=== PATIENT | female | born 1930 | race Caucasian/White ===

== ENCOUNTER → 2017-04-08 | Outpatient (REF) | payer MEDICARE, BC | LOC: M LAB REF 11:08 | PROVIDERS: ATTEND Radiology Practitioner Assistant | DX: R92.0 Mammographic microcalcification found on diagnostic imaging of breast (principal) ==

== ENCOUNTER → 2017-08-30 | Outpatient (CLI) | payer MEDICARE, BC | LOC: M RAD 09:51 | DX: M54.5 Low back pain (principal) | CPT/HCPCS: 78306 ==

== ENCOUNTER → 2018-02-28 | Outpatient (CLI) | payer MEDICARE, BC | LOC: M WUC 13:58 | DX: M25.762 Osteophyte, left knee (principal) | CPT/HCPCS: 73564 ==

== ENCOUNTER 2018-07-27 16:51 | Emergency (ER) | payer MEDICARE, BC ==
[~2018-07-27] VITALS: Ht 160 cm; Wt 77.3 kg
[2018-07-27] MEDS ORDERED: ROSU10TA5 PO (17:02)
[2018-07-27] MEDS ORDERED: OMEP-218 PO (17:02)
[2018-07-27] MEDS ORDERED: LISI10TA4 PO (17:02)
[2018-07-27] MEDS ORDERED: TRAZ-160 PO (17:02)
[2018-07-27] MEDS ORDERED: DULO1CAP3 PO (17:02)
[2018-07-27] MEDS ORDERED: MORPHINE 2 MG/ML 1ML SYRINGE (J2270) IV PRN (17:30)
[2018-07-27] MEDS ORDERED: NS 1,000 ML IV ONE (17:30)
[2018-07-27] MEDS ORDERED: ONDANSETRON 4MG/2ML VIAL (J2405) IV ONE (17:30)
[2018-07-27 17:34] LABS: BASO # 0.1 10^3/uL (0.0-0.2); BASO % 0.3 % (0.0-1.0); EOS # 0.2 10^3/uL (0.0-0.50); EOS % 0.9 % (0.0-3.0); HEMATOCRIT 44.6 % (36.0-47.0); HEMOGLOBIN 14.8 g/dl (12.0-15.5); LYMPH # 1.8 10^3/uL (1.5-4.5); LYMPH % 9.7 % (24.0-44.0); MEAN CORPUSCULAR HEMOGLOBIN 31.9 pg (27.0-33.0); MEAN CORPUSCULAR HGB CONC 33.2 g/dl (32.0-36.5); MEAN CORPUSCULAR VOLUME 96.1 fl (80.0-96.0); MONO # 0.7 10^3/uL (0.0-0.8); NEUTROPHILS # 15.8 10^3/uL (1.8-7.7); NEUTROPHILS % 84.7 % (36.0-66.0); PLATELET COUNT, AUTOMATED 511 10^3/uL (150-450); RED BLOOD COUNT 4.64 10^6/uL (4.00-5.40); WHITE BLOOD COUNT 18.7 10^3/uL (4.0-10.0)
[2018-07-27 17:48] LABS: ALBUMIN 4.2 GM/DL (3.2-5.2); ALT/SGPT 16 U/L (12-78); AMYLASE 51 U/L (25-115); BILIRUBIN,DIRECT 0.1 MG/DL (0.0-0.2); BILIRUBIN,TOTAL 0.4 MG/DL (0.2-1.0); BLOOD UREA NITROGEN 24 MG/DL (7-18); CALCIUM LEVEL 9.4 MG/DL (8.8-10.2); CARBON DIOXIDE LEVEL 25 MEQ/L (21-32); CHLORIDE LEVEL 106 MEQ/L (98-107); CPK CREATINE PHOSPHOKINASE 118 U/L (26-192); CREATININE FOR GFR 1.26 MG/DL (0.55-1.30); GLOMERULAR FILTRATION RATE 42.9 (>32); GLUCOSE, FASTING 133 MG/DL (70-100); LIPASE 105 U/L (73-393); MB/CK RELATIVE INDEX 0.93 (< OR =4); POTASSIUM SERUM 4.5 MEQ/L (3.5-5.1); SODIUM LEVEL 142 MEQ/L (136-145); TOTAL PROTEIN 7.9 GM/DL (6.4-8.2); TROPONIN I < 0.02 NG/ML (< 0.10)
[2018-07-27] MEDS ORDERED: ISOVUE-370 76% 125ML VIAL (Q9967 PER ML) As Ordered ONE (17:51)
--- NOTE | 2018-07-27 19:07 | REP ---
Clinical: Abdominal pain with nausea and diarrhea. Technique: Axial contrast enhanced images from the lung bases to the pubic symphysis using 100 ml Isovue 370 intravenous contrast material with coronal and sagittal re-formations. Comparison: 09/25/2007. Findings: Lung bases demonstrate mild chronic interstitial changes and minimal subpleural fibrosis. Visualized portions of the heart and pericardium are grossly normal. Liver, spleen, pancreas, gallbladder, and bilateral adrenal glands are normal. Atrophic left kidney identified with stable cysts and nonobstructing intrarenal calculi. Right kidney demonstrates few small simple cysts up to 1 cm and no obvious nephrolithiasis. The enteric system is without obstruction or acute inflammatory process. Normal cecum and terminal ileum are identified in the right lower quadrant. Colonic and sigmoid diverticulosis noted without acute diverticulitis. Evaluation of the pelvis demonstrates normal bladder and chronic 5 mm calculus in the distal left ureter. Evidence of prior hysterectomy noted. No ascites. No free air. No adenopathy. Infrarenal IVC filter identified. Atherosclerotic changes to the aorta and vasculature noted without aneurysm. Postsurgical changes involving the thoracolumbar spine noted. Impression: 1. No definite acute abdominopelvic pathology appreciated. 2. Chronic changes to the bilateral kidneys along with bilateral cysts, nonobstructing left intrarenal calculi, and chronic 5 mm distal left ureteral calculus unchanged from 2007 and without perinephric stranding or hydronephrosis. 3. Sigmoid diverticulosis without acute diverticulitis. 4. Further chronic changes as noted above. No ascites, focal inflammatory stranding, or adenopathy appreciated. Electronically Signed by Parviz Goldstein MD 07/27/2018 06:58 P
--- NOTE | 2018-07-27 19:23 | ECGEPIP ---
Stationary ECG Study [facility] - ED Test Date: 2018-07-27 Pat Name: SHIRA MARTINS Department: Room: - Gender: [employer] Operator: CHARANJITKARLA : [id number] Requested By: SHIN Garcia Order Number: [id number] Reading MD: Aime Sherman Measurements Intervals [place] Rate: 96 P: 52 MI: 207 QRS: -20 QRSD: 88 T: 57 QT: 332 QTc: 419 Interpretive Statements SINUS RHYTHM SEPTAL MYOCARDIAL INFARCTION, OF INDETERMINATE AGE LAD NONSPECIFIC ST T WAVE CHANGES NO OLD ECG FOR COMPARISON Electronically Signed On 07-27-2018 19:23:14 EDT by Aime Sherman
[2018-07-27 19:45] VITALS: BP 167/76
== END 2018-07-27 20:14 | disposition home or self-care (01) ==
LOC: EDSEX 16:51 → M ED 16:51 → EDBD 16:51 → M ED 20:14
DX: A04.8 Other specified bacterial intestinal infections (principal); I10 Essential (primary) hypertension; R73.03 Prediabetes; K21.9 Gastro-esophageal reflux disease without esophagitis; Z79.899 Other long term (current) drug therapy
CPT/HCPCS: 74177; 80048; 80076; 82150; 82550; 82553; 83605; 83690; 84484; 85025; 93005; 93041; 96374; 96375; 99284; J2270; J2405; Q9967

== ENCOUNTER → 2019-06-30 | Outpatient (REF) | payer MEDICARE, BC ==
[~2019-06-30] MED LIST: DULO1CAP6 PO; LISI10TA4 PO; OMEP-218 PO; ROSU10TA6 PO; TRAZ-252 PO
[2019-06-30 17:23] LABS: PTH INTACT 104.4 PG/ML (18.5-88.0)
== END ==
LOC: M LAB REF 16:12
PROVIDERS: ATTEND Internal Medicine
DX: N18.3 Chronic kidney disease, stage 3 (moderate) (principal)

== ENCOUNTER 2020-10-13 15:03 | Emergency (ER) | payer MEDICARE, BC ==
[~2020-10-13] VITALS: Ht 160 cm; Wt 79.5 kg
[2020-10-13 15:03] VITALS: BP 143/66
[~2020-10-13 15:03] MED LIST changes: +LISI10TA22 PO; -LISI10TA4 PO
[2020-10-13] MEDS ORDERED: LATA0.0015 (15:13)
[2020-10-13] MEDS ORDERED: LISI20TA33 (15:13)
[2020-10-13] MEDS ORDERED: AUGM875T28 PO (16:54)
[2020-10-13] MEDS ORDERED: AUGMENTIN 875 MG TAB PO ONE (16:55)
[2020-10-13] MEDS ORDERED: BOOSTRIX/ADACEL VACCINE (DIPHTH/PERTUSS/ACELL/TETANUS) 0.5ML SYR IM ONE (16:55)
== END 2020-10-13 17:45 | disposition home or self-care (01) ==
LOC: M ED 15:03
DX: S51.852A Open bite of left forearm, initial encounter (principal); W54.0XXA Bitten by dog, initial encounter; Y92.009 Unspecified place in unspecified non-institutional (private) residence as the place of occurrence of the external cause; Y93.K9 Activity, other involving animal care; Y99.9 Unspecified external cause status; Z79.899 Other long term (current) drug therapy

== ENCOUNTER 2021-01-05 16:49 | Inpatient (IN) | payer MEDICARE, BC ==
[~2021-01-05] VITALS: Ht 162.6 cm; Wt 85.4 kg
[~2021-01-05 16:49] MED LIST changes: +AUGM875T28 PO; +LATA0.0015; +LISI20TA33
[2021-01-05] MEDS ORDERED: MAG-400T7 PO (17:13)
[2021-01-05] MEDS ORDERED: NITR0.4S14 SL (17:13)
[2021-01-05] MEDS ORDERED: METO1TAB32 PO ×2 (17:13→22:44)
[2021-01-05] MEDS ORDERED: traMADol 50 MG TAB PO ONE (17:30)
--- NOTE | 2021-01-05 18:07 | REP ---
INDICATION: pain COMPARISON: None TECHNIQUE: Four views no sunrise view FINDINGS: Bicompartmental calcifications are noted consistent with either calcified meniscal degenerative changes or calcium pyrophosphate deposition disorder. There is no acute fracture, dislocation, or subluxation. IMPRESSION: Chronic changes as described above. <Electronically signed by Vickey Sanchez > 01/05/21 [id number]
--- NOTE | 2021-01-05 18:09 | REP ---
INDICATION: pain. COMPARISON: None TECHNIQUE: AP and frog-lateral views FINDINGS: There is no acute fracture or destructive osseous lesion IMPRESSION: Within normal limits for age no acute abnormality <Electronically signed by Vickey Sanchez > 01/05/21 [id number]
[2021-01-05 19:59] LABS: BASO % 0.5 % (0.0-1.0); EOS # 0.1 10^3/uL (0.0-0.5); EOS % 0.6 % (0.0-3.0); HEMATOCRIT 30.1 % (36.0-47.0); HEMOGLOBIN 9.6 g/dl (12.0-15.5); LYMPH # 1.7 10^3/uL (1.5-5.0); LYMPH % 22.3 % (24.0-44.0); MEAN CORPUSCULAR HEMOGLOBIN 30.5 pg (27.0-33.0); MEAN CORPUSCULAR HGB CONC 31.9 g/dl (32.0-36.5); MEAN CORPUSCULAR VOLUME 95.6 fl (80.0-96.0); MONO # 0.7 10^3/uL (0.0-0.8); NEUTROPHILS # 5.2 10^3/uL (1.5-8.5); NEUTROPHILS % 65.9 % (36.0-66.0); PLATELET COUNT, AUTOMATED 189 10^3/uL (150-450); RED BLOOD COUNT 3.15 10^6/uL (4.00-5.40); WHITE BLOOD COUNT 7.8 10^3/uL (4.0-10.0)
[2021-01-05 20:14] LABS: CALCIUM LEVEL 8.7 MG/DL (8.8-10.2); CREATININE FOR GFR 1.71 MG/DL (0.55-1.30); GLOMERULAR FILTRATION RATE 29.9 (>32); POTASSIUM SERUM 4.7 MEQ/L (3.5-5.1)
[2021-01-05 20:26] LABS: RSV AMPLIFICATION NEGATIVE (NEGATIVE)
[2021-01-05] MEDS ORDERED: GLUCAGON INJ 1MG VIAL SC PRN (20:55)
[2021-01-05] MEDS ORDERED: DEXTROSE 50% 50 ML SYRINGE IV PRN (20:55)
[2021-01-05] MEDS ORDERED: ACETAMINOPHEN TAB 650MG DOSE (2X325MG) PO PRN (20:55)
[2021-01-05] MEDS ORDERED: GLUCOSE 4GM CHEW TABLET PO PRN (20:55)
[2021-01-05] MEDS ORDERED: HumaLOG INSULIN (NovoLOG) PER UNIT SC SCH (21:00)
[2021-01-05 21:28] LABS: PERCENT SATURATION 26.3 % (13.2-45.0)
[2021-01-05] MEDS: traMADol 50 MG TAB PO PRN (21:35)
[2021-01-05] MEDS ORDERED: XALA0.007 OU (22:22)
[2021-01-05] MEDS ORDERED: NITR4TASL SL (22:22)
[2021-01-05] MEDS ORDERED: REFR0.5D8 OU (22:22)
[2021-01-05] MEDS ORDERED: LISI20TA33 PO (22:22)
[2021-01-05] MEDS ORDERED: MAGN400T3 PO (22:22)
[2021-01-05] MEDS ORDERED: ROSU10TA6 PO (22:22)
[2021-01-05] MEDS ORDERED: ASPI-161 PO (22:24)
[2021-01-05] MEDS ORDERED: HOME MED LIST COMPLETE! XX SCH (22:25)
[2021-01-05] MEDS ORDERED: NS 1,000 ML IV SCH (22:30)
[2021-01-05 22:54] LABS: MAGNESIUM LEVEL 2.1 MG/DL (1.8-2.4)
--- NOTE | 2021-01-05 23:12 | HPEPDOC ---
General Date of Admission 01/05/21 Date of Service: Jan 05, 2021 Chief Complaint Knee Pain. Source: Patient History of Present Illness Arabella Salinas 89-year-old female with significant history of hypertension, hyperlipidemia, chronic low back pain, GERD, heart murmur and glaucoma who presents with complaints of right knee pain. Patient reports that she has been at baseline until yesterday she was getting into her car and as she put her left leg into the car and was turning to get her right leg into the car she heard a "snap" and felt instant right knee pain sharp moderate level worse with ambulation to the point where patient reports that she had trouble walking with her walker and had to come into ER today. Patient reports that she had to call EMS in order to come to the hospital. Pt denies petty, sinus congestion, sore throat, productive cough, palpitations, chest pain, n/v/d, abdominal pain, weakness, sensory changes or syncope. She reports that she has trouble walking not because the knee gives out or weakness but because of the pain when she puts any weight on the right side. She denies history of knee surgery or trauma. Patient does also to note some dyspnea on exertion with review of systems but this is not more than baseline; patient somewhat poor historian but remarks regarding having a heart murmur and her doctor told her she can no longer walk very far such as to the mailbox. She denies a history of CHF, but does describe history of smoking 20+ years. Patient lives at home alone and she is agreeable to home health or rehab if needed. Home Medications Scheduled Aspirin (Aspirin EC) 81 Mg Tablet.dr, 81 MG PO DAILY, (Reported) Duloxetine Hcl (Duloxetine HCl) 60 Mg Cap, 60 MG PO DAILY, (Reported) Latanoprost (Xalatan) 0.005% 2.5ML Drops, 1 DROP OU QHS, (Reported) Lisinopril (Lisinopril) 20 Mg Tablet, 20 MG PO DAILY, (Reported) Magnesium Oxide (Magnesium Oxide) 400 Mg Tablet, 800 MG PO QHS, (Reported) Metoprolol Succinate (Metoprolol Succinate) 25 Mg Tab.er.24h, 25 MG PO DAILY, (Reported) Omeprazole (Omeprazole) 20 Mg Cap, 20 MG PO DAILY, (Reported) Rosuvastatin Calcium (Rosuvastatin Calcium) 10 Mg Tablet, 10 MG PO DAILY, (Reported) Trazodone HCl (Trazodone HCl) 50 Mg Tab, 50 MG PO QHS, (Reported) Scheduled PRN Carboxymethylcellulose Sodium (Refresh Tears) 15 Ml Drops, 1 DROP OU QID PRN for DRY EYES, (Reported) Nitroglycerin (Nitrostat) 0.4 Mg Tab.subl, 0.4 MG SL NITRO PRN for CHEST PAIN, (Reported) Allergies Coded Allergies: No Known Allergies (Unverified , 07/27/18) Past Medical History Medical History hypertension, hyperlipidemia, chronic low back pain, GERD, heart murmur, "1 working kidney", macular degeneration and glaucoma Surgical History Appendectomy, hysterectomy, 3 back surgeries over 10 years ago Family History Significant Family History: Diabetes Social History * Smoker: former Smoker (Smoked for over 20 years; reports quitting 20 years ago) Alcohol: Denies Drugs: denies Recent Travel/Sick Contacts: Denies: Recent travel, Recent sick contacts Psychosocial History: No pertinent psych hx Patient lives at home alone A-FIB/CHADSVASC A-FIB History Current/History of A-Fib/PAF?: No Current PO Anticoag Therapy: No Review of Systems Constitutional: Denies: Chills, Fever, Night Sweats Eyes: Denies: Pain, Vision change ENT: Denies: Head Aches, Ear Pain, Dysphagia Skin: Denies: Rash, Lesions, Breakdown Pulmonary: Denies: Dyspnea, Cough Cardiovascular: Reports: Other Symptoms; Denies: Chest Pain, Palpitations, Orthopnea, Paroxysmal Noc. Dyspnea, Lt Headedness Gastrointestinal: Denies: Nausea, Vomiting, Abdominal Pain, Diarrhea Genitourinary: Denies: Dysuria, Frequency, Incontinence, Retention Hematologic: Denies: Bruising, Bleeding Excessively Musculoskeletal: Reports: Joint Pain; Denies: Neck Pain, Back Pain, Muscle Pain, Spasms Neurological: Denies: Weakness, Numbness, Change in speech, Confusion Psych: Reports: Mood Normal; Denies: Depression, Memory Issues Physical Examination General Exam: Positive: Alert, No Acute Distress Eye Exam: Positive: PERRLA, Conjunctiva & lids normal, EOMI; Negative: Sclera icteric ENT Exam: Positive: Atraumatic, Mucous membr. moist/pink, Pharynx Normal Neck Exam: Positive: Supple; Negative: JVD, thyromegaly Chest Exam: Positive: Clear to auscultation, Normal air movement Heart Exam: Positive: Rate Normal, Regular Rhythm, Murmurs; Negative: Rubs Abdomen Exam: Positive: Normal bowel sounds, Soft; Negative: Tenderness, Hepatospenomegaly Extremity Exam: Positive: Normal pulses, Tenderness, Swelling, Other (Right knee tenderness with palpation, anterior below the kneecap as well as lateral aspect of the knee (along be meniscus zone); passive ROM intact); Negative: Clubbing, Cyanosis, Edema Skin Exam: Positive: Nl turgor and temperature; Negative: Breakdown, Lesion Neuro Exam: Positive: Normal Speech, Strength at 5/5 X4 ext, Cranial Nerves 3- 12 NL, Reflexes 2+; Negative: Normal Gait Psych Exam: Positive: Mental status NL, Mood NL, Oriented x 3 Vital Signs Vital Signs Date Time Temp Pulse Resp B/P (MAP) Pulse Ox O2 Delivery O2 Flow Rate FiO2 01/05/21 20:19 91 95 01/05/21 20:15 16 153/107 (122) Room Air 01/05/21 17:04 97.8 Laboratory Data Labs 24H Laboratory Tests 2 01/05/21 19:27: Immature Granulocyte % (Auto) 1.7, Neutrophils (%) (Auto) 65.9, Lymphocytes (%) (Auto) 22.3L, Monocytes (%) (Auto) 9.0H, Eosinophils (%) (Auto) 0.6, Basophils (%) (Auto) 0.5, Neutrophils # (Auto) 5.2, Lymphocytes # (Auto) 1.7, Monocytes # (Auto) 0.7, Eosinophils # (Auto) 0.1, Basophils # (Auto) 0.0, Nucleated Red Blood Cells % (auto) 0.0, Anion Gap 8, Glomerular Filtration Rate 29.9L, Calcium Level 8.7L, Coronavirus (COVID-19)(PCR) NEGATIVE, Influenza Type A (RT-PCR) N EGATIVE, Influenza Type B (RT-PCR) NEGATIVE, Respiratory Syncytial Virus (PCR) NEGATIVE CBC/BMP Laboratory Tests 01/05/21 19:27 RAD Interpretation STUDY: Hip x-ray Rad Actions: Report Reviewed STUDY: Right knee x-ray Rad Actions: Report Reviewed, Discussed with the pt Assessment/Plan 1. Right knee pain: X-ray "Bicompartmental calcifications are noted consistent with either calcified meniscal degenerative changes or calcium pyrophosphate deposition disorder. There is no acute fracture, dislocation, or subluxation." - Pt denies hx of knee pain, but in 2018 xray of left knee gave similar read of CPPD -Symptom management/supportive care with Abebe wrap, pain medication, lido patch and NSAID patch -Will trial prednisone, pt a1c 6, chart review questionable for NIDDM, but pt denies hx of DM and BG checks have been BG <130 -Appreciate physical therapy eval and treatment -Consider CT of knee and Ortho consult 2. Dyspnea on exertion in patient with murmur/ anemia/former smoker: NEELY described as progressive overtime. Hemoglobin 9.6. Last hemoglobin 14.8 in 2019. Chest x-ray pending. She denies any history of anemia, dark stools or recent blood loss/surgery. Possibly some symptomatic anemia component. -Will check anemia profile. Check Hemoccult. -A.m. labs. -As needed breathing treatment -consider differential. 3. Elevated creatinine: Unknown baseline. Patient did remark "only having one kidney working" but she cannot say if she has a CKD diagnosis. -Plan for gentle hydration x1 bag fluid challenge monitoring for any overload. -A.m. labs. -Avoid nephrotoxins as able (will hold home lisinopril for now) 4. Hypertension: Patient had elevated blood pressure in setting of pain during arrival to ER and she had not yet taken her nighttime medications. -Monitor blood pressure and continue home medications. 5. HDL: Continue home statin once reconciled. 6. Macular degeneration/glaucoma: Patient reports that she typically has eyedrops at home. Plan to continue eyedrops once reconciled. 7. Obesity: Complicates care DVT: Heparin subcu, SCDs CODE STATUS: Full Disposition: Home with physical therapy versus rehab Plan / VTE VTE Prophylaxis Ordered?: Yes GIACOMO ARCE NP Jan 05, 2021 21:01 MAURO GONZALEZ MD Jan 06, 2021 06:45
[2021-01-05] MEDS ORDERED: NITROGLYCERIN 0.4 MG SUBL TABLET SL PRN (23:15)
--- NOTE | 2021-01-05 23:30 | REPVR ---
PROCEDURE INFORMATION: Exam: XR Chest Exam date and time: 01/05/21 (10:38pm) Age: 89 years old Clinical indication: NEELY TECHNIQUE: Imaging protocol: Portable CXR Views: 1 view COMPARISON: NM Bone Scan Whole Body of 08/30/17 FINDINGS: Lungs: Unremarkable. No consolidation. Pleural spaces: Unremarkable. No pleural effusions. No pneumothorax. Heart/Mediastinum: Cardiomegaly. Bones/joints: Spinal hardware (bilateral spinal rods and screws) (partially imaged). IMPRESSION: No definite acute pathology. No focal infiltrates. No pleural effusions. Cardiomegaly. Electronically signed by: Shannan Lewis On 01/05/2021 23:29:38 PM
[2021-01-05 23:48] VITALS: BP 144/57
[2021-01-06 00:49] LABS: APPEARANCE, URINE CLEAR (CLEAR); BACTERIA, URINE AUTO NEGATIVE (NEGATIVE); BILIRUBIN, URINE AUTO NEGATIVE (NEGATIVE); BLOOD, URINE BLOOD 1+ (NEGATIVE); COLOR, URINE YELLOW (YELLOW); GLUCOSE, URINE (UA) AUTO NEGATIVE (NEGATIVE); KETONE, URINE AUTO NEGATIVE (NEGATIVE); LEUKOCYTE ESTERASE, URINE AUTO 2+ (NEGATIVE); MUCUS, URINE SMALL (NEGATIVE); NITRITE, URINE AUTO NEGATIVE (NEGATIVE); PROTEIN, URINE AUTO 3+ mg/dL (NEGATIVE); RBC, URINE AUTO 3 /HPF (0-3); SPECIFIC GRAVITY URINE AUTO 1.013 (1.002-1.035); SQUAMOUS EPITHELIAL CELL UR AU 1 /HPF (0-6); TRANSITIONAL EPITHELIAL AUTO <1 /HPF; UROBILINOGEN, URINE AUTO 0.2 mg/dL (0.0-2.0); WBC, URINE AUTO 22 /HPF (0-3)
[2021-01-06] MEDS ORDERED: DOCUSATE SODIUM 100MG CAPSULE PO PRN (00:50)
[2021-01-06] MEDS: traZODone 50 MG TAB PO SCH ×2 (01:09→20:43)
[2021-01-06] MEDS: predniSONE 10 MG TAB PO SCH ×3 (01:10→09:17)
[2021-01-06] MEDS: MAGNESIUM OXIDE 400MG TAB (MAG-OX) PO SCH ×2 (01:10→20:43)
[2021-01-06] MEDS: POLYVINYL ALCOHOL OPHTH SOLN 15 ML(LIQUITEARS) OU PRN (01:10)
[2021-01-06] MEDS: LATANOPROST 0.005% OPHTH SOLN 2.5 ML OU SCH ×2 (01:10→20:44)
[2021-01-06] MEDS: LIDOCAINE 5% (LIDODERM) PATCH TD SCH ×2 (01:11→20:46)
[2021-01-06] MEDS: DICLOFENAC EPOLAMINE 1.3 % PATCH TOP SCH ×3 (01:11→20:46)
[2021-01-06 05:41] VITALS: BP 171/75
[2021-01-06] MEDS: HEPARIN SOD (PORCINE) 5000UNITS/ML 1ML VIAL/SYRINGE SC SCH ×3 (06:03→20:44)
[2021-01-06 07:27] LABS: BASO # 0.1 10^3/uL (0.0-0.2); BASO % 0.6 % (0.0-1.0); EOS # 0.1 10^3/uL (0.0-0.5); EOS % 0.9 % (0.0-3.0); HEMATOCRIT 31.4 % (36.0-47.0); HEMOGLOBIN 9.9 g/dl (12.0-15.5); LYMPH # 1.9 10^3/uL (1.5-5.0); LYMPH % 24.3 % (24.0-44.0); MEAN CORPUSCULAR HEMOGLOBIN 30.5 pg (27.0-33.0); MEAN CORPUSCULAR HGB CONC 31.5 g/dl (32.0-36.5); MEAN CORPUSCULAR VOLUME 96.6 fl (80.0-96.0); MONO # 0.8 10^3/uL (0.0-0.8); MONO % 9.6 % (2.0-8.0); NEUTROPHILS # 4.9 10^3/uL (1.5-8.5); NEUTROPHILS % 63.1 % (36.0-66.0); PLATELET COUNT, AUTOMATED 208 10^3/uL (150-450); RED BLOOD COUNT 3.25 10^6/uL (4.00-5.40); WHITE BLOOD COUNT 7.8 10^3/uL (4.0-10.0)
[2021-01-06] MEDS ORDERED: HumaLOG INSULIN (NovoLOG) PER UNIT SC SCH (07:30)
[2021-01-06 07:53] LABS: CALCIUM LEVEL 8.8 MG/DL (8.8-10.2); CREATININE FOR GFR 1.53 MG/DL (0.55-1.30); POTASSIUM SERUM 4.2 MEQ/L (3.5-5.1)
[2021-01-06] MEDS ORDERED: FLUBLOK(EGG FREE)(QUAD)INFLUENZA VACC 0.5ML SYRINGE 18YRS & OLDER IM ONE (09:00)
[2021-01-06] MEDS: ASPIRIN 81MG ENTERIC TABLET PO SCH (09:15)
[2021-01-06] MEDS: DULoxetine 30MG CAPSULE (CYMBALTA) PO SCH (09:15)
[2021-01-06] MEDS: OMEPRAZOLE 20 MG CAP PO SCH (09:15)
[2021-01-06] MEDS: ROSUVASTATIN 10 MG TAB (CRESTOR) PO SCH (09:15)
[2021-01-06] MEDS: METOPROLOL SUCC *XL* 25MG TAB (TopROL *XL*) PO SCH (09:16)
[2021-01-06] MEDS: traMADol 50 MG TAB PO PRN (09:18)
[2021-01-06] MEDS: **NOTE PATIENT COMMENT** MISC XX SCH (09:22)
--- NOTE | 2021-01-06 10:38 | DSES ---
DISCHARGE SUMMARY DATE OF ADMISSION: 01/05/2021 DATE OF DISCHARGE: 01/06/2021 PRINCIPAL DIAGNOSIS: 1. Inability to ambulate due to pain in her right knee. HISTORY: The patient hurt her right knee "___" when she was getting in a car. She had severe instant pain, came to the Emergency Room and did not feel she could ambulate well enough to be home. HOSPITAL COURSE: She was put up on 5 Hdz. The nursing staff said overnight she got out of bed, went to the bathroom and did everything else by herself. Therefore, I expected she probably could go home. Today, her lab work shows a sodium of 139, potassium of 4.2, BUN 35, creatinine 0.5, glucose 126. B12 and folate were normal. White count 7.8, hemoglobin 9.9, platelets 208,000. COVID test negative. Knee x-ray unremarkable. DISPOSITION: She will be discharged home if she passes her home safety evaluation. I anticipate she will as she was observed ambulating in the room. She will follow-up with her primary care provider in a week. Activity as tolerated. No added salt diet. Medicines are unchanged from admission; aspirin 81 mg daily, Duloxetine 60 mg daily, Lisinopril 20 mg daily, Mag-Ox 800 mg at bedtime, Metoprolol Succinate 25 mg daily, Omeprazole 20 mg daily, rosuvastatin 10 mg daily, trazodone 50 mg q.h.s., Nitrostat p.r.n. and her various eyedrops. She carries the diagnosis of heart murmur. She has had some dyspnea on exertion. I ordered an echocardiogram. If this is not done before discharge, I would strongly encourage outpatient provider to do an echocardiogram on her.
[2021-01-06 14:00] VITALS: BP 166/81
[2021-01-06 22:00] VITALS: BP 137/67
[2021-01-07] MEDS ORDERED: HALOPERIDOL 5MG/ML VIAL (J1630 PER 1) IM PRN (02:10)
[2021-01-07] MEDS ORDERED: OLANZapine INTRAMUSCULAR 10MG VIAL IM PRN (02:15)
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
[2021-01-07] MEDS: HEPARIN SOD (PORCINE) 5000UNITS/ML 1ML VIAL/SYRINGE SC SCH ×3 (05:27→20:47)
[2021-01-07] MEDS: ROSUVASTATIN 10 MG TAB (CRESTOR) PO SCH (09:55)
[2021-01-07] MEDS: traMADol 50 MG TAB PO PRN (09:55)
[2021-01-07] MEDS: DICLOFENAC EPOLAMINE 1.3 % PATCH TOP SCH ×2 (09:55→20:48)
[2021-01-07] MEDS: predniSONE 10 MG TAB PO SCH (09:56)
[2021-01-07] MEDS: ASPIRIN 81MG ENTERIC TABLET PO SCH (09:56)
[2021-01-07] MEDS: OMEPRAZOLE 20 MG CAP PO SCH (09:56)
[2021-01-07] MEDS: DULoxetine 30MG CAPSULE (CYMBALTA) PO SCH (09:56)
[2021-01-07] MEDS: METOPROLOL SUCC *XL* 25MG TAB (TopROL *XL*) PO SCH (09:57)
[2021-01-07] MEDS: **NOTE PATIENT COMMENT** MISC XX SCH (09:58)
[2021-01-07 10:10] LABS: BASO # 0.1 10^3/uL (0.0-0.2); BASO % 0.8 % (0.0-1.0); EOS % 0.6 % (0.0-3.0); HEMATOCRIT 29.9 % (36.0-47.0); HEMOGLOBIN 9.4 g/dl (12.0-15.5); LYMPH # 1.3 10^3/uL (1.5-5.0); LYMPH % 19.7 % (24.0-44.0); MEAN CORPUSCULAR HEMOGLOBIN 30.8 pg (27.0-33.0); MEAN CORPUSCULAR HGB CONC 31.4 g/dl (32.0-36.5); MONO # 0.5 10^3/uL (0.0-0.8); MONO % 7.4 % (2.0-8.0); NEUTROPHILS # 4.6 10^3/uL (1.5-8.5); NEUTROPHILS % 69.2 % (36.0-66.0); PLATELET COUNT, AUTOMATED 202 10^3/uL (150-450); RED BLOOD COUNT 3.05 10^6/uL (4.00-5.40); WHITE BLOOD COUNT 6.6 10^3/uL (4.0-10.0)
[2021-01-07 10:30] LABS: CALCIUM LEVEL 9.1 MG/DL (8.8-10.2); CREATININE FOR GFR 1.48 MG/DL (0.55-1.30); GLOMERULAR FILTRATION RATE 35.4 (>32); POTASSIUM SERUM 4.1 MEQ/L (3.5-5.1)
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
--- NOTE | 2021-01-07 11:45 | ECHO ---
ECHOCARDIOGRAM DATE OF PROCEDURE: 01/06/2021 Age: 89 Gender: Female Height: 163 cm Weight: 85 kg PATIENT LOCATION: Room 5144 REFERRING PHYSICIAN: Dr. Jacky Payne REASON FOR THIS STUDY: Shortness of breath 2D MEASUREMENTS: IVS 1.0 cm LV 3.5 cm LVPW 1.1 cm LA 3.3 cm Aorta 2.8 cm IVC 1.8 cm DOPPLER MEASUREMENT Peak velocity across the aortic valve 2.2 m/s Peak velocity across the LVOT 1.2 m/s Peak gradient across the aortic valve 19 mmHg Mean gradient across the aortic valve 10 mmHg Mitral E 0.78 Mitral A 0.99 with a ratio of 0.8 2D COMMENTS: 1. Normal left ventricle size, wall thickness and normal global left ventricular systolic function. The estimated left ventricular systolic ejection fraction is 60-65%. 2. Normal left atrium. Normal right atrium and right ventricle. 3. The atrial septum appeared to be normal without evidence of defect or shunt. 4. Normal aortic root. 5. No pericardial effusion seen. 6. Mildly to moderately calcified aortic valve with decrease in leaflet excursion. Normal mitral valve, tricuspid valve, and pulmonic valve. The proximal pulmonary artery branches also appeared to be normal in limited views. 7. The inferior vena cava was normal in size, central venous pressure is most likely normal. DOPPLER: No significant valvular abnormalities detected, but mild mitral regurgitation. Abnormal relaxation pattern was noted across the mitral valve leaflets as well as the mitral valve annulus, consistent with features of grade 1 left ventricular diastolic dysfunction. IMPRESSION: 1. Normal global left ventricular systolic function. There are some features of grade 1 left ventricular diastolic dysfunction manifested by abnormal relaxation. 2. Aortic valve sclerosis with mild aortic stenosis, but no aortic regurgitation. 3. Isolated mild mitral regurgitation. MTDD
[2021-01-07 14:00] VITALS: BP 145/96
[2021-01-07] MEDS ORDERED: OLANZapine 5 MG TAB PO PRN (20:35)
[2021-01-07] MEDS: MAGNESIUM OXIDE 400MG TAB (MAG-OX) PO SCH (20:46)
[2021-01-07] MEDS: LATANOPROST 0.005% OPHTH SOLN 2.5 ML OU SCH (20:46)
[2021-01-07] MEDS: traZODone 50 MG TAB PO SCH (20:46)
[2021-01-07] MEDS: LIDOCAINE 5% (LIDODERM) PATCH TD SCH (20:47)
[2021-01-07 22:00] VITALS: BP 130/70
[2021-01-08] MEDS: traMADol 50 MG TAB PO PRN (01:34)
[2021-01-08 06:00] VITALS: BP 139/70
[2021-01-08] MEDS: HEPARIN SOD (PORCINE) 5000UNITS/ML 1ML VIAL/SYRINGE SC SCH ×3 (06:04→21:15)
[2021-01-08 07:07] LABS: BASO % 0.6 % (0.0-1.0); EOS % 0.6 % (0.0-3.0); HEMATOCRIT 29.8 % (36.0-47.0); HEMOGLOBIN 9.4 g/dl (12.0-15.5); LYMPH # 1.4 10^3/uL (1.5-5.0); LYMPH % 21.8 % (24.0-44.0); MEAN CORPUSCULAR HEMOGLOBIN 30.9 pg (27.0-33.0); MEAN CORPUSCULAR HGB CONC 31.5 g/dl (32.0-36.5); MONO # 0.4 10^3/uL (0.0-0.8); MONO % 6.7 % (2.0-8.0); NEUTROPHILS # 4.4 10^3/uL (1.5-8.5); NEUTROPHILS % 67.7 % (36.0-66.0); PLATELET COUNT, AUTOMATED 204 10^3/uL (150-450); RED BLOOD COUNT 3.04 10^6/uL (4.00-5.40); WHITE BLOOD COUNT 6.6 10^3/uL (4.0-10.0)
[2021-01-08 07:30] LABS: CALCIUM LEVEL 8.8 MG/DL (8.8-10.2); CREATININE FOR GFR 1.66 MG/DL (0.55-1.30); POTASSIUM SERUM 4.9 MEQ/L (3.5-5.1)
[2021-01-08] MEDS: **NOTE PATIENT COMMENT** MISC XX SCH (09:00)
[2021-01-08] MEDS: DICLOFENAC EPOLAMINE 1.3 % PATCH TOP SCH ×2 (10:08→21:15)
[2021-01-08] MEDS: DULoxetine 30MG CAPSULE (CYMBALTA) PO SCH (10:08)
[2021-01-08] MEDS: predniSONE 10 MG TAB PO SCH (10:08)
[2021-01-08] MEDS: ROSUVASTATIN 10 MG TAB (CRESTOR) PO SCH (10:09)
[2021-01-08] MEDS: ASPIRIN 81MG ENTERIC TABLET PO SCH (10:09)
[2021-01-08] MEDS: OMEPRAZOLE 20 MG CAP PO SCH (10:09)
[2021-01-08] MEDS: METOPROLOL SUCC *XL* 25MG TAB (TopROL *XL*) PO SCH (10:10)
--- NOTE | 2021-01-08 15:08 | IPN ---
PROGRESS NOTE DATE: 01/08/2021 SUBJECTIVE: Arabella is still here. We had tried to discharge her when she was seen walking in the room by herself, but physical therapy worked with her and they feel her functional ability is far below her baseline. She [facility] after discharge. Her echocardiogram came back. She had a heart murmur and we worked that up. Ejection fraction was normal and she has aortic sclerosis without stenosis. PHYSICAL EXAMINATION: Vital signs stable. Lungs clear. Heart regular rhythm. Abdomen soft, nontender. Right knee is a little swollen, no warmth of redness. No palpable effusion. LABORATORY DATA: CBC, BMP unremarkable. IMPRESSION: 1. She is medically stable at this point for either discharge home if she could do that or rehab. 2. Aortic sclerosis on echocardiogram; no aortic stenosis seen.
[2021-01-08] MEDS: traZODone 50 MG TAB PO SCH (21:14)
[2021-01-08] MEDS: MAGNESIUM OXIDE 400MG TAB (MAG-OX) PO SCH (21:14)
[2021-01-08] MEDS: LATANOPROST 0.005% OPHTH SOLN 2.5 ML OU SCH (21:14)
[2021-01-08] MEDS: POLYVINYL ALCOHOL OPHTH SOLN 15 ML(LIQUITEARS) OU PRN (21:15)
[2021-01-08] MEDS: LIDOCAINE 5% (LIDODERM) PATCH TD SCH (21:15)
[2021-01-08 22:00] VITALS: BP 115/60
[2021-01-09 06:00] VITALS: BP 154/70
[2021-01-09] MEDS: traMADol 50 MG TAB PO PRN (06:16)
[2021-01-09] MEDS: HEPARIN SOD (PORCINE) 5000UNITS/ML 1ML VIAL/SYRINGE SC SCH ×3 (06:17→21:32)
[2021-01-09] MEDS: ROSUVASTATIN 10 MG TAB (CRESTOR) PO SCH (08:05)
[2021-01-09] MEDS: DULoxetine 30MG CAPSULE (CYMBALTA) PO SCH (08:05)
[2021-01-09] MEDS: DICLOFENAC EPOLAMINE 1.3 % PATCH TOP SCH ×2 (08:05→21:33)
[2021-01-09] MEDS: OMEPRAZOLE 20 MG CAP PO SCH (08:05)
[2021-01-09] MEDS: predniSONE 10 MG TAB PO SCH (08:05)
[2021-01-09] MEDS: ASPIRIN 81MG ENTERIC TABLET PO SCH (08:05)
[2021-01-09] MEDS: METOPROLOL SUCC *XL* 25MG TAB (TopROL *XL*) PO SCH (08:06)
[2021-01-09] MEDS: **NOTE PATIENT COMMENT** MISC XX SCH (08:06)
--- NOTE | 2021-01-09 11:16 | IPN ---
PROGRESS NOTE DATE: 01/09/2021 SUBJECTIVE: Arabella still thinks she cannot walk or get out of bed very well because of right knee pain. OBJECTIVE: VITAL SIGNS: Afebrile. Vital signs stable. GENERAL APPEARANCE: Alert, conversant. No distress. LUNGS: Clear. HEART: Regular rate and rhythm. ABDOMEN: Soft, nontender. EXTREMITIES: No peripheral edema. Right knee is a little tender to palpate laterally. She flexes and extends it without significant pain. The knee is wrapped in an Abebe wrap. She flexes and extends it more while distracted in conversation. IMPRESSION AND PLAN: Right knee pain. It seems to be limiting her activity. I was expecting that she was doing to be discharged a few days ago. Physical Therapy was working with her last week. If she is not able to be discharged today we will ask Orthopedics to look at her.
[2021-01-09] MEDS ORDERED: traMADol 50 MG TAB PO PRN (13:30)
[2021-01-09 14:00] VITALS: BP 145/81
[2021-01-09] MEDS: LIDOCAINE 5% (LIDODERM) PATCH TD SCH ×2 (21:00→21:33)
[2021-01-09 21:03] VITALS: BP 162/68
[2021-01-09] MEDS: traZODone 50 MG TAB PO SCH (21:32)
[2021-01-09] MEDS: POLYVINYL ALCOHOL OPHTH SOLN 15 ML(LIQUITEARS) OU PRN (21:33)
[2021-01-09] MEDS: LATANOPROST 0.005% OPHTH SOLN 2.5 ML OU SCH (21:33)
[2021-01-09] MEDS: MAGNESIUM OXIDE 400MG TAB (MAG-OX) PO SCH (21:33)
[2021-01-10 04:36] VITALS: BP 136/51
[2021-01-10] MEDS: HEPARIN SOD (PORCINE) 5000UNITS/ML 1ML VIAL/SYRINGE SC SCH ×3 (06:28→21:31)
[2021-01-10] MEDS: ACETAMINOPHEN 500 MG TAB PO PRN ×3 (09:29→21:30)
[2021-01-10] MEDS: OMEPRAZOLE 20 MG CAP PO SCH (09:30)
[2021-01-10] MEDS: predniSONE 10 MG TAB PO SCH (09:30)
[2021-01-10] MEDS: ROSUVASTATIN 10 MG TAB (CRESTOR) PO SCH (09:30)
[2021-01-10] MEDS: DULoxetine 30MG CAPSULE (CYMBALTA) PO SCH (09:30)
[2021-01-10] MEDS: METOPROLOL SUCC *XL* 25MG TAB (TopROL *XL*) PO SCH (09:30)
[2021-01-10] MEDS: ASPIRIN 81MG ENTERIC TABLET PO SCH (09:30)
[2021-01-10] MEDS: DICLOFENAC EPOLAMINE 1.3 % PATCH TOP SCH ×2 (09:31→21:31)
[2021-01-10] MEDS: **NOTE PATIENT COMMENT** MISC XX SCH (09:32)
[2021-01-10 11:02] LABS: BASO # 0.1 10^3/uL (0.0-0.2); BASO % 0.8 % (0.0-1.0); EOS % 0.6 % (0.0-3.0); HEMATOCRIT 30.9 % (36.0-47.0); HEMOGLOBIN 9.8 g/dl (12.0-15.5); LYMPH # 1.5 10^3/uL (1.5-5.0); LYMPH % 24.2 % (24.0-44.0); MEAN CORPUSCULAR HEMOGLOBIN 30.7 pg (27.0-33.0); MEAN CORPUSCULAR HGB CONC 31.7 g/dl (32.0-36.5); MEAN CORPUSCULAR VOLUME 96.9 fl (80.0-96.0); MONO # 0.4 10^3/uL (0.0-0.8); MONO % 6.4 % (2.0-8.0); NEUTROPHILS # 4.2 10^3/uL (1.5-8.5); NEUTROPHILS % 65.6 % (36.0-66.0); PLATELET COUNT, AUTOMATED 245 10^3/uL (150-450); RED BLOOD COUNT 3.19 10^6/uL (4.00-5.40); WHITE BLOOD COUNT 6.4 10^3/uL (4.0-10.0)
[2021-01-10 12:14] LABS: ALBUMIN 3.4 GM/DL (3.2-5.2); BILIRUBIN,TOTAL 0.3 MG/DL (0.2-1.0); CALCIUM LEVEL 9.3 MG/DL (8.8-10.2); CREATININE FOR GFR 1.72 MG/DL (0.55-1.30); GLOMERULAR FILTRATION RATE 29.7 (>32); MAGNESIUM LEVEL 2.3 MG/DL (1.8-2.4); POTASSIUM SERUM 5.1 MEQ/L (3.5-5.1); TOTAL PROTEIN 6.7 GM/DL (6.4-8.2)
[2021-01-10 14:00] VITALS: BP 135/52
--- NOTE | 2021-01-10 15:38 | DS.PDOC ---
Discharge Summary General Date of Admission Jan 09, 2021 at 13:44 Date of Discharge 01/11/21 Discharge Summary Addendum to discharge summary Patient was examined in the morning. Physical exam pertinent for limited mobility of right knee in flexion and extension. Patient will be discharge to acute rehab for continuation of therapy Vital Signs/I&Os Vital Signs Date Time Temp Pulse Resp B/P (MAP) Pulse Ox O2 Delivery O2 Flow Rate FiO2 01/10/21 14:00 99.0 68 17 135/52 (79) 97 Room Air I&O- Last 24 Hours up to 6 AM 01/10/21 06:00 Intake Total 1110 ml Balance 1110 ml Laboratory Data Labs 24H Laboratory Tests 2 01/10/21 10:49: Immature Granulocyte % (Auto) 2.4, Neutrophils (%) (Auto) 65.6, Lymphocytes (%) (Auto) 24.2, Monocytes (%) (Auto) 6.4, Eosinophils (%) (Auto) 0.6, Basophils (%) (Auto) 0.8, Neutrophils # (Auto) 4.2, Lymphocytes # (Auto) 1.5, Monocytes # (Auto) 0.4, Eosinophils # (Auto) 0.0, Basophils # (Auto) 0.1, Nucleated Red Blood Cells % (auto) 0.3H, Anion Gap 6L, Glomerular Filtration Rate 29.7L, Calcium Level 9.3, Magnesium Level 2.3, Total Bilirubin 0.3, Aspartate Amino Transf (AST/SGOT) 19, Alanine Aminotransferase (ALT/SGPT) 30, Alkaline Phosphatase 75, Total Protein 6.7, Albumin 3.4, Albumin/Globulin Ratio 1.0L CBC/BMP Laboratory Tests 01/10/21 10:49 Microbiology Microbiology 01/08/21 Urine Culture - Final, Complete Discharge Medications Scheduled Aspirin (Aspirin EC) 81 Mg Tablet.dr, 81 MG PO DAILY, (Reported) Duloxetine Hcl (Duloxetine HCl) 60 Mg Cap, 60 MG PO DAILY, (Reported) Latanoprost (Xalatan) 0.005% 2.5ML Drops, 1 DROP OU QHS, (Reported) Lisinopril (Lisinopril) 20 Mg Tablet, 20 MG PO DAILY, (Reported) Magnesium Oxide (Magnesium Oxide) 400 Mg Tablet, 800 MG PO QHS, (Reported) Metoprolol Succinate (Metoprolol Succinate) 25 Mg Tab.er.24h, 25 MG PO DAILY, (Reported) Omeprazole (Omeprazole) 20 Mg Cap, 20 MG PO DAILY, (Reported) Rosuvastatin Calcium (Rosuvastatin Calcium) 10 Mg Tablet, 10 MG PO DAILY, (Reported) Trazodone HCl (Trazodone HCl) 50 Mg Tab, 50 MG PO QHS, (Reported) Scheduled PRN Carboxymethylcellulose Sodium (Refresh Tears) 15 Ml Drops, 1 DROP OU QID PRN for DRY EYES, (Reported) Nitroglycerin (Nitrostat) 0.4 Mg Tab.subl, 0.4 MG SL NITRO PRN for CHEST PAIN, (Reported) Allergies Coded Allergies: No Known Allergies (Unverified , 07/27/18) CARLOS DE LEON DO Jan 10, 2021 15:37
[2021-01-10 20:00] VITALS: BP 139/56
[2021-01-10] MEDS: LIDOCAINE 5% (LIDODERM) PATCH TD SCH (21:00)
[2021-01-10] MEDS: MAGNESIUM OXIDE 400MG TAB (MAG-OX) PO SCH (21:30)
[2021-01-10] MEDS: traZODone 50 MG TAB PO SCH (21:30)
[2021-01-10] MEDS: POLYVINYL ALCOHOL OPHTH SOLN 15 ML(LIQUITEARS) OU PRN (21:32)
[2021-01-10] MEDS: LATANOPROST 0.005% OPHTH SOLN 2.5 ML OU SCH (21:32)
[2021-01-11] MEDS: HEPARIN SOD (PORCINE) 5000UNITS/ML 1ML VIAL/SYRINGE SC SCH ×2 (05:53→14:58)
[2021-01-11 06:41] VITALS: BP 116/81
[2021-01-11] MEDS: DICLOFENAC EPOLAMINE 1.3 % PATCH TOP SCH (08:41)
[2021-01-11] MEDS: OMEPRAZOLE 20 MG CAP PO SCH (08:42)
[2021-01-11] MEDS: DULoxetine 30MG CAPSULE (CYMBALTA) PO SCH (08:42)
[2021-01-11] MEDS: ASPIRIN 81MG ENTERIC TABLET PO SCH (08:42)
[2021-01-11] MEDS: predniSONE 10 MG TAB PO SCH (08:42)
[2021-01-11] MEDS: ROSUVASTATIN 10 MG TAB (CRESTOR) PO SCH (08:42)
[2021-01-11] MEDS: ACETAMINOPHEN 500 MG TAB PO PRN ×2 (08:43→14:57)
[2021-01-11 08:44] VITALS: BP 134/53
[2021-01-11] MEDS: METOPROLOL SUCC *XL* 25MG TAB (TopROL *XL*) PO SCH (08:44)
[2021-01-11] MEDS: **NOTE PATIENT COMMENT** MISC XX SCH (08:44)
== END 2021-01-11 15:30 | DRG 556 ==
LOC: M ED 16:49 → EDBD 16:49 → M ED INP 16:50 → M MS5PR 23:40 → OBSVTOIN 01-09 13:44
PROVIDERS: ADMIT Internal Medicine; ATTEND Internal Medicine
DX: M25.561 Pain in right knee (principal); I10 Essential (primary) hypertension; Z79.82 Long term (current) use of aspirin; Z79.899 Other long term (current) drug therapy; E78.5 Hyperlipidemia, unspecified; K21.9 Gastro-esophageal reflux disease without esophagitis; Z87.891 Personal history of nicotine dependence; H35.30 Unspecified macular degeneration; H40.9 Unspecified glaucoma; E66.9 Obesity, unspecified

== ENCOUNTER 2021-01-10 12:40 | Inpatient (IN) | payer MEDICARE, BC ==
[~2021-01-10] VITALS: Ht 162.6 cm; Wt 83.6 kg
[~2021-01-10 12:40] MED LIST changes: +ASPI-161 PO; +LISI20TA33 PO; +MAG-400T7 PO; +MAGN400T3 PO; +METO1TAB32 PO; +NITR0.4S14 SL; +NITR4TASL SL; +REFR0.5D8 OU; +XALA0.007 OU
[2021-01-11 15:40] VITALS: BP 142/73
[2021-01-11] MEDS ORDERED: MIRALAX *UNIT DOSE* 17GM PACKET PO PRN (16:35)
[2021-01-11] MEDS ORDERED: traMADol 50 MG TAB PO PRN (16:35)
[2021-01-11] MEDS ORDERED: OLANZapine 2.5MG TABLET PO PRN (16:35)
[2021-01-11] MEDS ORDERED: NITROGLYCERIN 0.4 MG SUBL TABLET SL PRN (16:35)
[2021-01-11 20:00] VITALS: BP 145/64
[2021-01-11] MEDS: LATANOPROST 0.005% OPHTH SOLN 2.5 ML OU SCH (20:07)
[2021-01-11] MEDS: POLYVINYL ALCOHOL OPHTH SOLN 15 ML(LIQUITEARS) OU SCH (20:07)
[2021-01-11] MEDS: DOCUSATE SODIUM 100MG CAPSULE PO SCH (20:08)
[2021-01-11] MEDS: ACETAMINOPHEN 500 MG TAB PO SCH (20:08)
[2021-01-11] MEDS: RAMELTEON 8 MG TAB (ROZEREM) PO SCH (20:08)
[2021-01-11] MEDS: HEPARIN SOD (PORCINE) 5000UNITS/ML 1ML VIAL/SYRINGE SC SCH (20:09)
[2021-01-11] MEDS: SENNA 8.6 MG TAB (SENOKOT) PO SCH (20:09)
[2021-01-11] MEDS: DICLOFENAC EPOLAMINE 1.3 % PATCH TOP SCH (20:09)
[2021-01-11] MEDS: REMEDY PHYTOPLEX Z-GUARD PASTE 113GM TUBE (FROM STOREROOM PRODUCT) TOP SCH (20:10)
[2021-01-11] MEDS ORDERED: MAGNESIUM OXIDE 400MG TAB (MAG-OX) PO SCH (21:00)
[2021-01-12 06:00] VITALS: BP 172/82
[2021-01-12 07:13] LABS: BASO # 0.1 10^3/uL (0.0-0.2); BASO % 0.8 % (0.0-1.0); EOS % 0.5 % (0.0-3.0); HEMATOCRIT 31.5 % (36.0-47.0); LYMPH # 1.7 10^3/uL (1.5-5.0); LYMPH % 21.6 % (24.0-44.0); MEAN CORPUSCULAR HEMOGLOBIN 30.8 pg (27.0-33.0); MEAN CORPUSCULAR HGB CONC 31.7 g/dl (32.0-36.5); MEAN CORPUSCULAR VOLUME 96.9 fl (80.0-96.0); MONO # 0.6 10^3/uL (0.0-0.8); NEUTROPHILS # 5.1 10^3/uL (1.5-8.5); PLATELET COUNT, AUTOMATED 250 10^3/uL (150-450); RED BLOOD COUNT 3.25 10^6/uL (4.00-5.40); WHITE BLOOD COUNT 7.9 10^3/uL (4.0-10.0)
[2021-01-12 07:35] LABS: ALBUMIN 3.5 GM/DL (3.2-5.2); BILIRUBIN,TOTAL 0.3 MG/DL (0.2-1.0); CALCIUM LEVEL 9.2 MG/DL (8.8-10.2); CREATININE FOR GFR 1.7 MG/DL (0.55-1.30); GLOMERULAR FILTRATION RATE 30.1 (>32); POTASSIUM SERUM 5.4 MEQ/L (3.5-5.1); TOTAL PROTEIN 6.8 GM/DL (6.4-8.2)
[2021-01-12] MEDS: DICLOFENAC EPOLAMINE 1.3 % PATCH TOP SCH ×2 (08:55→20:28)
[2021-01-12] MEDS: POLYVINYL ALCOHOL OPHTH SOLN 15 ML(LIQUITEARS) OU SCH ×3 (08:55→20:28)
[2021-01-12] MEDS: METOPROLOL SUCC *XL* 25MG TAB (TopROL *XL*) PO SCH (08:56)
[2021-01-12] MEDS: HEPARIN SOD (PORCINE) 5000UNITS/ML 1ML VIAL/SYRINGE SC SCH ×2 (08:56→20:27)
[2021-01-12] MEDS: ASPIRIN 81MG ENTERIC TABLET PO SCH (08:56)
[2021-01-12] MEDS: REMEDY PHYTOPLEX Z-GUARD PASTE 113GM TUBE (FROM STOREROOM PRODUCT) TOP SCH ×3 (08:57→20:31)
[2021-01-12] MEDS: OMEPRAZOLE 20 MG CAP PO SCH (08:57)
[2021-01-12] MEDS: ROSUVASTATIN 10 MG TAB (CRESTOR) PO SCH (08:57)
[2021-01-12] MEDS: ACETAMINOPHEN 500 MG TAB PO SCH ×3 (08:57→20:27)
[2021-01-12] MEDS: DOCUSATE SODIUM 100MG CAPSULE PO SCH (08:58)
[2021-01-12] MEDS ORDERED: predniSONE 10 MG TAB PO ONE (09:00)
--- NOTE | 2021-01-12 09:00 | HPEPDOC ---
Verifier Note DATE OF ADMISSION: 01-11-21 DATE OF SERVICE: 01-12-21 TIME OF ADMISSION: Please refer to physician's admission order. SOURCE OF ADMISSION INFORMATION: [facility] record and patient CHIEF COMPLAINT: right knee pain and inability to walk HISTORY OF PRESENT ILLNESS: 89F pmh HTN, HLD, chronic back pain, GERD, glaucoma presented to [facility] ED on 01-05-21 with right knee pain after having twisted it with difficulty walking. She also reported shortness of breath with exertion. Imaging of her knee revealed signs of suggestive of pseudogout showing, "Bicompartmental calcifications are noted consistent with either calcified meniscal degenerative changes or calcium pyrophosphate deposition disorder." She was started on a steroid taper for her condition and her hospital course was complicated by anemia, TAY on CKD, and episodes of delirium for which she was given antipsychotics. She had persistent mobility and ADL impairments and was deemed medically appropriate for discharge to ARU on 01-11-21. REVIEW OF SYSTEMS: The following is a completed review of systems and has been reviewed. Review of systems otherwise unremarkable. PAIN: Patient self reports right knee pain EYES: No recent vision changes EARS, NOSE, & THROAT: No throat pain, or dysphagia, or rhinorrhea CARDIOVASCULAR: Denies chest pain or palpitations PULMONARY: Denies shortness of breath GASTROINTESTINAL: Denies constipation/diarrhea GENITOURINARY: denies dysuria MUSCULOSKELETAL:right knee pain NEUROLOGICAL:denies paresthesias HEMATOLOGICAL: denies easy bruising SKIN: denies rash PSYCHIATRIC: Unremarkable All other review of systems found to be negative. PAST MEDICAL HISTORY: as per [facility] PAST SURGICAL HISTORY: appendectomy, hysterectomy, 3 back surgeries ALLERGIES: Please see below. MEDICATIONS: Please see below. SOCIAL HISTORY: former smoker, no etoh/illicit drugs DIET: low sodium PHYSICAL EXAMINATION: VITAL SIGNS: Please see below. GENERAL: Pleasant and cooperative. No acute distress. HEENT: PERRL. Extraocular movements intact. Clear conjunctiva CARDIOVASCULAR: Regular rate and rhythm. No murmurs, rubs, or gallops LUNGS: Clear to auscultation bilaterally. No wheezes. No rhonchi ABDOMEN: Soft, mildly-distended. Positive bowel sounds. NEUROLOGICAL: Alert and oriented times three. Cranial nerves II through XII grossly intact. Sensation grossly intact EXTREMITIES: 5\\5 strength bilateral upper extremities. 4+\\5 strength right lower extremity. 5/5 strength in left lower extremity. right knee- no notable effusion/warm, mild medial joint line pain, no varus/valgus instability LABORATORY DATA: Please see below. IMAGING: Imaging documentation personally reviewed by record FUNCTIONAL STATUS: Premorbid: Mod-Independent with all activities of daily life as well as mobility On Admission: Min-Max for bed mobility, functional transfers, dressing, ambulation GOALS: Mod-I for bed mobility, functional transfers, ambulation, dressing, toileting, bathing ASSESSMENT:89-year-old F with past medical history of HTN and chronic back pain who presents status post injury to right knee with pseudogout flare with inability to ambulate PLAN: 1. Rehab- PT/OT advance mobility and ADLs, strengthen/stretch/maintain ROM all 4 limbs 2. Neuro- recent episode of delirium cont to monitor, Zyprexa ordered prn 3. 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 CArdiac- hx of HTN cont BP meds -HLD- cont statin -recent ECHO showing grade 1 diastolic CHF- daily weights, fluid restrict -medicine consulted to assist in overall management 5. resp- monitor for infection 6. Renal- CKD with recent TAY monitor and consider renal consult 7. DVT ppx- heparin 8. GI ppx- prilosec 9. Pain cymbalta and oxycodone, flector patch and tylenol 10. Dispo- tbd POST ADMISSION PHYSICIAN EVALUATION: Medical and functional status: Description of medical status, medical assessment: As above. Rehabilitation diagnosis and current and prior cold morbid medical conditions as above. Risk of complications and plans to mitigate them as above. Description of functional status current status is as above. Prior status as above. Status compared to preadmission: There are no clinically significant differences between the patient's current status and the information described on the preadmission screening document. Treatment plan anticipated: Treatment plan is as described above. Required disciplines including physical therapy, occupational therapy, others as noted above. Intensity of services: 3 hours a day, 6 days a week. Special considerations: There are no specific special or safety considerations that would likely preclude immediate implementation of an intensive rehabilitation program or subsequently influence the plan of care. ATTESTATION: Considering all the information above, it is my best judgment that this patient requires intensive rehabilitation therapy as described above and an inpatient hospital environment due to the complexity of nursing, medical, and rehabilitation needs required by the patient. Furthermore, this patient can r easonably be expected to participate in an benefit from an inpatient rehabilitation stay with an interdisciplinary team approach to the delivery of rehabilitation care under the direction and supervision of rehabilitation physician. PROGNOSIS: good ESTIMATED LENGTH OF STAY:14-18 days. PROJECTED DISCHARGE DESTINATION: Home with family support and any durable medical equipment required to increase functional safety and mobility. TIME SPENT COUNSELING AND COORDINATING INITIAL CARE: Greater than 70 minutes. Vital Signs Vital Sign - Last 24 Hours 01/11/21 01/11/21 01/11/21 01/12/21 15:40 20:00 20:00 06:00 Temp 97.1 98.2 97.6 Pulse 68 67 60 Resp 18 20 20 17 B/P (MAP) 142/73 (96) 145/64 (91) 172/82 (112) Pulse Ox 99 98 98 O2 Delivery Room Air Room Air Room Air 01/12/21 08:56 Pulse 60 B/P (MAP) 172/82 Laboratory Data CBC/BMP Laboratory Tests 01/12/21 06:54 Labs 24H Laboratory Tests 2 01/12/21 06:54: Immature Granulocyte % (Auto) 4.1H, Neutrophils (%) (Auto) 65.0, Lymphocytes (%) (Auto) 21.6L, Monocytes (%) (Auto) 8.0, Eosinophils (%) (Auto) 0.5, Basophils (%) (Auto) 0.8, Neutrophils # (Auto) 5.1, Lymphocytes # (Auto) 1.7, Monocytes # (Auto) 0.6, Eosinophils # (Auto) 0.0, Basophils # (Auto) 0.1, Nucleated Red Blood Cells % (auto) 0.5H, Anion Gap 8, Glomerular Filtration Rate 30.1L, Calcium Level 9.2, Total Bilirubin 0.3, Aspartate Amino Transf (AST/SGOT) 29, Alanine Aminotransferase (ALT/SGPT) 57, Alkaline Phosphatase 72, Total Protein 6 .8, Albumin 3.5, Albumin/Globulin Ratio 1.1L Home Medications Scheduled Aspirin (Aspirin EC) 81 Mg Tablet.dr, 81 MG PO DAILY, (Reported) Duloxetine Hcl (Duloxetine HCl) 60 Mg Cap, 60 MG PO DAILY, (Reported) Latanoprost (Xalatan) 0.005% 2.5ML Drops, 1 DROP OU QHS, (Reported) Lisinopril (Lisinopril) 20 Mg Tablet, 20 MG PO DAILY, (Reported) Magnesium Oxide (Magnesium Oxide) 400 Mg Tablet, 800 MG PO QHS, (Reported) Metoprolol Succinate (Metoprolol Succinate) 25 Mg Tab.er.24h, 25 MG PO DAILY, (Reported) Omeprazole (Omeprazole) 20 Mg Cap, 20 MG PO DAILY, (Reported) Rosuvastatin Calcium (Rosuvastatin Calcium) 10 Mg Tablet, 10 MG PO DAILY, (Reported) Trazodone HCl (Trazodone HCl) 50 Mg Tab, 50 MG PO QHS, (Reported) Scheduled PRN Carboxymethylcellulose Sodium (Refresh Tears) 15 Ml Drops, 1 DROP OU QID PRN for DRY EYES, (Reported) Nitroglycerin (Nitrostat) 0.4 Mg Tab.subl, 0.4 MG SL NITRO PRN for CHEST PAIN, ( Reported) Allergies Coded Allergies: No Known Allergies (Unverified , 07/27/18) A-FIB/CHADSVASC A-FIB History Current/History of A-Fib/PAF?: No Current PO Anticoag Therapy: No ALIYAH WARREN MD Jan 12, 2021 09:00
[2021-01-12] MEDS ORDERED: PATIROMER SORBITEX CALCIUM 8.4 GM POWDER PACKET (VELTASSA) PO ONE (10:00)
[2021-01-12] MEDS: DULoxetine 30MG CAPSULE (CYMBALTA) PO SCH (10:26)
[2021-01-12] MEDS: oxyCODONE 5MG TAB PO PRN (12:43)
--- NOTE | 2021-01-12 13:55 | IPNPDOC ---
Text Note Date of Service The patient was seen on 01/12/21. NOTE Subjective: No any acute events overnight. No fever or chills. Patient cont inues to complains of right knee pain Objective: GENERAL APPEARANCE: NAD HEENT: no scleral icterus, no JVD, EOMI CARDIOVASCULAR: S1S2 LUNGS: CTA ABDOMEN: soft & not tender w palpation MUSCULOSKELETAL: no cyanosis, no swelling INTEGUMENT: no generalized pallor NEUROLOGICAL: cranial nerve function from 2-12 intact, follows commands, speech not dysarthric Assessment plan Patient is 89-year-old female with significant history of hypertension, hyperlipidemia, chronic low back pain, GERD, heart murmur and glaucoma was transferred to ARU for continuation of physical therapy Right knee pain Most likely arthritic pain Pain management PT/OT Follow-up with orthopedic surgeon and possible MRI in the outpatient settings We'll proceed with CT of the right knee Hypertension I added amlodipine 10 mg for better control of blood pressure Hyperlipidemia Continue statin Macular degeneration/glaucoma Patient reports that she typically has eyedrops at home Obesity BMI 31.9 Complicates care Hyperkalemia Kayexalate Chronic kidney disease stage III Continue to monitor creatinine Creatinine at baseline Deconditioning Continue PT/OT VS,Fishbone, I+O VS, Fishbone, I+O Laboratory Tests 01/12/21 06:54 Vital Signs Date Time Temp Pulse Resp B/P (MAP) Pulse Ox O2 Delivery O2 Flow Rate FiO2 01/12/21 12:43 17 01/12/21 08:56 60 172/82 01/12/21 06:00 97.6 98 Room Air I&O- Last 24 Hours up to 6 AM0 01/12/21 06:00 Intake Total 300 ml Balance 300 ml CARLOS DE LEON DO Jan 12, 2021 13:55
[2021-01-12 14:00] VITALS: BP 135/63
[2021-01-12] MEDS ORDERED: SOD POLYSTYRENE SULFONATE SUSP 15 GM/60 ML UD PO ONE (15:00)
--- NOTE | 2021-01-12 15:15 | REP ---
INDICATION: NO CONTRAST, ligaments torn,fracture. COMPARISON: None. TECHNIQUE: Standard helical technique using 3 x 3 mm increments and reconstructed in both sagittal and coronal planes FINDINGS: There are both medial and lateral compartmental calcifications. There is mild bicompartmental narrowing affecting the medial compartment to a greater degree than the lateral. Tiny subchondral cysts are seen in the proximal medial tibial metaphysis. The tiniest of marginal osteophytes are seen arising from the medial compartment. There is no evidence of an acute fracture, dislocation, or subluxation. There is no evidence of a gross joint effusion. IMPRESSION: 1. 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 The distinction can be made clinically. 2. Degenerative changes as described above. 3. CT cannot effectively evaluate the ligamentous structures or cartilaginous surfaces. Consider MRI if clinically relevant. <Electronically signed by Vickey Sanchez > 01/12/21 [id number]
[2021-01-12 19:51] LABS: CALCIUM LEVEL 8.9 MG/DL (8.8-10.2); CREATININE FOR GFR 1.95 MG/DL (0.55-1.30); GLOMERULAR FILTRATION RATE 25.7 (>32); POTASSIUM SERUM 5.8 MEQ/L (3.5-5.1)
[2021-01-12 20:00] VITALS: BP 152/67
[2021-01-12] MEDS: RAMELTEON 8 MG TAB (ROZEREM) PO SCH (20:27)
[2021-01-12] MEDS: LATANOPROST 0.005% OPHTH SOLN 2.5 ML OU SCH (20:30)
[2021-01-13] MEDS: SENNA 8.6 MG TAB (SENOKOT) PO SCH ×2 (01:42→21:52)
[2021-01-13] MEDS: DOCUSATE SODIUM 100MG CAPSULE PO SCH ×3 (01:43→21:53)
[2021-01-13 06:00] VITALS: BP 141/70
[2021-01-13 06:38] LABS: HEMOGLOBIN 10.4 g/dl (12.0-15.5); MEAN CORPUSCULAR HGB CONC 31.5 g/dl (32.0-36.5); MEAN CORPUSCULAR VOLUME 98.5 fl (80.0-96.0); PLATELET COUNT, AUTOMATED 323 10^3/uL (150-450); RED BLOOD COUNT 3.35 10^6/uL (4.00-5.40); WHITE BLOOD COUNT 12.2 10^3/uL (4.0-10.0)
[2021-01-13 07:09] LABS: CREATININE FOR GFR 1.74 MG/DL (0.55-1.30); GLOMERULAR FILTRATION RATE 29.3 (>32); POTASSIUM SERUM 4.9 MEQ/L (3.5-5.1)
[2021-01-13] MEDS: REMEDY PHYTOPLEX Z-GUARD PASTE 113GM TUBE (FROM STOREROOM PRODUCT) TOP SCH ×3 (09:00→21:55)
[2021-01-13] MEDS: ROSUVASTATIN 10 MG TAB (CRESTOR) PO SCH (10:13)
[2021-01-13] MEDS: DICLOFENAC EPOLAMINE 1.3 % PATCH TOP SCH ×2 (10:13→21:55)
[2021-01-13] MEDS: HEPARIN SOD (PORCINE) 5000UNITS/ML 1ML VIAL/SYRINGE SC SCH ×2 (10:13→21:54)
[2021-01-13] MEDS: OMEPRAZOLE 20 MG CAP PO SCH (10:13)
[2021-01-13] MEDS: ACETAMINOPHEN 500 MG TAB PO SCH ×3 (10:15→21:53)
[2021-01-13] MEDS: METOPROLOL SUCC *XL* 25MG TAB (TopROL *XL*) PO SCH (10:16)
[2021-01-13] MEDS: predniSONE 20 MG TAB PO SCH (10:17)
[2021-01-13] MEDS: DULoxetine 30MG CAPSULE (CYMBALTA) PO SCH (10:17)
[2021-01-13] MEDS: ASPIRIN 81MG ENTERIC TABLET PO SCH (10:17)
[2021-01-13] MEDS: POLYVINYL ALCOHOL OPHTH SOLN 15 ML(LIQUITEARS) OU SCH ×3 (10:19→21:54)
--- NOTE | 2021-01-13 13:34 | IPNPDOC ---
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 REVIEW OF SYSTEMS: The following is a completed review of systems and has been reviewed. Review of systems otherwise unremarkable. PAIN: Patient self reports right knee pain EYES: No recent vision changes EARS, NOSE, & THROAT: No throat pain, or dysphagia, or rhinorrhea CARDIOVASCULAR: Denies chest pain or palpitations PULMONARY: Denies shortness of breath, intermittent cough GASTROINTESTINAL: Denies constipation/diarrhea GENITOURINARY: denies dysuria MUSCULOSKELETAL:right knee pain NEUROLOGICAL:denies paresthesias HEMATOLOGICAL: denies easy bruising SKIN: denies rash PSYCHIATRIC: Unremarkable All other review of systems found to be negative. PHYSICAL EXAMINATION: VITAL SIGNS: Please see below. GENERAL: Pleasant and cooperative. No acute distress. HEENT: PERRL. Extraocular movements intact. Clear conjunctiva CARDIOVASCULAR: Regular rate and rhythm. No murmurs, rubs, or gallops LUNGS: Clear to auscultation bilaterally. No wheezes. No rhonchi ABDOMEN: Soft, mildly-distended. Positive bowel sounds. NEUROLOGICAL: Alert and oriented times three. Cranial nerves II through XII grossly intact. Sensation grossly intact EXTREMITIES: 5\5 strength bilateral upper extremities. 4+\5 strength right lower extremity. 5/5 strength in left lower extremity. right knee- no notable effusion/warm, mild medial joint line pain, no varus/valgus instability ASSESSMENT:89-year-old F with past medical history of HTN and chronic back pain who presents status post injury to right knee with pseudogout flare with inability to ambulate PLAN: 1. Rehab- PT/OT advance mobility and ADLs, strengthen/stretch/maintain ROM all 4 limbs- ambulating with RW 2. Neuro- recent episode of delirium cont to monitor, Zyprexa ordered prn 3. 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 CArdiac- hx of HTN cont BP meds -HLD- cont statin -recent ECHO showing grade 1 diastolic CHF- daily weights, fluid restrict -medicine consulted to assist in overall management 5. resp- monitor for infection -will start combivent for intermittent cough, low suspicion for PNA, leukocytosis likely due to steroid use 6. Renal- CKD with recent TAY monitor and consider renal consult 7. DVT ppx- heparin 8. GI ppx- prilosec 9. Pain cymbalta and oxycodone, flector patch and tylenol -bedsoe brace for knee stabilization 10. Leukocytosis- likely due to steroid use, patient afebrile, no dysuria 11. Dispo- tbd Allergies Coded Allergies: No Known Allergies (Unverified , 07/27/18) Vital Signs Vital Signs Date Time Temp Pulse Resp B/P (MAP) Pulse Ox O2 Delivery O2 Flow Rate FiO2 01/13/21 10:16 78 141/70 01/13/21 06:00 97.6 19 99 Room Air Laboratory Data CBC/BMP Laboratory Tests 01/12/21 18:23 01/13/21 06:00 Labs 24H Laboratory Tests 2 01/12/21 18:23: Anion Gap 5L, Glomerular Filtration Rate 25.7L, Calcium Level 8.9 01/13/21 06:00: Anion Gap 7L, Glomerular Filtration Rate 29.3L, Calcium Level 9.0, Nucleated Red Blood Cells % (auto) 0.4H Current Medications Current Medications Current Medications Medications (Trade) Dose Ordered Sig/Cornelio Route PRN Reason Start Time Stop Time Status Last Admin Dose Admin Acetaminophen (Tylenol Tab) 1,000 mg TID PO 01/11/21 21:00 01/13/21 10:15 Amlodipine Besylate (Norvasc) 10 mg DAILY PO 01/13/21 09:00 01/13/21 10:16 Artificial Tears (Akwa Tears) 2 drop TID OU 01/11/21 21:00 01/13/21 10:19 Aspirin (Ecotrin) 81 mg DAILY PO 01/12/21 09:00 01/13/21 10:17 Diclofenac Epolamine (Flector 1.3%) 1 patch Q12H TOP 01/11/21 21:00 01/12/21 20:28 Docusate Sodium (Colace) 100 mg BID PO 01/11/21 21:00 01/13/21 01:43 Duloxetine HCl (Cymbalta) 60 mg DAILY PO 01/12/21 09:00 01/13/21 10:17 Heparin Sodium (Porcine) (Heparin) 5,000 units Q12H SC 01/11/21 21:00 01/13/21 10:13 Latanoprost (Xalatan 0.005% Op Soln) 1 drop QHS OU 01/11/21 21:00 01/12/21 20:30 Magnesium Oxide (Mag-Ox) 800 mg QHS PO 01/11/21 21:00 01/12/21 14:00 DC 01/11/21 20:08 Metoprolol Succinate (TopROL XL) 25 mg DAILY PO 01/12/21 09:00 01/13/21 10:16 Nitroglycerin (Nitrostat (1/ 150)) 0.4 mg Q5MP PRN SL CHEST PAIN 01/11/21 16:35 Olanzapine (ZyPREXA) 2.5 mg BID PRN PO agitation 01/11/21 16:35 Omeprazole (PriLOSEC) 20 mg DAILY PO 01/12/21 09:00 01/13/21 10:13 Oxycodone HCl (Roxicodone, Oxyir) 5 mg Q4HP PRN PO MODERATE PAIN (PS 5-7) 01/12/21 11:25 01/12/21 12:43 Polyethylene Glycol (Miralax) 1 pkt DAILY PRN PO CONSTIPATION 01/11/21 16:35 Prednisone (Deltasone) 10 mg DAILY PO 01/20/21 09:00 01/26/21 09:01 Prednisone (Deltasone) 20 mg DAILY PO 01/13/21 09:00 01/19/21 09:01 01/13/21 10:17 Ramelteon (Rozerem) 8 mg QHS PO 01/11/21 21:00 01/12/21 20:27 Rosuvastatin Calcium (Crestor) 10 mg DAILY PO 01/12/21 09:00 01/13/21 10:13 Senna (Senokot) 1 tab QHS PO 01/11/21 21:00 Tramadol HCl (Ultram) 50 mg Q4HP PRN PO MODERATE PAIN (PS 5-7) 01/11/21 16:35 01/12/21 11:27 ALIYAH LONG MD Jan 13, 2021 13:34
[2021-01-13 14:00] VITALS: BP 133/65
[2021-01-13 20:00] VITALS: BP 131/63
[2021-01-13] MEDS: COMBIVENT RESPIMAT 100-20MCG INHALER 4GM INH SCH (21:07)
[2021-01-13] MEDS: RAMELTEON 8 MG TAB (ROZEREM) PO SCH (21:52)
[2021-01-13] MEDS: LATANOPROST 0.005% OPHTH SOLN 2.5 ML OU SCH (22:02)
[2021-01-14 05:42] VITALS: BP 163/75
[2021-01-14] MEDS: COMBIVENT RESPIMAT 100-20MCG INHALER 4GM INH SCH ×3 (07:11→18:11)
[2021-01-14] MEDS: DICLOFENAC EPOLAMINE 1.3 % PATCH TOP SCH ×2 (07:49→20:35)
[2021-01-14] MEDS: HEPARIN SOD (PORCINE) 5000UNITS/ML 1ML VIAL/SYRINGE SC SCH ×2 (07:50→20:38)
[2021-01-14] MEDS: ROSUVASTATIN 10 MG TAB (CRESTOR) PO SCH (07:50)
[2021-01-14] MEDS: DULoxetine 30MG CAPSULE (CYMBALTA) PO SCH (07:51)
[2021-01-14] MEDS: METOPROLOL SUCC *XL* 25MG TAB (TopROL *XL*) PO SCH (07:51)
[2021-01-14] MEDS: ASPIRIN 81MG ENTERIC TABLET PO SCH (07:52)
[2021-01-14] MEDS: ACETAMINOPHEN 500 MG TAB PO SCH ×3 (07:52→20:39)
[2021-01-14] MEDS: DOCUSATE SODIUM 100MG CAPSULE PO SCH ×2 (07:53→20:37)
[2021-01-14] MEDS: OMEPRAZOLE 20 MG CAP PO SCH (07:53)
[2021-01-14] MEDS: predniSONE 20 MG TAB PO SCH (07:53)
[2021-01-14] MEDS: POLYVINYL ALCOHOL OPHTH SOLN 15 ML(LIQUITEARS) OU SCH ×3 (07:59→20:40)
[2021-01-14] MEDS: REMEDY PHYTOPLEX Z-GUARD PASTE 113GM TUBE (FROM STOREROOM PRODUCT) TOP SCH ×3 (08:00→20:41)
[2021-01-14] MEDS: CALCIUM CARBONATE 500 MG CHEW U/D PO PRN (11:40)
[2021-01-14 14:00] VITALS: BP 125/68
[2021-01-14 20:00] VITALS: BP 137/63
[2021-01-14] MEDS: SENNA 8.6 MG TAB (SENOKOT) PO SCH (20:37)
[2021-01-14] MEDS: RAMELTEON 8 MG TAB (ROZEREM) PO SCH (20:37)
[2021-01-14] MEDS: LATANOPROST 0.005% OPHTH SOLN 2.5 ML OU SCH (20:40)
[2021-01-15 05:02] VITALS: BP 176/74
[2021-01-15] MEDS: COMBIVENT RESPIMAT 100-20MCG INHALER 4GM INH SCH ×3 (08:02→20:00)
[2021-01-15] MEDS: ROSUVASTATIN 10 MG TAB (CRESTOR) PO SCH (08:46)
[2021-01-15] MEDS: DOCUSATE SODIUM 100MG CAPSULE PO SCH ×3 (08:46→20:54)
[2021-01-15] MEDS: ASPIRIN 81MG ENTERIC TABLET PO SCH (08:46)
[2021-01-15] MEDS: DULoxetine 30MG CAPSULE (CYMBALTA) PO SCH (08:46)
[2021-01-15] MEDS: predniSONE 20 MG TAB PO SCH (08:46)
[2021-01-15] MEDS: HEPARIN SOD (PORCINE) 5000UNITS/ML 1ML VIAL/SYRINGE SC SCH ×2 (08:47→20:16)
[2021-01-15] MEDS: ACETAMINOPHEN 500 MG TAB PO SCH ×3 (08:49→20:17)
[2021-01-15] MEDS: METOPROLOL SUCC *XL* 25MG TAB (TopROL *XL*) PO SCH (08:50)
[2021-01-15] MEDS: OMEPRAZOLE 20 MG CAP PO SCH (08:50)
[2021-01-15] MEDS: DICLOFENAC EPOLAMINE 1.3 % PATCH TOP SCH ×2 (08:51→20:18)
[2021-01-15] MEDS: REMEDY PHYTOPLEX Z-GUARD PASTE 113GM TUBE (FROM STOREROOM PRODUCT) TOP SCH ×3 (08:52→20:18)
[2021-01-15] MEDS: POLYVINYL ALCOHOL OPHTH SOLN 15 ML(LIQUITEARS) OU SCH ×3 (09:01→20:19)
[2021-01-15 14:00] VITALS: BP 143/65
[2021-01-15 20:00] VITALS: BP 144/66
[2021-01-15] MEDS: RAMELTEON 8 MG TAB (ROZEREM) PO SCH (20:17)
[2021-01-15] MEDS: SENNA 8.6 MG TAB (SENOKOT) PO SCH ×2 (20:17→20:58)
[2021-01-15] MEDS: LATANOPROST 0.005% OPHTH SOLN 2.5 ML OU SCH (20:18)
[2021-01-16] MEDS: oxyCODONE 5MG TAB PO PRN ×2 (01:15→13:39)
[2021-01-16 06:00] VITALS: BP 164/71
[2021-01-16 06:06] LABS: BASO # 0.1 10^3/uL (0.0-0.2); BASO % 0.6 % (0.0-1.0); EOS # 0.1 10^3/uL (0.0-0.5); EOS % 0.5 % (0.0-3.0); HEMOGLOBIN 9.4 g/dl (12.0-15.5); LYMPH # 2.1 10^3/uL (1.5-5.0); LYMPH % 21.4 % (24.0-44.0); MEAN CORPUSCULAR HEMOGLOBIN 30.4 pg (27.0-33.0); MEAN CORPUSCULAR HGB CONC 31.3 g/dl (32.0-36.5); MEAN CORPUSCULAR VOLUME 97.1 fl (80.0-96.0); MONO # 0.7 10^3/uL (0.0-0.8); NEUTROPHILS # 6.4 10^3/uL (1.5-8.5); NEUTROPHILS % 66.5 % (36.0-66.0); PLATELET COUNT, AUTOMATED 251 10^3/uL (150-450); RED BLOOD COUNT 3.09 10^6/uL (4.00-5.40); WHITE BLOOD COUNT 9.6 10^3/uL (4.0-10.0)
[2021-01-16 06:27] LABS: CALCIUM LEVEL 8.9 MG/DL (8.8-10.2); CREATININE FOR GFR 1.81 MG/DL (0.55-1.30)
[2021-01-16] MEDS: COMBIVENT RESPIMAT 100-20MCG INHALER 4GM INH SCH ×3 (07:32→17:44)
[2021-01-16] MEDS: predniSONE 20 MG TAB PO SCH (09:35)
[2021-01-16] MEDS: OMEPRAZOLE 20 MG CAP PO SCH (09:35)
[2021-01-16] MEDS: ACETAMINOPHEN 500 MG TAB PO SCH ×3 (09:35→20:56)
[2021-01-16] MEDS: DOCUSATE SODIUM 100MG CAPSULE PO SCH ×2 (09:35→20:55)
[2021-01-16] MEDS: ASPIRIN 81MG ENTERIC TABLET PO SCH (09:35)
[2021-01-16] MEDS: DULoxetine 30MG CAPSULE (CYMBALTA) PO SCH (09:35)
[2021-01-16] MEDS: ROSUVASTATIN 10 MG TAB (CRESTOR) PO SCH (09:35)
[2021-01-16] MEDS: POLYVINYL ALCOHOL OPHTH SOLN 15 ML(LIQUITEARS) OU SCH ×3 (09:36→20:56)
[2021-01-16] MEDS: HEPARIN SOD (PORCINE) 5000UNITS/ML 1ML VIAL/SYRINGE SC SCH ×2 (09:36→20:55)
[2021-01-16] MEDS: METOPROLOL SUCC *XL* 25MG TAB (TopROL *XL*) PO SCH (09:36)
[2021-01-16] MEDS: DICLOFENAC EPOLAMINE 1.3 % PATCH TOP SCH ×2 (09:36→20:56)
[2021-01-16] MEDS: REMEDY PHYTOPLEX Z-GUARD PASTE 113GM TUBE (FROM STOREROOM PRODUCT) TOP SCH ×3 (09:37→20:57)
--- NOTE | 2021-01-16 10:57 | IPNPDOC ---
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 She agreed to participate in 3 hours of therapy tomorrow. REVIEW OF SYSTEMS: The following is a completed review of systems and has been reviewed. Review of systems otherwise unremarkable. PAIN: Patient self reports right knee pain EYES: No recent vision changes EARS, NOSE, & THROAT: No throat pain, or dysphagia, or rhinorrhea CARDIOVASCULAR: Denies chest pain or palpitations PULMONARY: Denies shortness of breath, intermittent cough GASTROINTESTINAL: Denies constipation/diarrhea GENITOURINARY: denies dysuria MUSCULOSKELETAL:right knee pain NEUROLOGICAL:denies paresthesias HEMATOLOGICAL: denies easy bruising SKIN: denies rash PSYCHIATRIC: Unremarkable All other review of systems found to be negative. PHYSICAL EXAMINATION: VITAL SIGNS: Please see below. GENERAL: Pleasant and cooperative. No acute distress. HEENT: PERRL. Extraocular movements intact. Clear conjunctiva CARDIOVASCULAR: Regular rate and rhythm. No murmurs, rubs, or gallops LUNGS: Clear to auscultation bilaterally. No wheezes. No rhonchi ABDOMEN: Soft, mildly-distended. Positive bowel sounds. NEUROLOGICAL: Alert and oriented times three. Cranial nerves II through XII grossly intact. Sensation grossly intact EXTREMITIES: 5\5 strength bilateral upper extremities. 4+\5 strength right lower extremity. 5/5 strength in left lower extremity. right knee- no notable effusion/warm, mild medial joint line pain, no varus/valgus instability ASSESSMENT:89-year-old F with past medical history of HTN and chronic back pain who presents status post injury to right knee with pseudogout flare with inability to ambulate PLAN: 1. Rehab- PT/OT advance mobility and ADLs, strengthen/stretch/maintain ROM all 4 limbs- ambulating with RW 2. Neuro- recent episode of delirium cont to monitor, Zyprexa ordered prn 3. Ortho- right knee pseudo gout with inability to walk on steroid taper cont pain management -bedsoe brace for knee instability 4. CArdiac- hx of HTN cont BP meds -HLD- cont statin -recent ECHO showing grade 1 diastolic CHF- daily weights, fluid restrict -medicine consulted to assist in overall management 5. resp- monitor for infection -cont combivent for intermittent cough, low suspicion for PNA, leukocytosis likely due to steroid use 6. Renal- CKD with recent TAY monitor and consider renal consult 7. DVT ppx- heparin 8. GI ppx- prilosec 9. Pain cymbalta and oxycodone, flector patch and tylenol -bedsoe brace for knee stabilization 10. Leukocytosis- likely due to steroid use, patient afebrile, no dysuria 11. Dispo- tbd Allergies Coded Allergies: No Known Allergies (Unverified , 07/27/18) Vital Signs Vital Signs Date Time Temp Pulse Resp B/P (MAP) Pulse Ox O2 Delivery O2 Flow Rate FiO2 01/16/21 09:36 62 164/71 01/16/21 06:00 97.6 20 97 Room Air Laboratory Data CBC/BMP Laboratory Tests 01/16/21 05:29 Labs 24H Laboratory Tests 2 01/16/21 05:29: Immature Granulocyte % (Auto) 4.0H, Neutrophils (%) (Auto) 66.5H, Lymphocytes (%) (Auto) 21.4L, Monocytes (%) (Auto) 7.0, Eosinophils (%) (Auto) 0.5, Ba sophils (%) (Auto) 0.6, Neutrophils # (Auto) 6.4, Lymphocytes # (Auto) 2.1, Monocytes # (Auto) 0.7, Eosinophils # (Auto) 0.1, Basophils # (Auto) 0.1, Nucleated Red Blood Cells % (auto) 0.3H, Anion Gap 10, Glomerular Filtration Rate 28.0L, Calcium Level 8.9 Current Medications Current Medications Current Medications Medications (Trade) Dose Ordered Sig/Cornelio Route PRN Reason Start Time Stop Time Status Last Admin Dose Admin Acetaminophen (Tylenol Tab) 1,000 mg TID PO 01/11/21 21:00 01/16/21 09:35 Albuterol/ Ipratropium (Combivent Respimat 100-20mcg) 1 puff RTID INH 01/13/21 20:00 01/16/21 07:32 Amlodipine Besylate (Norvasc) 10 mg DAILY PO 01/13/21 09:00 01/16/21 09:35 Artificial Tears (Akwa Tears) 2 drop TID OU 01/11/21 21:00 01/16/21 09:36 Aspirin (Ecotrin) 81 mg DAILY PO 01/12/21 09:00 01/16/21 09:35 Calcium Carbonate (Tums) 500 mg BID PRN PO INDIGESTION 01/14/21 11:15 01/14/21 11:40 Diclofenac Epolamine (Flector 1.3%) 1 patch Q12H TOP 01/11/21 21:00 01/16/21 09:36 Docusate Sodium (Colace) 100 mg BID PO 01/11/21 21:00 01/16/21 09:35 Duloxetine HCl (Cymbalta) 60 mg DAILY PO 01/12/21 09:00 01/16/21 09:35 Heparin Sodium (Porcine) (Heparin) 5,000 units Q12H SC 01/11/21 21:00 01/16/21 09:36 Latanoprost (Xalatan 0.005% Op Soln) 1 drop QHS OU 01/11/21 21:00 01/15/21 20:18 Magnesium Oxide (Mag-Ox) 800 mg QHS PO 01/11/21 21:00 01/12/21 14:00 DC 01/11/21 20:08 Metoprolol Succinate (TopROL XL) 25 mg DAILY PO 01/12/21 09:00 01/16/21 09:36 Nitroglycerin (Nitrostat (1/ 150)) 0.4 mg Q5MP PRN SL CHEST PAIN 01/11/21 16:35 Olanzapine (ZyPREXA) 2.5 mg BID PRN PO agitation 01/11/21 16:35 Omeprazole (PriLOSEC) 20 mg DAILY PO 01/12/21 09:00 01/16/21 09:35 Oxycodone HCl (Roxicodone, Oxyir) 5 mg Q4HP PRN PO MODERATE PAIN (PS 5-7) 01/12/21 11:25 01/16/21 01:15 Polyethylene Glycol (Miralax) 1 pkt DAILY PRN PO CONSTIPATION 01/11/21 16:35 Prednisone (Deltasone) 10 mg DAILY PO 01/20/21 09:00 01/26/21 09:01 Prednisone (Deltasone) 20 mg DAILY PO 01/13/21 09:00 01/19/21 09:01 01/16/21 09:35 Ramelteon (Rozerem) 8 mg QHS PO 01/11/21 21:00 01/15/21 20:17 Rosuvastatin Calcium (Crestor) 10 mg DAILY PO 01/12/21 09:00 01/16/21 09:35 Senna (Senokot) 1 tab QHS PO 01/11/21 21:00 01/14/21 20:37 Tramadol HCl (Ultram) 50 mg Q4HP PRN PO MODERATE PAIN (PS 5-7) 01/11/21 16:35 01/12/21 11:27 ALIYAH LONG MD Jan 16, 2021 10:57
[2021-01-16] MEDS: CALCIUM CARBONATE 500 MG CHEW U/D PO PRN (12:12)
[2021-01-16 14:00] VITALS: BP 130/64
[2021-01-16 20:00] VITALS: BP 140/64
[2021-01-16] MEDS: RAMELTEON 8 MG TAB (ROZEREM) PO SCH (20:55)
[2021-01-16] MEDS: SENNA 8.6 MG TAB (SENOKOT) PO SCH (20:55)
[2021-01-16] MEDS: LATANOPROST 0.005% OPHTH SOLN 2.5 ML OU SCH (20:56)
[2021-01-17] MEDS: METOPROLOL SUCC *XL* 25MG TAB (TopROL *XL*) PO SCH (05:59)
[2021-01-17 06:00] VITALS: BP 172/74
[2021-01-17] MEDS: COMBIVENT RESPIMAT 100-20MCG INHALER 4GM INH SCH ×3 (07:58→20:00)
[2021-01-17] MEDS: OMEPRAZOLE 20 MG CAP PO SCH (08:49)
[2021-01-17] MEDS: DOCUSATE SODIUM 100MG CAPSULE PO SCH ×3 (08:49→21:28)
[2021-01-17] MEDS: DICLOFENAC EPOLAMINE 1.3 % PATCH TOP SCH ×2 (08:49→21:32)
[2021-01-17] MEDS: HEPARIN SOD (PORCINE) 5000UNITS/ML 1ML VIAL/SYRINGE SC SCH ×2 (08:49→21:30)
[2021-01-17] MEDS: POLYVINYL ALCOHOL OPHTH SOLN 15 ML(LIQUITEARS) OU SCH ×3 (08:50→21:31)
[2021-01-17] MEDS: ACETAMINOPHEN 500 MG TAB PO SCH ×3 (08:50→21:29)
[2021-01-17] MEDS: DULoxetine 30MG CAPSULE (CYMBALTA) PO SCH (08:50)
[2021-01-17] MEDS: predniSONE 20 MG TAB PO SCH (08:50)
[2021-01-17] MEDS: ROSUVASTATIN 10 MG TAB (CRESTOR) PO SCH (08:50)
[2021-01-17] MEDS: ASPIRIN 81MG ENTERIC TABLET PO SCH (08:50)
[2021-01-17] MEDS: REMEDY PHYTOPLEX Z-GUARD PASTE 113GM TUBE (FROM STOREROOM PRODUCT) TOP SCH ×3 (08:51→21:00)
--- NOTE | 2021-01-17 10:54 | IPNPDOC ---
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 She understands she will need to be able to walk short distances in spite of having a bad heart and that if she does not walk at all her heart will only get weaker. She expressed understanding. REVIEW OF SYSTEMS: The following is a completed review of systems and has been reviewed. Review of systems otherwise unremarkable. PAIN: Patient self reports right knee pain EYES: No recent vision changes EARS, NOSE, & THROAT: No throat pain, or dysphagia, or rhinorrhea CARDIOVASCULAR: Denies chest pain or palpitations PULMONARY: Denies shortness of breath, intermittent cough GASTROINTESTINAL: Denies constipation/diarrhea GENITOURINARY: denies dysuria MUSCULOSKELETAL:right knee pain NEUROLOGICAL:denies paresthesias HEMATOLOGICAL: denies easy bruising SKIN: denies rash PSYCHIATRIC: Unremarkable All other review of systems found to be negative. PHYSICAL EXAMINATION: VITAL SIGNS: Please see below. GENERAL: Pleasant and cooperative. No acute distress. HEENT: PERRL. Extraocular movements intact. Clear conjunctiva CARDIOVASCULAR: Regular rate and rhythm. No murmurs, rubs, or gallops LUNGS: Clear to auscultation bilaterally. No wheezes. No rhonchi ABDOMEN: Soft, mildly-distended. Positive bowel sounds. NEUROLOGICAL: Alert and oriented times three. Cranial nerves II through XII grossly intact. Sensation grossly intact EXTREMITIES: 5\5 strength bilateral upper extremities. 4+\5 strength right lower extremity. 5/5 strength in left lower extremity. right knee- no notable effusion/warm, mild medial joint line pain, no varus/valgus instability ASSESSMENT:89-year-old F with past medical history of HTN and chronic back pain who presents status post injury to right knee with pseudogout flare with inability to ambulate PLAN: 1. Rehab- PT/OT advance mobility and ADLs, strengthen/stretch/maintain ROM all 4 limbs- ambulating with RW 2. Neuro- recent episode of delirium cont to monitor, Zyprexa ordered prn 3. 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 CArdiac- hx of HTN cont BP meds -HLD- cont statin -recent ECHO showing grade 1 diastolic CHF- daily weights, fluid restrict -medicine consulted to assist in overall management 5. resp- monitor for infection -cont combivent for intermittent cough, low suspicion for PNA, leukocytosis likely due to steroid use 6. Renal- CKD with recent TAY monitor and consider renal consult 7. DVT ppx- heparin 8. GI ppx- prilosec 9. Pain cymbalta and oxycodone, flector patch and tylenol -bedsoe brace for knee stabilization 10. Leukocytosis- likely due to steroid use, patient afebrile, no dysuria 11. Dispo- tbd Allergies Coded Allergies: No Known Allergies (Unverified , 07/27/18) Vital Signs Vital Signs Date Time Temp Pulse Resp B/P (MAP) Pulse Ox O2 Delivery O2 Flow Rate FiO2 01/17/21 06:00 98.5 61 19 172/74 (106) 98 Room Air Current Medications Current Medications Current Medications Medications (Trade) Dose Ordered Sig/Cornelio Route PRN Reason Start Time Stop Time Status Last Admin Dose Admin Acetaminophen (Tylenol Tab) 1,000 mg TID PO 01/11/21 21:00 01/17/21 08:50 Albuterol/ Ipratropium (Combivent Respimat 100-20mcg) 1 puff RTID INH 01/13/21 20:00 01/17/21 07:58 Amlodipine Besylate (Norvasc) 10 mg DAILY PO 01/13/21 09:00 01/17/21 05:59 Artificial Tears (Akwa Tears) 2 drop TID OU 01/11/21 21:00 01/17/21 08:50 Aspirin (Ecotrin) 81 mg DAILY PO 01/12/21 09:00 01/17/21 08:50 Calcium Carbonate (Tums) 500 mg BID PRN PO INDIGESTION 01/14/21 11:15 01/16/21 12:12 Diclofenac Epolamine (Flector 1.3%) 1 patch Q12H TOP 01/11/21 21:00 01/17/21 08:49 Docusate Sodium (Colace) 100 mg BID PO 01/11/21 21:00 01/17/21 08:49 Duloxetine HCl (Cymbalta) 60 mg DAILY PO 01/12/21 09:00 01/17/21 08:50 Heparin Sodium (Porcine) (Heparin) 5,000 units Q12H SC 01/11/21 21:00 01/17/21 08:49 Latanoprost (Xalatan 0.005% Op Soln) 1 drop QHS OU 01/11/21 21:00 01/16/21 20:56 Magnesium Oxide (Mag-Ox) 800 mg QHS PO 01/11/21 21:00 01/12/21 14:00 DC 01/11/21 20:08 Metoprolol Succinate (TopROL XL) 25 mg DAILY PO 01/12/21 09:00 01/17/21 05:59 Nitroglycerin (Nitrostat (1/ 150)) 0.4 mg Q5MP PRN SL CHEST PAIN 01/11/21 16:35 Olanzapine (ZyPREXA) 2.5 mg BID PRN PO agitation 01/11/21 16:35 Omeprazole (PriLOSEC) 20 mg DAILY PO 01/12/21 09:00 01/17/21 08:49 Oxycodone HCl (Roxicodone, Oxyir) 5 mg Q4HP PRN PO MODERATE PAIN (PS 5-7) 01/12/21 11:25 01/16/21 13:39 Polyethylene Glycol (Miralax) 1 pkt DAILY PRN PO CONSTIPATION 01/11/21 16:35 Prednisone (Deltasone) 10 mg DAILY PO 01/20/21 09:00 01/26/21 09:01 Prednisone (Deltasone) 20 mg DAILY PO 01/13/21 09:00 01/19/21 09:01 01/17/21 08:50 Ramelteon (Rozerem) 8 mg QHS PO 01/11/21 21:00 01/16/21 20:55 Rosuvastatin Calcium (Crestor) 10 mg DAILY PO 01/12/21 09:00 01/17/21 08:50 Senna (Senokot) 1 tab QHS PO 01/11/21 21:00 01/16/21 20:55 Tramadol HCl (Ultram) 50 mg Q4HP PRN PO MODERATE PAIN (PS 5-7) 01/11/21 16:35 01/12/21 11:27 ALIYAH LONG MD Jan 17, 2021 10:54
[2021-01-17] MEDS: oxyCODONE 5MG TAB PO PRN ×2 (11:10→21:29)
[2021-01-17 14:00] VITALS: BP 154/62
[2021-01-17] MEDS: CALCIUM CARBONATE 500 MG CHEW U/D PO PRN (15:31)
[2021-01-17 20:00] VITALS: BP 111/53
[2021-01-17] MEDS: SENNA 8.6 MG TAB (SENOKOT) PO SCH ×2 (21:00→21:28)
[2021-01-17] MEDS: RAMELTEON 8 MG TAB (ROZEREM) PO SCH (21:28)
[2021-01-17] MEDS: LATANOPROST 0.005% OPHTH SOLN 2.5 ML OU SCH (21:32)
[2021-01-18 06:00] VITALS: BP 166/84
[2021-01-18] MEDS: COMBIVENT RESPIMAT 100-20MCG INHALER 4GM INH SCH ×3 (07:32→20:29)
[2021-01-18] MEDS: DOCUSATE SODIUM 100MG CAPSULE PO SCH ×2 (09:00→22:01)
[2021-01-18] MEDS: REMEDY PHYTOPLEX Z-GUARD PASTE 113GM TUBE (FROM STOREROOM PRODUCT) TOP SCH ×3 (09:00→21:00)
[2021-01-18] MEDS: ACETAMINOPHEN 500 MG TAB PO SCH ×3 (09:08→22:03)
[2021-01-18] MEDS: DICLOFENAC EPOLAMINE 1.3 % PATCH TOP SCH (09:08)
[2021-01-18] MEDS: HEPARIN SOD (PORCINE) 5000UNITS/ML 1ML VIAL/SYRINGE SC SCH ×2 (09:08→22:03)
[2021-01-18] MEDS: OMEPRAZOLE 20 MG CAP PO SCH (09:09)
[2021-01-18] MEDS: ASPIRIN 81MG ENTERIC TABLET PO SCH (09:09)
[2021-01-18] MEDS: ROSUVASTATIN 10 MG TAB (CRESTOR) PO SCH (09:09)
[2021-01-18] MEDS: DULoxetine 30MG CAPSULE (CYMBALTA) PO SCH (09:09)
[2021-01-18] MEDS: predniSONE 20 MG TAB PO SCH (09:09)
[2021-01-18] MEDS: POLYVINYL ALCOHOL OPHTH SOLN 15 ML(LIQUITEARS) OU SCH ×3 (09:11→22:04)
[2021-01-18] MEDS: METOPROLOL SUCC *XL* 25MG TAB (TopROL *XL*) PO SCH (09:11)
--- NOTE | 2021-01-18 12:07 | IPNPDOC ---
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 She understands she will get IV fluids for her elevated potassium. REVIEW OF SYSTEMS: The following is a completed review of systems and has been reviewed. Review of systems otherwise unremarkable. PAIN: Patient self reports right knee pain EYES: No recent vision changes EARS, NOSE, & THROAT: No throat pain, or dysphagia, or rhinorrhea CARDIOVASCULAR: Denies chest pain or palpitations PULMONARY: Denies shortness of breath, intermittent cough GASTROINTESTINAL: Denies constipation/diarrhea GENITOURINARY: denies dysuria MUSCULOSKELETAL:right knee pain NEUROLOGICAL:denies paresthesias HEMATOLOGICAL: denies easy bruising SKIN: denies rash PSYCHIATRIC: Unremarkable All other review of systems found to be negative. PHYSICAL EXAMINATION: VITAL SIGNS: Please see below. GENERAL: Pleasant and cooperative. No acute distress. HEENT: PERRL. Extraocular movements intact. Clear conjunctiva CARDIOVASCULAR: Regular rate and rhythm. No murmurs, rubs, or gallops LUNGS: Clear to auscultation bilaterally. No wheezes. No rhonchi ABDOMEN: Soft, mildly-distended. Positive bowel sounds. NEUROLOGICAL: Alert and oriented times three. Cranial nerves II through XII grossly intact. Sensation grossly intact EXTREMITIES: 5\5 strength bilateral upper extremities. 4+\5 strength right lower extremity. 5/5 strength in left lower extremity. right knee- no notable effusion/warm, mild medial joint line pain, no varus/valgus instability ASSESSMENT:89-year-old F with past medical history of HTN and chronic back pain who presents status post injury to right knee with pseudogout flare with inability to ambulate PLAN: 1. Rehab- PT/OT advance mobility and ADLs, strengthen/stretch/maintain ROM all 4 limbs- ambulating with RW 2. Neuro- recent episode of delirium cont to monitor, Zyprexa ordered prn 3. 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 CArdiac- hx of HTN cont BP meds -HLD- cont statin -recent ECHO showing grade 1 diastolic CHF- daily weights, fluid restrict -medicine consulted to assist in overall management 5. resp- monitor for infection -cont combivent for intermittent cough which patient reporting has resolved, however given worsening leukocytosis will order CXR- patient on steroids 6. Renal- CKD with TAY and hyperkalemia, will give 1L NS, Veltassa, and obtain renal consult-patient denies chest pain or palpitations 7. DVT ppx- heparin 8. GI ppx- prilosec 9. Pain cymbalta and oxycodone, flector patch (d/c'd due to worsening kidney function) and tylenol -bedsoe brace for knee stabilization 10. Leukocytosis- likely due to steroid use, patient afebrile, no dysuria 11. Dispo- tbd Allergies Coded Allergies: No Known Allergies (Unverified , 07/27/18) Vital Signs Vital Signs Date Time Temp Pulse Resp B/P (MAP) Pulse Ox O2 Delivery O2 Flow Rate FiO2 01/18/21 09:11 61 153/61 01/18/21 06:00 97.6 18 97 Room Air Current Medications Current Medications Current Medications Medications (Trade) Dose Ordered Sig/Cornelio Route PRN Reason Start Time Stop Time Status Last Admin Dose Admin Acetaminophen (Tylenol Tab) 1,000 mg TID PO 01/11/21 21:00 01/18/21 09:08 Albuterol/ Ipratropium (Combivent Respimat 100-20mcg) 1 puff RTID INH 01/13/21 20:00 01/18/21 07:32 Amlodipine Besylate (Norvasc) 10 mg DAILY PO 01/13/21 09:00 01/18/21 09:11 Artificial Tears (Akwa Tears) 2 drop TID OU 01/11/21 21:00 01/18/21 09:11 Aspirin (Ecotrin) 81 mg DAILY PO 01/12/21 09:00 01/18/21 09:09 Calcium Carbonate (Tums) 500 mg BID PRN PO INDIGESTION 01/14/21 11:15 01/17/21 15:31 Diclofenac Epolamine (Flector 1.3%) 1 patch Q12H TOP 01/11/21 21:00 01/18/21 09:08 Docusate Sodium (Colace) 100 mg BID PO 01/11/21 21:00 01/17/21 08:49 Duloxetine HCl (Cymbalta) 60 mg DAILY PO 01/12/21 09:00 01/18/21 09:09 Heparin Sodium (Porcine) (Heparin) 5,000 units Q12H SC 01/11/21 21:00 01/18/21 09:08 Latanoprost (Xalatan 0.005% Op Soln) 1 drop QHS OU 01/11/21 21:00 01/17/21 21:32 Magnesium Oxide (Mag-Ox) 800 mg QHS PO 01/11/21 21:00 01/12/21 14:00 DC 01/11/21 20:08 Metoprolol Succinate (TopROL XL) 25 mg DAILY PO 01/12/21 09:00 01/18/21 09:11 Nitroglycerin (Nitrostat (1/ 150)) 0.4 mg Q5MP PRN SL CHEST PAIN 01/11/21 16:35 Olanzapine (ZyPREXA) 2.5 mg BID PRN PO agitation 01/11/21 16:35 Omeprazole (PriLOSEC) 20 mg DAILY PO 01/12/21 09:00 01/18/21 09:09 Oxycodone HCl (Roxicodone, Oxyir) 5 mg Q4HP PRN PO MODERATE PAIN (PS 5-7) 01/12/21 11:25 01/17/21 21:29 Polyethylene Glycol (Miralax) 1 pkt DAILY PRN PO CONSTIPATION 01/11/21 16:35 Prednisone (Deltasone) 10 mg DAILY PO 01/20/21 09:00 01/26/21 09:01 Prednisone (Deltasone) 20 mg DAILY PO 01/13/21 09:00 01/19/21 09:01 01/18/21 09:09 Ramelteon (Rozerem) 8 mg QHS PO 01/11/21 21:00 01/17/21 21:28 Rosuvastatin Calcium (Crestor) 10 mg DAILY PO 01/12/21 09:00 01/18/21 09:09 Senna (Senokot) 1 tab QHS PO 01/11/21 21:00 01/16/21 20:55 Tramadol HCl (Ultram) 50 mg Q4HP PRN PO MODERATE PAIN (PS 5-7) 01/11/21 16:35 01/12/21 11:27 ALIYAH LONG MD Jan 18, 2021 12:07
[2021-01-18 12:55] LABS: BASO # 0.1 10^3/uL (0.0-0.2); BASO % 0.5 % (0.0-1.0); EOS # 0.1 10^3/uL (0.0-0.5); EOS % 0.3 % (0.0-3.0); HEMATOCRIT 31.8 % (36.0-47.0); HEMOGLOBIN 10.1 g/dl (12.0-15.5); LYMPH # 1.5 10^3/uL (1.5-5.0); LYMPH % 10.4 % (24.0-44.0); MEAN CORPUSCULAR HEMOGLOBIN 31.8 pg (27.0-33.0); MEAN CORPUSCULAR HGB CONC 31.8 g/dl (32.0-36.5); MONO # 0.7 10^3/uL (0.0-0.8); MONO % 5.2 % (2.0-8.0); NEUTROPHILS # 11.5 10^3/uL (1.5-8.5); NEUTROPHILS % 80.2 % (36.0-66.0); PLATELET COUNT, AUTOMATED 317 10^3/uL (150-450); RED BLOOD COUNT 3.18 10^6/uL (4.00-5.40); WHITE BLOOD COUNT 14.3 10^3/uL (4.0-10.0)
[2021-01-18] MEDS ORDERED: NS 1,000 ML IV SCH (14:15)
[2021-01-18 14:16] LABS: CALCIUM LEVEL 9.2 MG/DL (8.8-10.2); CREATININE FOR GFR 1.85 MG/DL (0.55-1.30); GLOMERULAR FILTRATION RATE 27.3 (>32)
[2021-01-18 14:17] LABS: POTASSIUM SERUM 6.1 MEQ/L (3.5-5.1)
[2021-01-18] MEDS ORDERED: PATIROMER SORBITEX CALCIUM 8.4 GM POWDER PACKET (VELTASSA) PO ONE (15:00)
--- NOTE | 2021-01-18 16:18 | REP ---
INDICATION: r/o infiltrate COMPARISON: 01/05/2021 as well as other prior exams. TECHNIQUE: PA/Lateral FINDINGS: Lungs: Clear, no infiltrate. Heart: Normal in size. Mediastinum: Mediastinal silhouette unremarkable. Pleural angles: Unremarkable.. Bones and soft tissues: There are degenerative changes of the spine with old mild compression deformities of midthoracic vertebral bodies. Metallic rods and screws are seen in the lower thoracic spine. IMPRESSION: No acute pulmonary disease. <Electronically signed by Nasir Bernard > 01/18/21 2440
[2021-01-18 20:00] VITALS: BP 125/60
[2021-01-18] MEDS: SENNA 8.6 MG TAB (SENOKOT) PO SCH (22:01)
[2021-01-18] MEDS: RAMELTEON 8 MG TAB (ROZEREM) PO SCH (22:01)
[2021-01-18] MEDS: LATANOPROST 0.005% OPHTH SOLN 2.5 ML OU SCH (22:03)
[2021-01-18 22:44] LABS: CREATININE FOR GFR 1.95 MG/DL (0.55-1.30); GLOMERULAR FILTRATION RATE 25.7 (>32); POTASSIUM SERUM 5.8 MEQ/L (3.5-5.1)
[2021-01-19] MEDS ORDERED: SOD POLYSTYRENE SULFONATE SUSP 15 GM/60 ML UD PO ONE (00:45)
[2021-01-19 05:31] LABS: BASO % 0.4 % (0.0-1.0); EOS % 0.3 % (0.0-3.0); HEMATOCRIT 28.5 % (36.0-47.0); HEMOGLOBIN 9.1 g/dl (12.0-15.5); LYMPH # 2.1 10^3/uL (1.5-5.0); MEAN CORPUSCULAR HEMOGLOBIN 30.8 pg (27.0-33.0); MEAN CORPUSCULAR HGB CONC 31.9 g/dl (32.0-36.5); MEAN CORPUSCULAR VOLUME 96.6 fl (80.0-96.0); MONO # 0.7 10^3/uL (0.0-0.8); MONO % 6.4 % (2.0-8.0); NEUTROPHILS % 70.6 % (36.0-66.0); PLATELET COUNT, AUTOMATED 234 10^3/uL (150-450); RED BLOOD COUNT 2.95 10^6/uL (4.00-5.40); WHITE BLOOD COUNT 11.2 10^3/uL (4.0-10.0)
[2021-01-19 05:51] LABS: CALCIUM LEVEL 8.9 MG/DL (8.8-10.2); CREATININE FOR GFR 1.73 MG/DL (0.55-1.30); GLOMERULAR FILTRATION RATE 29.5 (>32); POTASSIUM SERUM 4.8 MEQ/L (3.5-5.1)
[2021-01-19] MEDS: COMBIVENT RESPIMAT 100-20MCG INHALER 4GM INH SCH ×3 (08:00→20:25)
[2021-01-19] MEDS: OMEPRAZOLE 20 MG CAP PO SCH (08:25)
[2021-01-19] MEDS: DULoxetine 30MG CAPSULE (CYMBALTA) PO SCH (08:25)
[2021-01-19] MEDS: ASPIRIN 81MG ENTERIC TABLET PO SCH (08:25)
[2021-01-19] MEDS: ROSUVASTATIN 10 MG TAB (CRESTOR) PO SCH (08:26)
[2021-01-19] MEDS: predniSONE 20 MG TAB PO SCH (08:27)
[2021-01-19] MEDS: oxyCODONE 5MG TAB PO PRN (08:27)
[2021-01-19] MEDS: METOPROLOL SUCC *XL* 25MG TAB (TopROL *XL*) PO SCH (08:27)
[2021-01-19] MEDS: ACETAMINOPHEN 500 MG TAB PO SCH ×3 (08:30→21:43)
[2021-01-19] MEDS: HEPARIN SOD (PORCINE) 5000UNITS/ML 1ML VIAL/SYRINGE SC SCH ×2 (08:30→21:41)
[2021-01-19] MEDS: DOCUSATE SODIUM 100MG CAPSULE PO SCH ×2 (09:00→21:43)
[2021-01-19] MEDS: REMEDY PHYTOPLEX Z-GUARD PASTE 113GM TUBE (FROM STOREROOM PRODUCT) TOP SCH ×3 (09:00→21:43)
--- NOTE | 2021-01-19 09:40 | IPNPDOC ---
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 REVIEW OF SYSTEMS: The following is a completed review of systems and has been reviewed. Review of systems otherwise unremarkable. PAIN: Patient self reports right knee pain EYES: No recent vision changes EARS, NOSE, & THROAT: No throat pain, or dysphagia, or rhinorrhea CARDIOVASCULAR: Denies chest pain or palpitations PULMONARY: Denies shortness of breath, intermittent cough (resolved) GASTROINTESTINAL: Denies constipation/diarrhea GENITOURINARY: denies dysuria MUSCULOSKELETAL:right knee pain NEUROLOGICAL:denies paresthesias HEMATOLOGICAL: denies easy bruising SKIN: denies rash PSYCHIATRIC: Unremarkable All other review of systems found to be negative. PHYSICAL EXAMINATION: VITAL SIGNS: Please see below. GENERAL: Pleasant and cooperative. No acute distress. HEENT: PERRL. Extraocular movements intact. Clear conjunctiva CARDIOVASCULAR: Regular rate and rhythm. No murmurs, rubs, or gallops LUNGS: Clear to auscultation bilaterally. No wheezes. No rhonchi ABDOMEN: Soft, mildly-distended. Positive bowel sounds. NEUROLOGICAL: Alert and oriented times three. Cranial nerves II through XII grossly intact. Sensation grossly intact EXTREMITIES: 5\5 strength bilateral upper extremities. 4+\5 strength right lower extremity. 5/5 strength in left lower extremity. right knee- no notable effusion/warm, mild medial joint line pain, no varus/valgus instability ASSESSMENT:89-year-old F with past medical history of HTN and chronic back pain who presents status post injury to right knee with pseudogout flare with inabili ty to ambulate PLAN: 1. Rehab- PT/OT advance mobility and ADLs, strengthen/stretch/maintain ROM all 4 limbs- ambulating with RW 2. Neuro- recent episode of delirium cont to monitor, Zyprexa ordered prn 3. 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 CArdiac- hx of HTN cont BP meds -HLD- cont statin -recent ECHO showing grade 1 diastolic CHF- daily weights, fluid restrict -medicine consulted to assist in overall management 5. resp- monitor for infection -cont combivent for intermittent cough which patient reporting has resolved, CXR 9-22-21 negative for infiltrate- patient on steroids 6. Renal- CKD with TAY and hyperkalemia that has improved following IVF& Veltassa- renal consulted-patient denies chest pain or palpitations 7. DVT ppx- heparin 8. GI ppx- prilosec 9. Pain cymbalta and oxycodone, flector patch (d/c'd due to worsening kidney function) and tylenol -bedsoe brace for knee stabilization 10. Leukocytosis- likely due to steroid use, patient afebrile, no dysuria 11. Dispo- tbd Allergies Coded Allergies: No Known Allergies (Unverified , 07/27/18) Vital Signs Vital Signs Date Time Temp Pulse Resp B/P (MAP) Pulse Ox O2 Delivery O2 Flow Rate FiO2 01/19/21 08:27 20 Room Air 01/19/21 08:27 70 153/61 01/18/21 20:00 98.3 96 Laboratory Data CBC/BMP Laboratory Tests 01/18/21 12:21 01/18/21 22:11 01/19/21 05:15 Labs 24H Laboratory Tests 2 01/18/21 12:21: Immature Granulocyte % (Auto) 3.4H, Neutrophils (%) (Auto) 80.2H, Lymphocytes (%) (Auto) 10.4L, Monocytes (%) (Auto) 5.2, Eosinophils (%) (Auto) 0.3, Basophils (%) (Auto) 0.5, Neutrophils # (Auto) 11.5H, Lymphocytes # (Auto) 1.5, Monocytes # (Auto) 0.7, Eosinophils # (Auto) 0.1, Basophils # (Auto) 0.1, Nucleated Red Blood Cells % (auto) 0.1H, Anion Gap 6L, Glomerular Filtration Rate 27.3L, Calcium Level 9.2 01/18/21 22:11: Anion Gap 8, Glomerular Filtration Rate 25.7L, Calcium Level 9.0 01/19/21 05:15: Immature Granulocyte % (Auto) 3.3H, Neutrophils (%) (Auto) 70.6H, Lymphocytes (%) (Auto) 19.0L, Monocytes (%) (Auto) 6.4, Eosinophils (%) (Auto) 0.3, Basophils (%) (Auto) 0.4, Neutrophils # (Auto) 8.0, Lymphocytes # (Auto) 2.1, Monocytes # (Auto) 0.7, Eosinophils # (Auto) 0.0, Basophils # (Auto) 0.0, Nucleated Red Blood Cells % (auto) 0.0, Anion Gap 7L, Glomerular Filtration Rate 29.5L, Calcium Level 8.9 Current Medications Current Medications Current Medications Medications (Trade) Dose Ordered Sig/Cornelio Route PRN Reason Start Time Stop Time Status Last Admin Dose Admin Acetaminophen (Tylenol Tab) 1,000 mg TID PO 01/11/21 21:00 01/19/21 08:30 Albuterol/ Ipratropium (Combivent Respimat 100-20mcg) 1 puff RTID INH 01/13/21 20:00 01/18/21 20:29 Amlodipine Besylate (Norvasc) 10 mg DAILY PO 01/13/21 09:00 01/19/21 08:25 Artificial Tears (Akwa Tears) 2 drop TID OU 01/11/21 21:00 01/18/21 22:04 Aspirin (Ecotrin) 81 mg DAILY PO 01/12/21 09:00 01/19/21 08:25 Calcium Carbonate (Tums) 500 mg BID PRN PO INDIGESTION 01/14/21 11:15 01/17/21 15:31 Diclofenac Epolamine (Flector 1.3%) 1 patch Q12H TOP 01/11/21 21:00 01/18/21 14:55 DC 01/18/21 09:08 Docusate Sodium (Colace) 100 mg BID PO 01/11/21 21:00 01/18/21 22:01 Duloxetine HCl (Cymbalta) 60 mg DAILY PO 01/12/21 09:00 01/19/21 08:25 Heparin Sodium (Porcine) (Heparin) 5,000 units Q12H SC 01/11/21 21:00 01/19/21 08:30 Latanoprost (Xalatan 0.005% Op Soln) 1 drop QHS OU 01/11/21 21:00 01/18/21 22:03 Magnesium Oxide (Mag-Ox) 800 mg QHS PO 01/11/21 21:00 01/12/21 14:00 DC 01/11/21 20:08 Metoprolol Succinate (TopROL XL) 25 mg DAILY PO 01/12/21 09:00 01/19/21 08:27 Nitroglycerin (Nitrostat (1/ 150)) 0.4 mg Q5MP PRN SL CHEST PAIN 01/11/21 16:35 Olanzapine (ZyPREXA) 2.5 mg BID PRN PO agitation 01/11/21 16:35 Omeprazole (PriLOSEC) 20 mg DAILY PO 01/12/21 09:00 01/19/21 08:25 Oxycodone HCl (Roxicodone, Oxyir) 5 mg Q4HP PRN PO MODERATE PAIN (PS 5-7) 01/12/21 11:25 01/19/21 08:27 Polyethylene Glycol (Miralax) 1 pkt DAILY PRN PO CONSTIPATION 01/11/21 16:35 Prednisone (Deltasone) 10 mg DAILY PO 01/20/21 09:00 01/26/21 09:01 Prednisone (Deltasone) 20 mg DAILY PO 01/13/21 09:00 01/19/21 09:01 DC 01/19/21 08:27 Ramelteon (Rozerem) 8 mg QHS PO 01/11/21 21:00 01/18/21 22:01 Rosuvastatin Calcium (Crestor) 10 mg DAILY PO 01/12/21 09:00 01/19/21 08:26 Senna (Senokot) 1 tab QHS PO 01/11/21 21:00 01/18/21 22:01 Sodium Chloride 1,000 ml @ 60 mls/hr [id number] IV 01/18/21 14:15 01/19/21 06:54 DC 01/18/21 14:43 Tramadol HCl (Ultram) 50 mg Q4HP PRN PO MODERATE PAIN (PS 5-7) 01/11/21 16:35 01/12/21 11:27 ALIYAH LONG MD Jan 19, 2021 09:40
[2021-01-19] MEDS ORDERED: NS 0.45% 1,000 ML IV SCH (12:45)
[2021-01-19 12:50] LABS: PHOSPHORUS LEVEL 4.1 MG/DL (2.5-4.9); URIC ACID 7.6 MG/DL (2.6-6.0)
[2021-01-19 14:00] VITALS: BP 151/20
--- NOTE | 2021-01-19 16:31 | REP ---
INDICATION: Acute renal failure. COMPARISON: CT 07/27/2018. TECHNIQUE: Real-time sonographic evaluation of the kidneys is performed. FINDINGS: Right kidney measures 12.1 x 5.5 x 4.8 cm, with no hydronephrosis. There is a small extrarenal pelvis. A cyst in the upper pole of the right kidney measures 1.6 cm in diameter. The left kidney is atrophic with significant cortical thinning. Approximate measurements are 7.6 x 4.2 x 3.2 cm. There is increased echotexture diffusely. A central cystic structure measures 3.4 x 2.8 x 3.1 cm. No gross abnormality is seen of the urinary bladder, which measures 8.3 x 7.5 x 6.1 cm. After voiding there is no postvoid residual in the urinary bladder. IMPRESSION: No right hydronephrosis. Right renal cyst. Atrophic left kidney with significant cortical thinning and no definite hydronephrosis. Central left renal cyst 3.4 cm. <Electronically signed by Nasir Bernard > 01/19/21 1026
[2021-01-19] MEDS: POLYVINYL ALCOHOL OPHTH SOLN 15 ML(LIQUITEARS) OU SCH ×2 (17:46→21:00)
[2021-01-19 20:00] VITALS: BP 153/63
[2021-01-19] MEDS: LATANOPROST 0.005% OPHTH SOLN 2.5 ML OU SCH (21:42)
[2021-01-19] MEDS: SENNA 8.6 MG TAB (SENOKOT) PO SCH (21:43)
[2021-01-19] MEDS: RAMELTEON 8 MG TAB (ROZEREM) PO SCH (21:43)
[2021-01-20 06:00] VITALS: BP 147/66
[2021-01-20 07:51] LABS: BASO # 0.1 10^3/uL (0.0-0.2); BASO % 0.5 % (0.0-1.0); EOS # 0.1 10^3/uL (0.0-0.5); EOS % 0.5 % (0.0-3.0); HEMATOCRIT 32.3 % (36.0-47.0); LYMPH # 2.2 10^3/uL (1.5-5.0); LYMPH % 19.7 % (24.0-44.0); MEAN CORPUSCULAR HEMOGLOBIN 30.7 pg (27.0-33.0); MEAN CORPUSCULAR VOLUME 99.1 fl (80.0-96.0); MONO # 0.6 10^3/uL (0.0-0.8); MONO % 5.5 % (2.0-8.0); NEUTROPHILS # 7.8 10^3/uL (1.5-8.5); NEUTROPHILS % 70.5 % (36.0-66.0); PLATELET COUNT, AUTOMATED 294 10^3/uL (150-450); RED BLOOD COUNT 3.26 10^6/uL (4.00-5.40)
[2021-01-20] MEDS: COMBIVENT RESPIMAT 100-20MCG INHALER 4GM INH SCH ×3 (08:00→20:00)
[2021-01-20 08:10] LABS: CREATININE FOR GFR 1.69 MG/DL (0.55-1.30); GLOMERULAR FILTRATION RATE 30.3 (>32); POTASSIUM SERUM 4.8 MEQ/L (3.5-5.1)
[2021-01-20 08:14] LABS: PERCENT SATURATION 32.7 % (13.2-45.0)
[2021-01-20] MEDS: REMEDY PHYTOPLEX Z-GUARD PASTE 113GM TUBE (FROM STOREROOM PRODUCT) TOP SCH ×3 (09:00→20:39)
[2021-01-20] MEDS: POLYVINYL ALCOHOL OPHTH SOLN 15 ML(LIQUITEARS) OU SCH ×3 (09:00→20:38)
[2021-01-20] MEDS: DOCUSATE SODIUM 100MG CAPSULE PO SCH ×2 (09:00→20:38)
--- NOTE | 2021-01-20 09:24 | CR ---
CONSULTATION DATE: 01/19/2021 REQUESTING PHYSICIAN: CONSULTING PHYSICIAN: Danyell Brooks M.D. REASON FOR CONSULTATION: Management of acute renal failure and hyperkalemia. CHIEF COMPLAINT: The patient was admitted to the rehab unit on January 12 with right knee pain and inability to walk. HISTORY OF PRESENT ILLNESS: Arabella Salinas is an 89-year-old female with past medical history of chronic kidney disease, stage 3. She does not follow up in nephrology but reports that she is a patient of Dr. Kilgore as outpatient and she reported that her one kidney is functioning well and the other one is not functioning well and later on review of the images confirmed that she has atrophic left kidney. Looking at her creatinine for the last one month almost shows that her best baseline creatinine is around 1.4. She has been admitted at the rehab unit because of right knee pain after she twisted it. Her creatinine has been persistently elevated at around 1.7 to 1.8 and she is having recurrent episodes of hyperkalemia so nephrology service was called for further help in the management of this patient. Her potassium was 6.1 yesterday in the morning. I saw and evaluated the patient today morning at the bedside. She was able to provide me with a history and she is awake and alert. PAST MEDICAL HISTORY: 1. Chronic renal disease, stage 3. 2. Atrophic left kidney. Also renal imaging showed there are cysts in the right kidney. 3. History of chronic back pain. 4. Hypertension. 5. Hyperlipidemia. 6. Glaucoma. PAST SURGICAL HISTORY: 1. Appendectomy. 2. Hysterectomy. 3. Three back surgeries in the past. ALLERGIES: No known drug allergies. FAMILY HISTORY: No significant family history of end-stage renal disease requiring hemodialysis. SOCIAL HISTORY: The patient is a former smoker, denies any illicit drug abuse or alcohol abuse. REVIEW OF SYSTEMS: Constitutional: She denies any fevers or chills. Eyes: She denies any blurry vision, double vision. ENT: She denies any dysphagia, odynophagia. She does report a dry mouth. Cardiovascular: Denies any chest pain. Respiratory: Denies any shortness of breath. GI: Denies any nausea, vomiting. Genitourinary: Denies any dysphagia, hematuria. Musculoskeletal: Denies any muscle aches and pains apart from right knee pain. Hematological/Oncological: Denies any easy bleeding or bruising. FILM RENTAL CLERK: Denies any weakness or strokes. All other review of systems is negative. PHYSICAL EXAMINATION: GENERAL: The patient is awake, alert, oriented x3, lying in bed. Obese body habitus. VITAL SIGNS: Temperature is 98 degrees Fahrenheit, blood pressure 153/63, pulse is 74, respiratory rate of 17, saturating 98% on room air. HEAD AND NECK: Extraocular muscles are intact. Pupils are equally round and reactive to light. Mucous membranes are dry. Neck is supple. There is no JVD. CARDIOVASCULAR: S1, S2, regular rate. EXTREMITIES: No edema in the bilateral lower extremities. RESPIRATORY: Chest is clear to auscultation bilaterally. Bilateral equal air entry. No rales or rhonchi. ABDOMEN: Soft, positive bowel sounds. Old surgical scar in the suprapubic region. She has multiple ecchymosis after subcutaneous injections. She does have mild suprapubic discomfort as well. MUSCULOSKELETAL: Decreased range of movement of right knee. SKIN: No rashes or ulcers. PSYCH: Normal mood and affect. FILM RENTAL CLERK: No focal deficits. Power is 5/5 in all extremities. LAB REVIEW: CBC showed a WBC 11.2, hemoglobin 9.1, platelets 234. Urinalysis is not available. BMP showed sodium 140, potassium 4.8, chloride 112, bicarbonate 21, BUN 58, creatinine 1.7. It was 1.9 yesterday. Phosphorus 4.1. IMAGING: A renal ultrasound was done today which showed no right hydronephrosis. There were right renal cysts, atrophic left kidney with significant cortical thinning, no definite hydronephrosis. There is a left renal cyst which is 3.4 cm and there was no postvoid residual in the urinary bladder. CURRENT INPATIENT MEDICATIONS: The patient's medications were all reviewed by myself. She was given normal saline one liter yesterday. I have started the patient on 1/2 normal saline at 100 mL an hour for a total of one liter as well. She is on Tylenol three times a day, Combivent p.r.n., amlodipine 10 mg p.o. daily, aspirin 81 mg p.o. daily, TUMS 500 mg p.o. twice a day p.r.n., Colace 100 mg p.o. twice a day and Duloxetine 60 mg p.o. daily, heparin subcu q.12 hourly, metoprolol succinate 25 mg p.o. daily, omeprazole 20 mg p.o. daily, oxycodone 5 mg p.o. p.r.n. moderate pain, Miralax one packet p.o. daily p.r.n., prednisone 12 mg p.o. daily, Rozerem 8 mg p.o. q.h.s., rosuvastatin 10 mg p.o. daily, Senna one tablet p.o. q.h.s., Kayexalate 15 gm p.o. x one dose was given. ASSESSMENT AND PLAN: 1. Recurrent hyperkalemia. I do not see any clear etiology of hyperkalemia at this time except that patient had a diclofenac patch that was just stopped yesterday and she has had significant ecchymosis and small hematomas at the heparin injection sites that can cause hyperkalemia as well. I am stopping the subcu heparin at this time. The patient was already given Veltassa. Potassium level is improving with IV fluid hydration. 2. Acute kidney injury superimposed on chronic kidney disease. The patient's best baseline creatinine is 1.4 according to previous records. It was 1.9 yesterday. She was given IV fluid. Creatinine has improved to 1.7 and diclofenac has already been stopped. I do not see any other nephrotoxic medication at this time. Patient has solitary functioning right kidney with cysts and she has atrophic kidney on the left side. 3. Hypertension. Blood pressure is controlled with current dose of amlodipine 10 mg p.o. daily. Okay to continue current dose. Continue current dose of metoprolol XL 25 mg p.o. daily. 4. Anemia and chronic kidney disease. Hemoglobin level is 9.1 which is optimal for now. I will check the iron levels and if the iron levels are low, she will be given IV iron. Thank you for involving me in the care of this patient. I shall be happy to follow the patient along with you tomorrow morning.
[2021-01-20] MEDS: predniSONE 10 MG TAB PO SCH (09:47)
[2021-01-20] MEDS: ROSUVASTATIN 10 MG TAB (CRESTOR) PO SCH (09:47)
[2021-01-20] MEDS: ASPIRIN 81MG ENTERIC TABLET PO SCH (09:48)
[2021-01-20] MEDS: OMEPRAZOLE 20 MG CAP PO SCH (09:48)
[2021-01-20] MEDS: DULoxetine 30MG CAPSULE (CYMBALTA) PO SCH (09:48)
[2021-01-20] MEDS: METOPROLOL SUCC *XL* 25MG TAB (TopROL *XL*) PO SCH (09:48)
[2021-01-20] MEDS: ACETAMINOPHEN 500 MG TAB PO SCH ×3 (09:49→20:38)
--- NOTE | 2021-01-20 11:38 | IPNPDOC ---
PM&R Progress Note DATE OF SERVICE: Jan 20, 2021 Clinical Rehabilitation Liaison Progress Note Subjective: Patient seen resting comfortably in bed stating in the middle of the night she had left sided chest pain that lasted for 15 minutes that radiated to her ax illa. She said it resolved on its own and she did not notify nursing staff of this occurrence. She currently denies chest pain, trouble breathing. REVIEW OF SYSTEMS: The following is a completed review of systems and has been reviewed. Review of systems otherwise unremarkable. PAIN: Patient self reports right knee pain EYES: No recent vision changes EARS, NOSE, & THROAT: No throat pain, or dysphagia, or rhinorrhea CARDIOVASCULAR: Denies chest pain or palpitations PULMONARY: Denies shortness of breath, intermittent cough (resolved) GASTROINTESTINAL: Denies constipation/diarrhea GENITOURINARY: denies dysuria MUSCULOSKELETAL:right knee pain NEUROLOGICAL:denies paresthesias HEMATOLOGICAL: denies easy bruising SKIN: denies rash PSYCHIATRIC: Unremarkable All other review of systems found to be negative. PHYSICAL EXAMINATION: VITAL SIGNS: Please see below. GENERAL: Pleasant and cooperative. No acute distress. HEENT: PERRL. Extraocular movements intact. Clear conjunctiva CARDIOVASCULAR: Regular rate and rhythm.+systolic murmur, rubs, or gallops LUNGS: Clear to auscultation bilaterally. No wheezes. No rhonchi ABDOMEN: Soft, mildly-distended. Positive bowel sounds. NEUROLOGICAL: Alert and oriented times three. Cranial nerves II through XII grossly intact. Sensation grossly intact EXTREMITIES: 5\5 strength bilateral upper extremities. 4+\5 strength right lower extremity. 5/5 strength in left lower extremity. right knee- no notable effusion/warm, mild medial joint line pain, no varus/valgus instability ASSESSMENT:89-year-old F with past medical history of HTN and chronic back pain who presents status post injury to right knee with pseudogout flare with inability to ambulate PLAN: 1. Rehab- PT/OT advance mobility and ADLs, strengthen/stretch/maintain ROM all 4 limbs- ambulating with RW 2. Neuro- recent episode of delirium cont to monitor, Zyprexa ordered prn 3. 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 CArdiac- hx of HTN cont BP meds -HLD- cont statin -recent ECHO showing grade 1 diastolic CHF- daily weights, fluid restrict -episdoe of chest pain overnight-resolved on it own, CK/Trop ordered this am and are normal, EKG also showing no ST elevations, nitroglycerin ordered prn and patient instructed to notify staff if this should happen again -medicine consulted to assist in overall management 5. resp- monitor for infection -cont combivent for intermittent cough which patient reporting has resolved, CXR 01-18-21 negative for infiltrate- patient on steroids 6. Renal- CKD with TYA and hyperkalemia that has improved following IVF& Veltassa- renal consulted-patient denies chest pain or palpitations 7. DVT ppx- heparin 8. GI ppx- prilosec 9. Pain cymbalta and oxycodone, flector patch (d/c'd due to worsening kidney function) and tylenol -bedsoe brace for knee stabilization 10. Leukocytosis- likely due to steroid use, patient afebrile, no dysuria 11. Dispo- tbd Allergies Coded Allergies: No Known Allergies (Unverified , 07/27/18) Vital Signs Vital Signs Date Time Temp Pulse Resp B/P (MAP) Pulse Ox O2 Delivery O2 Flow Rate FiO2 01/20/21 09:47 64 147/66 01/20/21 06:00 98.8 18 99 Room Air Laboratory Data CBC/BMP Laboratory Tests 01/20/21 07:16 Labs 24H Laboratory Tests 2 01/20/21 07:08: 01/20/21 07:16: Immature Granulocyte % (Auto) 3.3H, Neutrophils (%) (Auto) 70.5H, Lymphocytes (%) (Auto) 19.7L, Monocytes (%) (Auto) 5.5, Eosinophils (%) (Auto) 0.5, Basophils (%) (Auto) 0.5, Neutrophils # (Auto) 7.8, Lymphocytes # (Auto) 2.2, Monocytes # (Auto) 0.6, Eosinophils # (Auto) 0.1, Basophils # (Auto) 0.1, Nucleated Red Blood Cells % (auto) 0.2H, Anion Gap 7L, Glomerular Filtration Rate 30.3L, Calcium Level 9.0, Iron Level 92, Total Iron Binding Capacity 281, Transferrin % Saturation 32.7, Ferritin 298H Current Medications Current Medications Current Medications Medications (Trade) Dose Ordered Sig/Cornelio Route PRN Reason Start Time Stop Time Status Last Admin Dose Admin Acetaminophen (Tylenol Tab) 1,000 mg TID PO 01/11/21 21:00 01/20/21 09:49 Albuterol/ Ipratropium (Combivent Respimat 100-20mcg) 1 puff RTID INH 01/13/21 20:00 01/19/21 20:25 Amlodipine Besylate (Norvasc) 10 mg DAILY PO 01/13/21 09:00 01/20/21 09:47 Artificial Tears (Akwa Tears) 2 drop TID OU 01/11/21 21:00 01/19/21 17:46 Aspirin (Ecotrin) 81 mg DAILY PO 01/12/21 09:00 01/20/21 09:48 Calcium Carbonate (Tums) 500 mg BID PRN PO INDIGESTION 01/14/21 11:15 01/17/21 15:31 Diclofenac Epolamine (Flector 1.3%) 1 patch Q12H TOP 01/11/21 21:00 01/18/21 14:55 DC 01/18/21 09:08 Docusate Sodium (Colace) 100 mg BID PO 01/11/21 21:00 01/19/21 21:43 Duloxetine HCl (Cymbalta) 60 mg DAILY PO 01/12/21 09:00 01/20/21 09:48 Heparin Sodium (Porcine) (Heparin) 5,000 units Q12H SC 01/11/21 21:00 01/19/21 23:07 DC 01/19/21 21:41 Latanoprost (Xalatan 0.005% Op Soln) 1 drop QHS OU 01/11/21 21:00 01/19/21 21:42 Magnesium Oxide (Mag-Ox) 800 mg QHS PO 01/11/21 21:00 01/12/21 14:00 DC 01/11/21 20:08 Metoprolol Succinate (TopROL XL) 25 mg DAILY PO 01/12/21 09:00 01/20/21 09:48 Nitroglycerin (Nitrostat (1/ 150)) 0.4 mg Q5MP PRN SL CHEST PAIN 01/11/21 16:35 Olanzapine (ZyPREXA) 2.5 mg BID PRN PO agitation 01/11/21 16:35 Omeprazole (PriLOSEC) 20 mg DAILY PO 01/12/21 09:00 01/20/21 09:48 Oxycodone HCl (Roxicodone, Oxyir) 5 mg Q4HP PRN PO MODERATE PAIN (PS 5-7) 01/12/21 11:25 01/19/21 08:27 Polyethylene Glycol (Miralax) 1 pkt DAILY PRN PO CONSTIPATION 01/11/21 16:35 Prednisone (Deltasone) 10 mg DAILY PO 01/20/21 09:00 01/26/21 09:01 01/20/21 09:47 Prednisone (Deltasone) 20 mg DAILY PO 01/13/21 09:00 01/19/21 09:01 DC 01/19/21 08:27 Ramelteon (Rozerem) 8 mg QHS PO 01/11/21 21:00 01/19/21 21:43 Rosuvastatin Calcium (Crestor) 10 mg DAILY PO 01/12/21 09:00 01/20/21 09:47 Senna (Senokot) 1 tab QHS PO 01/11/21 21:00 01/19/21 21:43 Sodium Chloride 1,000 ml @ 60 mls/hr [id number] IV 01/18/21 14:15 01/19/21 06:54 DC 01/18/21 14:43 Sodium Chloride 1,000 ml @ 100 mls/hr Q10H IV 01/19/21 12:45 01/19/21 22:44 DC 01/19/21 17:44 Tramadol HCl (Ultram) 50 mg Q4HP PRN PO MODERATE PAIN (PS 5-7) 01/11/21 16:35 01/12/21 11:27 ALIYAH LONG MD Jan 20, 2021 11:38
[2021-01-20 12:54] LABS: CK-MB VALUE MASS < 1.0 NG/ML (<3.6); CPK CREATINE PHOSPHOKINASE 29 U/L (26-192); MB/CK RELATIVE INDEX 3.45 (< OR =4); TROPONIN I < 0.02 NG/ML (< 0.10)
--- NOTE | 2021-01-20 13:48 | ECGEPIP ---
[facility] Test Date: 2021-01-20 Pat Name: SHIRA MARTINS Department: Room: [place] [address] Gender: Female Director Corporate Communications: BRITNI : [id number] Requested By: ALIYAH WARREN Order Number: [id number] Reading MD: Shiloh Orellana Measurements Intervals [place] Rate: 63 P: 111 AK: 204 QRS: 181 QRSD: 80 T: 132 QT: 356 QTc: 364 Interpretive Statements Suspect arm lead reversal, interpretation assumes no reversal Normal sinus rhythm 1ST DEGREE BLOCK // IMPROVED R WAVE PROGRESSION Right superior axis deviation SUGGEST REPEAT WITH LEAD VERIFICATION Electronically Signed on 01-20-2021 13:48:19 EDT by Shiloh Orellana
[2021-01-20 14:00] VITALS: BP 159/71
[2021-01-20] MEDS ORDERED: NITROGLYCERIN 0.4 MG SUBL TABLET SL PRN (15:05)
[2021-01-20] MEDS ORDERED: HOME MED LIST COMPLETE! XX SCH (15:10)
--- NOTE | 2021-01-20 17:07 | IPNPDOC ---
Text Note Date of Service The patient was seen on 01/20/21. NOTE Subjective: Patient is an 89-year-old female with a PMHx of HTN, DLP, CKD3 / Atrophic L kidney, Glaucoma, Chronic lower back pain, GERD who was admitted to the acute rehabilitation unit on 01/12 because of debility and right knee pain. Patient was seen and examined at the bedside. Patient reports that her knee is feeling better. She has been progressing with physical therapy. She denies any chest pain, shortness breath, palpitations, nausea, vomiting, abdominal pain or diarrhea. Objective: Vitals (See below) General: Lying in bed, appears comfortable, AAOx3 HEENT: NC, AT CVS: +S1S2 Lungs: Fair air entry b/l, no wheezing, rales or rhonchi Abdomen: Soft, ND, NT Extremities: No evidence of edema, - Calf tenderness, right knee in dressing Imaging: Extremity 01/12: 1. 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 The distinction can be made clinically. 2. Degenerative changes as described above. 3. CT cannot effectively evaluate the ligamentous structures or cartilaginous surfaces. Consider MRI if clinically relevant. CXR 01/18: No acute pulmonary disease. Renal US 01/19: No right hydronephrosis. Right renal cyst. Atrophic left kidney with significant cortical thinning and no definite hydronephrosis. Central left renal cyst 3.4 cm. Assessment and plan: Right knee pain - likely 2/2 pseudogout - Currently patient reports that her knee pain is doing better - Currently on prednisone taper - She continues to work with physical therapy and occupational therapy HTN - BP well controlled - c/w Metoprolol and Amlodipine DLP - c/w Rosuvastatin CKD3 / Atrophic L kidney Glaucoma Mood disorder - c/w Duloxetine Chronic lower back pain - c/w Tylenol GERD - c/w Omeprazole DVT prophylaxis - c/w TEDs/Sequentials - Heparin was discontinued today Disposition: - As per Bam CARPENTER, I+O Bam OJEDA, I+O Laboratory Tests 01/20/21 07:16 Vital Signs Date Time Temp Pulse Resp B/P (MAP) Pulse Ox O2 Delivery O2 Flow Rate FiO2 01/20/21 14:00 98.9 60 18 159/71 (100) 97 Room Air I&O- Last 24 Hours up to 6 AM 01/20/21 06:00 Intake Total 2000 ml Output Total 550 ml Balance 1450 ml OSMAN ZULETA MD Jan 20, 2021 17:07
[2021-01-20 20:00] VITALS: BP 125/60
[2021-01-20] MEDS: SENNA 8.6 MG TAB (SENOKOT) PO SCH (20:38)
[2021-01-20] MEDS: RAMELTEON 8 MG TAB (ROZEREM) PO SCH (20:38)
[2021-01-20] MEDS: LATANOPROST 0.005% OPHTH SOLN 2.5 ML OU SCH (20:38)
[2021-01-20] MEDS: CALCIUM CARBONATE 500 MG CHEW U/D PO PRN (20:39)
--- NOTE | 2021-01-20 22:13 | IPNPDOC ---
Subjective CC/HPI The patient is a 89-year-old female admitted with a reason for visit of Debility. Events since last encounter Pt was given IV fluids. Renal function is improving. Hyperkalemia has also resolved. She reports episode of chest pain last night but she didn't tell anyone. No signs of urinary retention on bladder scan. General: Denies: Chills, Night Sweats Constitutional: Denies: Chills, Fever Eyes: Denies: Pain, Vision change ENT: Reports: Other Symptoms (Dry mouth); Denies: Head Aches Skin: Denies: Rash, Lesions Pulmonary: Denies: Dyspnea, Cough Cardiovascular: Reports: Chest Pain (Last night); Denies: Palpitations, Orthopnea Gastrointestinal: Denies: Nausea, Vomiting Genitourinary: Denies: Dysuria, Frequency Musculoskeletal: Reports: Joint Pain (Rt knee); Denies: Neck Pain, Back Pain Psych: Reports: Anxiety (Unable to get in touch with daughter) Objective Physical Examination General Exam: Alert, No Acute Distress EYE EXAM: PERRLA, Conjunctiva & lids normal ENT EXAM: Atraumatic, Mucous membr. moist/pink Neck Exam: Supple; No: JVD Chest Exam: Clear to auscultation, Normal air movement Heart Exam: Rate Normal; No: Murmurs ABDOMEN EXAM: Normal bowel sounds, Soft, Tenderness (Hematomas at Heparin inj sites) Female Exam: No: Lesions Extremity Exam: No: Clubbing, Cyanosis Skin Exam: Nl turgor and temperature, Lesion (Hematoms around umbilicus) Neuro Exam: Normal Speech, Strength at 5/5 X4 ext Psych Exam: Mental status NL, Anxiety Vital Signs/I&O Vital Signs Date Time Temp Pulse Resp B/P (MAP) Pulse Ox O2 Delivery O2 Flow Rate FiO2 01/20/21 20:00 98.4 70 19 125/60 (81) 98 Room Air I&O- Last 24 Hours up to 6 AM 01/20/21 06:00 Intake Total 2000 ml Output Total 550 ml Balance 1450 ml Laboratory Data Labs 24H Laboratory Tests 2 01/20/21 07:08: 01/20/21 07:16: Immature Granulocyte % (Auto) 3.3H, Neutrophils (%) (Auto) 70.5H, Lymphocytes (%) (Auto) 19.7L, Monocytes (%) (Auto) 5.5, Eosinophils (%) (Auto) 0.5, Basophi ls (%) (Auto) 0.5, Neutrophils # (Auto) 7.8, Lymphocytes # (Auto) 2.2, Monocytes # (Auto) 0.6, Eosinophils # (Auto) 0.1, Basophils # (Auto) 0.1, Nucleated Red Blood Cells % (auto) 0.2H, Anion Gap 7L, Glomerular Filtration Rate 30.3L, Calcium Level 9.0, Iron Level 92, Total Iron Binding Capacity 281, Transferrin % Saturation 32.7, Ferritin 298H 01/20/21 12:08: Total Creatine Kinase 29, Creatine Kinase MB < 1.0, Creatine Kinase MB Relative Index 3.45, Troponin I < 0.02 CBC/BMP Laboratory Tests 01/20/21 07:16 Current Medications Current Medications Medications (Trade) Dose Ordered Sig/Cornelio Route PRN Reason Start Time Stop Time Status Last Admin Dose Admin Acetaminophen (Tylenol Tab) 1,000 mg TID PO 01/11/21 21:00 01/20/21 20:38 Albuterol/ Ipratropium (Combivent Respimat 100-20mcg) 1 puff RTID INH 01/13/21 20:00 01/19/21 20:25 Amlodipine Besylate (Norvasc) 10 mg DAILY PO 01/13/21 09:00 01/20/21 09:47 Artificial Tears (Akwa Tears) 2 drop TID OU 01/11/21 21:00 01/20/21 20:38 Aspirin (Ecotrin) 81 mg DAILY PO 01/12/21 09:00 01/20/21 09:48 Calcium Carbonate (Tums) 500 mg BID PRN PO INDIGESTION 01/14/21 11:15 01/20/21 20:39 Diclofenac Epolamine (Flector 1.3%) 1 patch Q12H TOP 01/11/21 21:00 01/18/21 14:55 DC 01/18/21 09:08 Docusate Sodium (Colace) 100 mg BID PO 01/11/21 21:00 01/20/21 20:38 Duloxetine HCl (Cymbalta) 60 mg DAILY PO 01/12/21 09:00 01/20/21 09:48 Heparin Sodium (Porcine) (Heparin) 5,000 units Q12H SC 01/11/21 21:00 01/19/21 23:07 DC 01/19/21 21:41 Home Med (Home Med List Complete!) ASDIRECTED XX 01/20/21 15:10 01/20/21 15:11 DC Latanoprost (Xalatan 0.005% Op Soln) 1 drop QHS OU 01/11/21 21:00 01/20/21 20:38 Magnesium Oxide (Mag-Ox) 800 mg QHS PO 01/11/21 21:00 01/12/21 14:00 DC 01/11/21 20:08 Metoprolol Succinate (TopROL XL) 25 mg DAILY PO 01/12/21 09:00 01/20/21 09:48 Nitroglycerin (Nitrostat (1/ 150)) 0.4 mg Q5MP PRN SL CHEST PAIN 01/11/21 16:35 Nitroglycerin (Nitrostat (1/ 150)) 0.4 mg Q5MP PRN SL CHEST PAIN 01/20/21 15:05 Olanzapine (ZyPREXA) 2.5 mg BID PRN PO agitation 01/11/21 16:35 Omeprazole (PriLOSEC) 20 mg DAILY PO 01/12/21 09:00 01/20/21 09:48 Oxycodone HCl (Roxicodone, Oxyir) 5 mg Q4HP PRN PO MODERATE PAIN (PS 5-7) 01/12/21 11:25 01/19/21 08:27 Polyethylene Glycol (Miralax) 1 pkt DAILY PRN PO CONSTIPATION 01/11/21 16:35 Prednisone (Deltasone) 10 mg DAILY PO 01/20/21 09:00 01/26/21 09:01 01/20/21 09:47 Prednisone (Deltasone) 20 mg DAILY PO 01/13/21 09:00 01/19/21 09:01 DC 01/19/21 08:27 Ramelteon (Rozerem) 8 mg QHS PO 01/11/21 21:00 01/20/21 20:38 Rosuvastatin Calcium (Crestor) 10 mg DAILY PO 01/12/21 09:00 01/20/21 09:47 Senna (Senokot) 1 tab QHS PO 01/11/21 21:00 01/20/21 20:38 Sodium Chloride 1,000 ml @ 60 mls/hr [id number] IV 01/18/21 14:15 01/19/21 06:54 DC 01/18/21 14:43 Sodium Chloride 1,000 ml @ 100 mls/hr Q10H IV 01/19/21 12:45 01/19/21 22:44 DC 01/19/21 17:44 Tramadol HCl (Ultram) 50 mg Q4HP PRN PO MODERATE PAIN (PS 5-7) 01/11/21 16:35 01/12/21 11:27 DC Allergies Coded Allergies: No Known Allergies (Unverified , 07/27/18) Assessment/Plan Date Seen The patient was seen on 01/20/21 in AM. Plan / VTE VTE Prophylaxis Ordered?: No VTE Exclusion Mechanical Proph: Other (Hematomas and hyperkalemia with Heparin) Plan Orders past 48 Hours Orders Sodium Polystyrene Sulfonate (Kayexalate (01/19/21 00:45) Urinary Catheter DOCUMENT BID (01/19/21 12:10) Urinary Catheter Reflex Discon (01/19/21 12:10) Renal Us (01/19/21 12:14) Bladder (Limited Pelvic) Us (01/19/21 12:14) * Nursing Order * (01/19/21 12:15) Ns 0.45% (Nacl 0.45%) (01/19/21 12:45) Iron (Fe) (01/20/21 06:00) Total Iron Binding Capacit (01/20/21 06:00) Ferritin (01/20/21 06:00) Teds And Sequentials TEDS PER POLICY (01/19/21 23:06) Urinalysis (01/20/21 07:00) Troponin (01/20/21 10:10) CK MB (01/20/21 10:10) Electrocardiogram Adult (01/20/21 10:10) Nitroglycerin (Nitrostat (1/150)) (01/20/21 15:05) Home Med List Complete! (Home Med List C (01/20/21 15:10) Plan Text 1. Recurrent hyperkalemia. Improved. Avoid further use of Heparin. 2. Acute kidney injury superimposed on chronic kidney disease. The patient's best baseline creatinine is 1.4 according to previous records.Cr 1.6 after I V fluid now. 3. Hypertension. Blood pressure is controlled with current dose of amlodipine 10 mg p.o. daily. Continue current dose of metoprolol XL 25 mg p.o. daily. 4. Anemia and chronic kidney disease.Adequate iron level. No need of ZAKIA. Hb>10 now. GILDARDO SÁNCHEZ MD Jan 20, 2021 22:13
[2021-01-21 06:00] VITALS: BP 154/69
[2021-01-21] MEDS: COMBIVENT RESPIMAT 100-20MCG INHALER 4GM INH SCH ×3 (08:07→20:03)
[2021-01-21] MEDS: REMEDY PHYTOPLEX Z-GUARD PASTE 113GM TUBE (FROM STOREROOM PRODUCT) TOP SCH ×3 (09:00→21:03)
[2021-01-21] MEDS: DOCUSATE SODIUM 100MG CAPSULE PO SCH ×2 (09:26→21:00)
[2021-01-21] MEDS: OMEPRAZOLE 20 MG CAP PO SCH (09:26)
[2021-01-21] MEDS: predniSONE 10 MG TAB PO SCH (09:26)
[2021-01-21] MEDS: DULoxetine 30MG CAPSULE (CYMBALTA) PO SCH (09:26)
[2021-01-21] MEDS: ACETAMINOPHEN 500 MG TAB PO SCH ×3 (09:27→21:01)
[2021-01-21] MEDS: ROSUVASTATIN 10 MG TAB (CRESTOR) PO SCH (09:27)
[2021-01-21] MEDS: ASPIRIN 81MG ENTERIC TABLET PO SCH (09:27)
[2021-01-21] MEDS: METOPROLOL SUCC *XL* 25MG TAB (TopROL *XL*) PO SCH (09:27)
[2021-01-21] MEDS: POLYVINYL ALCOHOL OPHTH SOLN 15 ML(LIQUITEARS) OU SCH ×3 (09:28→21:03)
[2021-01-21 14:00] VITALS: BP 139/65
[2021-01-21 20:08] VITALS: BP 147/65
[2021-01-21] MEDS: RAMELTEON 8 MG TAB (ROZEREM) PO SCH (21:01)
[2021-01-21] MEDS: LATANOPROST 0.005% OPHTH SOLN 2.5 ML OU SCH (21:01)
[2021-01-21] MEDS: SENNA 8.6 MG TAB (SENOKOT) PO SCH (21:01)
[2021-01-22] MEDS: oxyCODONE 5MG TAB PO PRN ×2 (04:43→10:35)
[2021-01-22 06:11] VITALS: BP 157/72
[2021-01-22 06:50] LABS: BASO # 0.1 10^3/uL (0.0-0.2); BASO % 0.6 % (0.0-1.0); EOS # 0.1 10^3/uL (0.0-0.5); EOS % 1.1 % (0.0-3.0); HEMATOCRIT 29.8 % (36.0-47.0); HEMOGLOBIN 9.5 g/dl (12.0-15.5); LYMPH # 2.1 10^3/uL (1.5-5.0); LYMPH % 22.5 % (24.0-44.0); MEAN CORPUSCULAR HEMOGLOBIN 30.8 pg (27.0-33.0); MEAN CORPUSCULAR HGB CONC 31.9 g/dl (32.0-36.5); MEAN CORPUSCULAR VOLUME 96.8 fl (80.0-96.0); MONO # 0.6 10^3/uL (0.0-0.8); MONO % 6.1 % (2.0-8.0); NEUTROPHILS # 6.3 10^3/uL (1.5-8.5); NEUTROPHILS % 66.9 % (36.0-66.0); PLATELET COUNT, AUTOMATED 236 10^3/uL (150-450); RED BLOOD COUNT 3.08 10^6/uL (4.00-5.40); WHITE BLOOD COUNT 9.4 10^3/uL (4.0-10.0)
[2021-01-22 07:23] LABS: ALBUMIN 3.3 GM/DL (3.2-5.2); CALCIUM LEVEL 8.9 MG/DL (8.8-10.2); CREATININE FOR GFR 1.56 MG/DL (0.55-1.30); GLOMERULAR FILTRATION RATE 33.3 (>32); PHOSPHORUS LEVEL 3.3 MG/DL (2.5-4.9); POTASSIUM SERUM 4.7 MEQ/L (3.5-5.1)
[2021-01-22] MEDS: DULoxetine 30MG CAPSULE (CYMBALTA) PO SCH (07:36)
[2021-01-22] MEDS: predniSONE 10 MG TAB PO SCH (07:37)
[2021-01-22] MEDS: METOPROLOL SUCC *XL* 25MG TAB (TopROL *XL*) PO SCH (07:37)
[2021-01-22] MEDS: ROSUVASTATIN 10 MG TAB (CRESTOR) PO SCH (07:37)
[2021-01-22] MEDS: OMEPRAZOLE 20 MG CAP PO SCH (07:37)
[2021-01-22] MEDS: CALCIUM CARBONATE 500 MG CHEW U/D PO PRN (07:37)
[2021-01-22] MEDS: ASPIRIN 81MG ENTERIC TABLET PO SCH (07:37)
[2021-01-22] MEDS: POLYVINYL ALCOHOL OPHTH SOLN 15 ML(LIQUITEARS) OU SCH ×3 (07:38→20:35)
[2021-01-22] MEDS: DOCUSATE SODIUM 100MG CAPSULE PO SCH ×2 (07:38→20:36)
[2021-01-22] MEDS: ACETAMINOPHEN 500 MG TAB PO SCH ×3 (07:40→20:37)
[2021-01-22] MEDS: REMEDY PHYTOPLEX Z-GUARD PASTE 113GM TUBE (FROM STOREROOM PRODUCT) TOP SCH ×3 (07:42→20:38)
[2021-01-22] MEDS: COMBIVENT RESPIMAT 100-20MCG INHALER 4GM INH SCH ×3 (07:52→20:18)
--- NOTE | 2021-01-22 10:45 | IPNPDOC ---
Subjective CC/HPI The patient is a 89-year-old female admitted with a reason for visit of Debility. Events since last encounter Pt reports Rt knee pain otherwise no issues. Renal function stable.Cr 1.6-->1.5 now General: Denies: Chills, Night Sweats Constitutional: Denies: Chills, Fever, Malaise Eyes: Denies: Vision change ENT: Denies: Head Aches, Ear Pain Skin: Denies: Rash, Lesions Pulmonary: Denies: Dyspnea, Cough Cardiovascular: Denies: Chest Pain, Palpitations Gastrointestinal: Denies: Nausea, Vomiting Genitourinary: Denies: Dysuria, Frequency Hematologic: Denies: Bruising, Bleeding Excessively Musculoskeletal: Reports: Joint Pain (Rt knee) Neurological: Denies: Weakness, Numbness Psych: Reports: Mood Normal Objective Physical Examination General Exam: Alert, No Acute Distress EYE EXAM: PERRLA, Conjunctiva & lids normal ENT EXAM: Atraumatic, Mucous membr. moist/pink Neck Exam: Supple; No: JVD Chest Exam: Clear to auscultation, Normal air movement Heart Exam: Rate Normal, Murmurs (systolic 3/6) ABDOMEN EXAM: Normal bowel sounds, Soft; No: Tenderness Female Exam: No: Lesions Extremity Exam: No: Clubbing, Cyanosis Skin Exam: Nl turgor and temperature, Lesion (Hematoms around umbilicus) Neuro Exam: Normal Speech, Strength at 5/5 X4 ext Psych Exam: Mental status NL, Anxiety Vital Signs/I&O Vital Signs Date Time Temp Pulse Resp B/P (MAP) Pulse Ox O2 Delivery O2 Flow Rate FiO2 01/22/21 10:35 16 01/22/21 07:37 64 157/72 01/22/21 06:11 98.0 97 Room Air I&O- Last 24 Hours up to 6 AM 01/22/21 06:00 Intake Total 960 ml Balance 960 ml Laboratory Data Labs 24H Laboratory Tests 2 01/22/21 06:37: Immature Granulocyte % (Auto) 2.8, Neutrophils (%) (Auto) 66.9H, Lymphocytes (%) (Auto) 22.5L, Monocytes (%) (Auto) 6.1, Eosinophils (%) (Auto) 1.1, Basophils (%) (Auto) 0.6, Neutrophils # (Auto) 6.3, Lymphocytes # (Auto) 2.1, Monocytes # (Auto) 0.6, Eosinophils # (Auto) 0.1, Basophils # (Auto) 0.1, Nucleated Red Blood Cells % (auto) 0.0, Anion Gap 7L, Glomerular Filtration Rate 33.3, Calcium Level 8.9, Phosphorus Level 3.3, Albumin 3.3 CBC/BMP Laboratory Tests 01/22/21 06:37 Current Medications Current Medications Medications (Trade) Dose Ordered Sig/Cornelio Route PRN Reason Start Time Stop Time Status Last Admin Dose Admin Acetaminophen (Tylenol Tab) 1,000 mg TID PO 01/11/21 21:00 01/22/21 07:40 Albuterol/ Ipratropium (Combivent Respimat 100-20mcg) 1 puff RTID INH 01/13/21 20:00 01/21/21 20:03 Amlodipine Besylate (Norvasc) 10 mg DAILY PO 01/13/21 09:00 01/22/21 07:37 Artificial Tears (Akwa Tears) 2 drop TID OU 01/11/21 21:00 01/22/21 07:38 Aspirin (Ecotrin) 81 mg DAILY PO 01/12/21 09:00 01/22/21 07:37 Calcium Carbonate (Tums) 500 mg BID PRN PO INDIGESTION 01/14/21 11:15 01/22/21 07:37 Diclofenac Epolamine (Flector 1.3%) 1 patch Q12H TOP 01/11/21 21:00 01/18/21 14:55 DC 01/18/21 09:08 Docusate Sodium (Colace) 100 mg BID PO 01/11/21 21:00 01/21/21 21:00 Duloxetine HCl (Cymbalta) 60 mg DAILY PO 01/12/21 09:00 01/22/21 07:36 Heparin Sodium (Porcine) (Heparin) 5,000 units Q12H SC 01/11/21 21:00 01/19/21 23:07 DC 01/19/21 21:41 Home Med (Home Med List Complete!) ASDIRECTED XX 01/20/21 15:10 01/20/21 15:11 DC Latanoprost (Xalatan 0.005% Op Soln) 1 drop QHS OU 01/11/21 21:00 01/21/21 21:01 Magnesium Oxide (Mag-Ox) 800 mg QHS PO 01/11/21 21:00 01/12/21 14:00 DC 01/11/21 20:08 Metoprolol Succinate (TopROL XL) 25 mg DAILY PO 01/12/21 09:00 01/22/21 07:37 Nitroglycerin (Nitrostat (1/ 150)) 0.4 mg Q5MP PRN SL CHEST PAIN 01/11/21 16:35 Nitroglycerin (Nitrostat (1/ 150)) 0.4 mg Q5MP PRN SL CHEST PAIN 01/20/21 15:05 Olanzapine (ZyPREXA) 2.5 mg BID PRN PO agitation 01/11/21 16:35 Omeprazole (PriLOSEC) 20 mg DAILY PO 01/12/21 09:00 01/22/21 07:37 Oxycodone HCl (Roxicodone, Oxyir) 5 mg Q4HP PRN PO MODERATE PAIN (PS 5-7) 01/12/21 11:25 01/22/21 10:35 Polyethylene Glycol (Miralax) 1 pkt DAILY PRN PO CONSTIPATION 01/11/21 16:35 Prednisone (Deltasone) 10 mg DAILY PO 01/20/21 09:00 01/26/21 09:01 01/22/21 07:37 Prednisone (Deltasone) 20 mg DAILY PO 01/13/21 09:00 01/19/21 09:01 DC 01/19/21 08:27 Ramelteon (Rozerem) 8 mg QHS PO 01/11/21 21:00 01/21/21 21:01 Rosuvastatin Calcium (Crestor) 10 mg DAILY PO 01/12/21 09:00 01/22/21 07:37 Senna (Senokot) 1 tab QHS PO 01/11/21 21:00 01/21/21 21:01 Sodium Chloride 1,000 ml @ 60 mls/hr [id number] IV 01/18/21 14:15 01/19/21 06:54 DC 01/18/21 14:43 Sodium Chloride 1,000 ml @ 100 mls/hr Q10H IV 01/19/21 12:45 01/19/21 22:44 DC 01/19/21 17:44 Tramadol HCl (Ultram) 50 mg Q4HP PRN PO MODERATE PAIN (PS 5-7) 01/11/21 16:35 01/12/21 11:27 DC Allergies Coded Allergies: No Known Allergies (Unverified , 07/27/18) Assessment/Plan Date Seen The patient was seen on 01/22/21 at 10:43. Plan / VTE VTE Prophylaxis Ordered?: No VTE Exclusion Mechanical Proph: Other (Hematomas and hyperkalemia with Heparin) Plan Orders past 48 Hours Orders Nitroglycerin (Nitrostat (1/150)) (01/20/21 15:05) Home Med List Complete! (Home Med List C (01/20/21 15:10) * Nursing Order * (01/21/21 07:06) Cbc With Auto Diff (01/22/21 06:00) Renal Profile (01/22/21 06:00) Plan Text 1. Recurrent hyperkalemia. resolved 2. Acute kidney injury superimposed on chronic kidney disease. The patient's best baseline creatinine is 1.4. Cr today is 1.5 which is stable and improving. 3. Hypertension. Blood pressure is controlled with current dose of amlodipine 10 mg p.o. daily. Continue current dose of metoprolol XL 25 mg p.o. daily. 4. Anemia and chronic kidney disease.Adequate iron level. No need of ZAKIA. GILDARDO SÁNCHEZ MD Jan 22, 2021 10:45
[2021-01-22 14:00] VITALS: BP 123/57
[2021-01-22 20:00] VITALS: BP 147/69
[2021-01-22] MEDS: SENNA 8.6 MG TAB (SENOKOT) PO SCH (20:36)
[2021-01-22] MEDS: RAMELTEON 8 MG TAB (ROZEREM) PO SCH (20:36)
[2021-01-22] MEDS: LATANOPROST 0.005% OPHTH SOLN 2.5 ML OU SCH (20:38)
[2021-01-23 06:00] VITALS: BP 143/65
[2021-01-23] MEDS: DOCUSATE SODIUM 100MG CAPSULE PO SCH ×2 (08:19→21:27)
[2021-01-23] MEDS: OMEPRAZOLE 20 MG CAP PO SCH (08:19)
[2021-01-23] MEDS: predniSONE 10 MG TAB PO SCH (08:19)
[2021-01-23] MEDS: ACETAMINOPHEN 500 MG TAB PO SCH ×3 (08:19→21:28)
[2021-01-23] MEDS: DULoxetine 30MG CAPSULE (CYMBALTA) PO SCH (08:19)
[2021-01-23] MEDS: METOPROLOL SUCC *XL* 25MG TAB (TopROL *XL*) PO SCH (08:20)
[2021-01-23] MEDS: ASPIRIN 81MG ENTERIC TABLET PO SCH (08:20)
[2021-01-23] MEDS: ROSUVASTATIN 10 MG TAB (CRESTOR) PO SCH (08:20)
[2021-01-23] MEDS: REMEDY PHYTOPLEX Z-GUARD PASTE 113GM TUBE (FROM STOREROOM PRODUCT) TOP SCH ×3 (08:21→21:00)
[2021-01-23] MEDS: POLYVINYL ALCOHOL OPHTH SOLN 15 ML(LIQUITEARS) OU SCH ×3 (08:21→21:28)
[2021-01-23] MEDS: COMBIVENT RESPIMAT 100-20MCG INHALER 4GM INH SCH ×2 (09:15→19:57)
--- NOTE | 2021-01-23 10:44 | IPNPDOC ---
Text Note Date of Service The patient was seen on 01/23/21. NOTE Patient was seen and examined at the bedside. Patient reports that her knee is feeling better. She has been progressing with physical therapy. She denies any chest pain, shortness breath, palpitations, nausea, vomiting, abdominal pain or diarrhea. Physical examination General: Lying in bed, appears comfortable, AAOx3 HEENT: NC, AT CVS: +S1S2 Lungs: Fair air entry b/l, no wheezing, rales or rhonchi Abdomen: Soft, ND, NT Extremities: No evidence of edema, - Calf tenderness, right knee in dressing Imaging: Extremity 01/12: 1. 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 The distinction can be made clinically. 2. Degenerative changes as described above. 3. CT cannot effectively evaluate the ligamentous structures or cartilaginous surfaces. Consider MRI if clinically relevant. Renal US 01/19: No right hydronephrosis. Right renal cyst. Atrophic left kidney with significant cortical thinning and no definite hydronephrosis. Central left renal cyst 3.4 cm. Assessment and plan: Patient is an 89-year-old female with a PMHx of HTN, DLP, CKD3 / Atrophic L kidney, Glaucoma, Chronic lower back pain, GERD who was admitted to the acute rehabilitation unit on 01/12 because of debility and right knee pain. 1. Right knee pain - likely 2/2 pseudogout : Currently patient reports that her knee pain is doing better, on prednisone taper . She continues to work with physical therapy and occupational therapy 2. HTN: BP well controlled: c/w Metoprolol and Amlodipine 3. DLP: c/w Rosuvastatin 4. CKD3 / Atrophic L kidney. Continue monitoring currently at baseline avoid nephrotoxic drugs 5. Mood disorder: c/w Duloxetine 6. Chronic lower back pain: c/w Tylenol GERD: c/w Omeprazole DVT prophylaxis: c/w TEDs/Sequentials, Heparin was discontinued Disposition: As per KEU Bam OJEDA, I+O VSBam, I+O Vital Signs Date Time Temp Pulse Resp B/P (MAP) Pulse Ox O2 Delivery O2 Flow Rate FiO2 01/23/21 08:19 60 143/65 01/23/21 06:00 98.2 17 100 Room Air I&O- Last 24 Hours up to 6 AM 01/23/21 05:59 Intake Total 720 ml Balance 720 ml SHERIF DEMARCO MD Jan 23, 2021 10:44
[2021-01-23] MEDS: oxyCODONE 5MG TAB PO PRN (11:38)
[2021-01-23 14:00] VITALS: BP 122/60
[2021-01-23 20:00] VITALS: BP 129/63
[2021-01-23] MEDS: RAMELTEON 8 MG TAB (ROZEREM) PO SCH (21:28)
[2021-01-23] MEDS: SENNA 8.6 MG TAB (SENOKOT) PO SCH (21:28)
[2021-01-23] MEDS: LATANOPROST 0.005% OPHTH SOLN 2.5 ML OU SCH (21:28)
[2021-01-24] MEDS: oxyCODONE 5MG TAB PO PRN (04:19)
[2021-01-24 06:00] VITALS: BP 176/79
[2021-01-24 06:51] VITALS: BP 168/68
[2021-01-24 07:42] LABS: BASO # 0.1 10^3/uL (0.0-0.2); BASO % 0.6 % (0.0-1.0); EOS # 0.1 10^3/uL (0.0-0.5); EOS % 1.1 % (0.0-3.0); HEMATOCRIT 30.4 % (36.0-47.0); HEMOGLOBIN 9.6 g/dl (12.0-15.5); LYMPH # 2.1 10^3/uL (1.5-5.0); LYMPH % 22.2 % (24.0-44.0); MEAN CORPUSCULAR HEMOGLOBIN 31.1 pg (27.0-33.0); MEAN CORPUSCULAR HGB CONC 31.6 g/dl (32.0-36.5); MEAN CORPUSCULAR VOLUME 98.4 fl (80.0-96.0); MONO # 0.6 10^3/uL (0.0-0.8); MONO % 6.2 % (2.0-8.0); NEUTROPHILS # 6.5 10^3/uL (1.5-8.5); NEUTROPHILS % 68.1 % (36.0-66.0); PLATELET COUNT, AUTOMATED 241 10^3/uL (150-450); RED BLOOD COUNT 3.09 10^6/uL (4.00-5.40); WHITE BLOOD COUNT 9.6 10^3/uL (4.0-10.0)
[2021-01-24] MEDS: COMBIVENT RESPIMAT 100-20MCG INHALER 4GM INH SCH (08:00)
[2021-01-24 08:06] LABS: CALCIUM LEVEL 8.6 MG/DL (8.8-10.2); CREATININE FOR GFR 1.83 MG/DL (0.55-1.30); GLOMERULAR FILTRATION RATE 27.7 (>32); POTASSIUM SERUM 4.8 MEQ/L (3.5-5.1)
[2021-01-24 08:34] VITALS: BP 152/60
[2021-01-24] MEDS: DOCUSATE SODIUM 100MG CAPSULE PO SCH (08:35)
[2021-01-24] MEDS: ROSUVASTATIN 10 MG TAB (CRESTOR) PO SCH (08:35)
[2021-01-24] MEDS: ACETAMINOPHEN 500 MG TAB PO SCH (08:35)
[2021-01-24] MEDS: OMEPRAZOLE 20 MG CAP PO SCH (08:35)
[2021-01-24] MEDS: DULoxetine 30MG CAPSULE (CYMBALTA) PO SCH (08:35)
[2021-01-24] MEDS: ASPIRIN 81MG ENTERIC TABLET PO SCH (08:35)
[2021-01-24] MEDS: METOPROLOL SUCC *XL* 25MG TAB (TopROL *XL*) PO SCH (08:36)
[2021-01-24] MEDS: predniSONE 10 MG TAB PO SCH (08:36)
[2021-01-24] MEDS: POLYVINYL ALCOHOL OPHTH SOLN 15 ML(LIQUITEARS) OU SCH (08:36)
[2021-01-24] MEDS: REMEDY PHYTOPLEX Z-GUARD PASTE 113GM TUBE (FROM STOREROOM PRODUCT) TOP SCH (08:37)
[2021-01-24] MEDS ORDERED: COMBAER6 INH (11:07)
[2021-01-24] MEDS ORDERED: AMLO1TAB25 PO (11:07)
[2021-01-24] MEDS ORDERED: METO1TAB32 PO (11:07)
[2021-01-24] MEDS ORDERED: ASPI-161 PO (11:07)
[2021-01-24] MEDS ORDERED: DULO1CAP6 PO (11:07)
[2021-01-24] MEDS ORDERED: NITR4TASL SL (11:07)
[2021-01-24] MEDS ORDERED: OMEP-218 PO (11:07)
[2021-01-24] MEDS ORDERED: OXYC-517 PO (11:07)
[2021-01-24] MEDS ORDERED: ROSU10TA6 PO (11:07)
[2021-01-24] MEDS ORDERED: PRED10TA2 PO (11:11)
--- NOTE | 2021-01-24 11:19 | IPNPDOC ---
PM&R Progress Note DATE OF SERVICE: Jan 23, 2021 [employer] Progress Note Subjective: Patient seen in her room stating she feels ready for room privileges and her pain is well controlled. REVIEW OF SYSTEMS: The following is a completed review of systems and has been reviewed. Review of systems otherwise unremarkable. PAIN: Patient self reports right knee pain EYES: No recent vision changes EARS, NOSE, & THROAT: No throat pain, or dysphagia, or rhinorrhea CARDIOVASCULAR: Denies chest pain or palpitations PULMONARY: Denies shortness of breath, intermittent cough (resolved) GASTROINTESTINAL: Denies constipation/diarrhea GENITOURINARY: denies dysuria MUSCULOSKELETAL:right knee pain (improving) NEUROLOGICAL:denies paresthesias HEMATOLOGICAL: denies easy bruising SKIN: denies rash PSYCHIATRIC: Unremarkable All other review of systems found to be negative. PHYSICAL EXAMINATION: VITAL SIGNS: Please see below. GENERAL: Pleasant and cooperative. No acute distress. HEENT: PERRL. Extraocular movements intact. Clear conjunctiva CARDIOVASCULAR: Regular rate and rhythm.+systolic murmur, rubs, or gallops LUNGS: Clear to auscultation bilaterally. No wheezes. No rhonchi ABDOMEN: Soft, mildly-distended. Positive bowel sounds. NEUROLOGICAL: Alert and oriented times three. Cranial nerves II through XII grossly intact. Sensation grossly intact EXTREMITIES: 5\5 strength bilateral upper extremities. 4+\5 strength right lower extremity. 5/5 strength in left lower extremity. right knee- no notable effusion/warm, mild medial joint line pain, no varus/valgus instability ASSESSMENT:89-year-old F with past medical history of HTN and chronic back pain who presents status post injury to right knee with pseudogout flare with inab ility to ambulate PLAN: 1. Rehab- PT/OT advance mobility and ADLs, strengthen/stretch/maintain ROM all 4 limbs- ambulating with RW, room privileges 2. Neuro- recent episode of delirium cont to monitor, Zyprexa ordered prn 3. 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 CArdiac- hx of HTN cont BP meds -HLD- cont statin -recent ECHO showing grade 1 diastolic CHF- daily weights, fluid restrict -episode of chest pain overnight-resolved on it own, CK/Trop ordered this am and are normal, EKG also showing no ST elevations, nitroglycerin ordered prn and patient instructed to notify staff if this should happen again -medicine consulted to assist in overall management 5. resp- monitor for infection -cont combivent for intermittent cough which patient reporting has resolved, CXR 01-18-21 negative for infiltrate- patient on steroids 6. Renal- CKD with TAY and hyperkalemia that has resolved, renal consulted, recs appreciated 7. DVT ppx- heparin 8. GI ppx- prilosec 9. Pain cymbalta and oxycodone, flector patch (d/c'd due to worsening kidney function) and tylenol -bedsoe brace for knee stabilization 10. Leukocytosis- likely due to steroid use, patient afebrile, no dysuria 11. Dispo- 01-24-21 to home, progressing towards goals DME PAtient will require bilateral platforms to use with a walker in order to ambulate safely and complete her MRADLs in a timely and safe manner. She is unable to offload her right knee succinctly with a rolling walker alone or a cane. A platform walker (bilateral) will prevent her from falling and promote mobility. Allergies Coded Allergies: No Known Allergies (Unverified , 07/27/18) Vital Signs Vital Signs Date Time Temp Pulse Resp B/P (MAP) Pulse Ox O2 Delivery O2 Flow Rate FiO2 01/24/21 08:34 62 152/60 01/24/21 06:00 97.4 16 99 Room Air Laboratory Data CBC/BMP Laboratory Tests 01/24/21 07:28 Labs 24H Laboratory Tests 2 01/24/21 07:28: Immature Granulocyte % (Auto) 1.8, Neutrophils (%) (Auto) 68.1H, Lymphocytes (%) (Auto) 22.2L, Monocytes (%) (Auto) 6.2, Eosinophils (%) (Auto) 1.1, Basophils (%) (Auto) 0.6, Neutrophils # (Auto) 6.5, Lymphocytes # (Auto) 2.1, Monocytes # (Auto) 0.6, Eosinophils # (Auto) 0.1, Basophils # (Auto) 0.1, Nucleated Red Blood Cells % (auto) 0.0, Anion Gap 4L, Glomerular Filtration Rate 27.7L, Calcium Level 8.6L Current Medications Current Medications Current Medications Medications (Trade) Dose Ordered Sig/Cornelio Route PRN Reason Start Time Stop Time Status Last Admin Dose Admin Acetaminophen (Tylenol Tab) 1,000 mg TID PO 01/11/21 21:00 01/24/21 08:35 Albuterol/ Ipratropium (Combivent Respimat 100-20mcg) 1 puff RTID INH 01/13/21 20:00 01/23/21 19:57 Amlodipine Besylate (Norvasc) 10 mg DAILY PO 01/13/21 09:00 01/24/21 08:34 Artificial Tears (Akwa Tears) 2 drop TID OU 01/11/21 21:00 01/24/21 08:36 Aspirin (Ecotrin) 81 mg DAILY PO 01/12/21 09:00 01/24/21 08:35 Calcium Carbonate (Tums) 500 mg BID PRN PO INDIGESTION 01/14/21 11:15 01/22/21 07:37 Diclofenac Epolamine (Flector 1.3%) 1 patch Q12H TOP 01/11/21 21:00 01/18/21 14:55 DC 01/18/21 09:08 Docusate Sodium (Colace) 100 mg BID PO 01/11/21 21:00 01/24/21 08:35 Duloxetine HCl (Cymbalta) 60 mg DAILY PO 01/12/21 09:00 01/24/21 08:35 Heparin Sodium (Porcine) (Heparin) 5,000 units Q12H SC 01/11/21 21:00 01/19/21 23:07 DC 01/19/21 21:41 Home Med (Home Med List Complete!) ASDIRECTED XX 01/20/21 15:10 01/20/21 15:11 DC Latanoprost (Xalatan 0.005% Op Soln) 1 drop QHS OU 01/11/21 21:00 01/23/21 21:28 Magnesium Oxide (Mag-Ox) 800 mg QHS PO 01/11/21 21:00 01/12/21 14:00 DC 01/11/21 20:08 Metoprolol Succinate (TopROL XL) 25 mg DAILY PO 01/12/21 09:00 01/24/21 08:36 Nitroglycerin (Nitrostat (1/ 150)) 0.4 mg Q5MP PRN SL CHEST PAIN 01/11/21 16:35 Nitroglycerin (Nitrostat (1/ 150)) 0.4 mg Q5MP PRN SL CHEST PAIN 01/20/21 15:05 Olanzapine (ZyPREXA) 2.5 mg BID PRN PO agitation 01/11/21 16:35 Omeprazole (PriLOSEC) 20 mg DAILY PO 01/12/21 09:00 01/24/21 08:35 Oxycodone HCl (Roxicodone, Oxyir) 5 mg Q4HP PRN PO MODERATE PAIN (PS 5-7) 01/12/21 11:25 01/24/21 04:19 Polyethylene Glycol (Miralax) 1 pkt DAILY PRN PO CONSTIPATION 01/11/21 16:35 Prednisone (Deltasone) 10 mg DAILY PO 01/20/21 09:00 01/26/21 09:01 01/24/21 08:36 Prednisone (Deltasone) 20 mg DAILY PO 01/13/21 09:00 01/19/21 09:01 DC 01/19/21 08:27 Ramelteon (Rozerem) 8 mg QHS PO 01/11/21 21:00 01/23/21 21:28 Rosuvastatin Calcium (Crestor) 10 mg DAILY PO 01/12/21 09:00 01/24/21 08:35 Senna (Senokot) 1 tab QHS PO 01/11/21 21:00 01/23/21 21:28 Sodium Chloride 1,000 ml @ 60 mls/hr [id number] IV 01/18/21 14:15 01/19/21 06:54 DC 01/18/21 14:43 Sodium Chloride 1,000 ml @ 100 mls/hr Q10H IV 01/19/21 12:45 01/19/21 22:44 DC 01/19/21 17:44 Tramadol HCl (Ultram) 50 mg Q4HP PRN PO MODERATE PAIN (PS 5-7) 01/11/21 16:35 01/12/21 11:27 ALIYAH LONG MD Jan 24, 2021 11:19
--- NOTE | 2021-01-24 12:54 | IPNPDOC ---
Text Note Date of Service The patient was seen on 01/24/21. NOTE Patient was seen and examined at the bedside. Patient reports that her knee is feeling better. She has been progressing with physical therapy. Physical examination General: Lying in bed, appears comfortable, AAOx3 HEENT: NC, AT CVS: +S1S2 Lungs: Fair air entry b/l, no wheezing, rales or rhonchi Abdomen: Soft, ND, NT Extremities: No evidence of edema, - Calf tenderness, right knee in dressing Imaging: Extremity 01/12: 1. 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 The distinction can be m guilherme clinically. 2. Degenerative changes as described above. 3. CT cannot effectively evaluate the ligamentous structures or cartilaginous surfaces. Consider MRI if clinically relevant. Renal US 01/19: No right hydronephrosis. Right renal cyst. Atrophic left kidney with significant cortical thinning and no definite hydronephrosis. Central left renal cyst 3.4 cm. Assessment and plan: Patient is an 89-year-old female with a PMHx of HTN, DLP, CKD3 / Atrophic L kidney, Glaucoma, Chronic lower back pain, GERD who was admitted to the acute rehabilitation unit on 01/12 because of debility and right knee pain. 1. Right knee pain - likely 2/2 pseudogout : Currently patient reports that her knee pain is doing better, on prednisone taper . She continues to work with physical therapy and occupational therapy 2. HTN: BP well controlled: c/w Metoprolol and Amlodipine 3. DLP: c/w Rosuvastatin 4. CKD3 / Atrophic L kidney. His bump in creatinine but she is making good urine, continue monitoring, avoid nephrotoxic drugs 5. Mood disorder: c/w Duloxetine 6. Chronic lower back pain: c/w Tylenol GERD: c/w Omeprazole DVT prophylaxis: c/w TEDs/Sequentials, Heparin was discontinued Disposition: As per KEU Bam OJEDA, I+O VSBam, I+O Laboratory Tests 01/24/21 07:28 Vital Signs Date Time Temp Pulse Resp B/P (MAP) Pulse Ox O2 Delivery O2 Flow Rate FiO2 01/24/21 08:34 62 152/60 01/24/21 06:00 97.4 16 99 Room Air I&O- Last 24 Hours up to 6 AM 01/24/21 06:00 Intake Total 1480 ml Balance 1480 ml SHERIF DEMARCO MD Jan 24, 2021 12:54
[2021-01-24 14:00] VITALS: BP 150/62
== END 2021-01-24 15:22 | disposition home health service (06) | DRG 554 ==
LOC: M PM&R 01-11 15:35
PROVIDERS: ADMIT Physical Medicine & Rehabilitation; ATTEND Physical Medicine & Rehabilitation
DX: M10.061 Idiopathic gout, right knee (principal); I13.0 Hypertensive heart and chronic kidney disease with heart failure and stage 1 through stage 4 chronic kidney disease, or unspecified chronic kidney disease; I50.32 Chronic diastolic (congestive) heart failure; N17.9 Acute kidney failure, unspecified; M25.561 Pain in right knee; M25.861 Other specified joint disorders, right knee; M17.11 Unilateral primary osteoarthritis, right knee; E78.5 Hyperlipidemia, unspecified; K21.9 Gastro-esophageal reflux disease without esophagitis; H40.9 Unspecified glaucoma; R26.2 Difficulty in walking, not elsewhere classified; N18.30 Chronic kidney disease, stage 3 unspecified; R41.0 Disorientation, unspecified; Z74.09 Other reduced mobility; Z74.1 Need for assistance with personal care; Z79.82 Long term (current) use of aspirin; Z79.899 Other long term (current) drug therapy; Z68.31 Body mass index [BMI] 31.0-31.9, adult; E87.5 Hyperkalemia; H35.30 Unspecified macular degeneration; Z87.891 Personal history of nicotine dependence; D63.1 Anemia in chronic kidney disease; M54.5 Low back pain

== ENCOUNTER 2021-03-17 12:15 | Inpatient (IN) | payer MEDICARE, BC ==
[~2021-03-17] VITALS: Ht 162.6 cm; Wt 83.6 kg
[~2021-03-17 12:15] MED LIST changes: +AMLO1TAB25 PO; +COMBAER6 INH; +DULO1CAP6; +MAGN400T2 PO; -MAGN400T3 PO; +MAGN400T33 PO; +OMEP-173; +OMEP-173 PO; -OMEP-218 PO; +OXYC-517 PO; +PRED10TA2 PO; +ROSU10TA6
[2021-03-17 14:40] LABS: BASO # 0.1 10^3/uL (0.0-0.2); BASO % 0.7 % (0.0-1.0); EOS # 0.1 10^3/uL (0.0-0.5); HEMATOCRIT 28.7 % (36.0-47.0); HEMOGLOBIN 8.9 g/dl (12.0-15.5); LYMPH # 1.6 10^3/uL (1.5-5.0); LYMPH % 14.8 % (24.0-44.0); MEAN CORPUSCULAR HEMOGLOBIN 30.2 pg (27.0-33.0); MEAN CORPUSCULAR VOLUME 97.3 fl (80.0-96.0); MONO # 0.7 10^3/uL (0.0-0.8); MONO % 6.2 % (2.0-8.0); NEUTROPHILS % 76.2 % (36.0-66.0); PLATELET COUNT, AUTOMATED 234 10^3/uL (150-450); RED BLOOD COUNT 2.95 10^6/uL (4.00-5.40); WHITE BLOOD COUNT 10.5 10^3/uL (4.0-10.0)
[2021-03-17 15:07] LABS: ALBUMIN 3.3 GM/DL (3.2-5.2); BILIRUBIN,DIRECT 0.1 MG/DL (0.0-0.2); BILIRUBIN,TOTAL 0.4 MG/DL (0.2-1.0); CALCIUM LEVEL 9.8 MG/DL (8.8-10.2); CK-MB VALUE MASS 2.3 NG/ML (<3.6); CREATININE FOR GFR 1.74 MG/DL (0.55-1.30); GLOMERULAR FILTRATION RATE 29.3 (>32); MB/CK RELATIVE INDEX 3.38 (< OR =4); POTASSIUM SERUM 4.6 MEQ/L (3.5-5.1); TOTAL PROTEIN 7.3 GM/DL (6.4-8.2); TROPONIN I 0.47 NG/ML (< 0.10)
[2021-03-17] MEDS ORDERED: FUROSEMIDE 40MG/4ML VIAL (J1940) IV ONE (15:55)
[2021-03-17] MEDS ORDERED: OMEP1CAP73 PO (19:14)
[2021-03-17] MEDS ORDERED: NITR4TASL SL (19:14)
[2021-03-17] MEDS ORDERED: AMLO1TAB25 PO (19:14)
[2021-03-17] MEDS ORDERED: METO1TAB32 PO (19:14)
[2021-03-17] MEDS ORDERED: ROSU10TA6 PO (19:14)
[2021-03-17] MEDS ORDERED: DULO60CA35 PO (19:14)
[2021-03-17] MEDS ORDERED: ECOT81TA5 PO (19:14)
[2021-03-17] MEDS ORDERED: MED REC COMMENT (19:16)
[2021-03-17] MEDS ORDERED: HOME MED LIST COMPLETE! XX SCH (19:20)
[2021-03-17 19:24] LABS: HEMATOCRIT 28.7 % (36.0-47.0)
[2021-03-17 19:25] LABS: PERCENT SATURATION 13.1 % (13.2-45.0); URIC ACID 8.2 MG/DL (2.6-6.0)
[2021-03-17 19:31] LABS: RSV AMPLIFICATION NEGATIVE (NEGATIVE)
[2021-03-17] MEDS ORDERED: POLYVINYL ALCOHOL OPHTH SOLN 15 ML(LIQUITEARS) OU PRN (20:20)
[2021-03-17] MEDS ORDERED: NITROGLYCERIN 0.4 MG SUBL TABLET SL PRN (20:20)
[2021-03-17] MEDS ORDERED: NS 500 ML IV ONE (22:20)
[2021-03-17] MEDS ORDERED: CLOPIDOGREL 300 MG TAB (PLAVIX) PO STA (22:56)
[2021-03-17 23:00] VITALS: BP 128/65
[2021-03-17] MEDS ORDERED: HEPARIN SOD (PORCINE) 5000UNITS/ML 1ML VIAL/SYRINGE IV PRN (23:00)
[2021-03-18 00:33] LABS: HEMATOCRIT 27.6 % (36.0-47.0); HEMOGLOBIN 8.5 g/dl (12.0-15.5); MEAN CORPUSCULAR HEMOGLOBIN 29.6 pg (27.0-33.0); MEAN CORPUSCULAR HGB CONC 30.8 g/dl (32.0-36.5); MEAN CORPUSCULAR VOLUME 96.2 fl (80.0-96.0); PLATELET COUNT, AUTOMATED 238 10^3/uL (150-450); RED BLOOD COUNT 2.87 10^6/uL (4.00-5.40); WHITE BLOOD COUNT 8.6 10^3/uL (4.0-10.0)
[2021-03-18 00:38] LABS: INR 1.08; PROTHROMBIN TIME 14.4 SECONDS (12.7-14.5)
[2021-03-18 00:39] LABS: PARTIAL THROMBOPLASTIN TIME 33.5 SECONDS (25.9-37.0)
[2021-03-18 00:45] LABS: HEMOGLOBIN A1c 5.7 %
[2021-03-18 00:50] LABS: CHOLESTEROL RISK RATIO 5.083 (<5); PERCENT SATURATION 15.1 % (13.2-45.0)
[2021-03-18] MEDS ORDERED: HEPARIN SOD (PORCINE) 5000UNITS/ML 1ML VIAL/SYRINGE IV ONE (00:55)
[2021-03-18] MEDS: COMBIVENT RESPIMAT 100-20MCG INHALER 4GM INH SCH ×4 (02:31→20:14)
[2021-03-18] MEDS: LATANOPROST 0.005% OPHTH SOLN 2.5 ML OU SCH ×2 (02:42→21:37)
[2021-03-18] MEDS: FUROSEMIDE 40MG/4ML VIAL (J1940) IV SCH ×3 (02:42→16:46)
[2021-03-18] MEDS: OMEPRAZOLE 20MG CAP PO SCH ×3 (02:42→21:36)
[2021-03-18] MEDS: HEPARIN DRIP 25,000 UNITS in IV 1 EA IV SCH (02:48)
[2021-03-18 04:00] VITALS: BP 126/67
[2021-03-18 05:27] LABS: HEMATOCRIT 27.4 % (36.0-47.0)
[2021-03-18 05:29] LABS: BASO # 0.1 10^3/uL (0.0-0.2); BASO % 0.9 % (0.0-1.0); EOS # 0.1 10^3/uL (0.0-0.5); EOS % 1.5 % (0.0-3.0); HEMATOCRIT 27.2 % (36.0-47.0); HEMOGLOBIN 8.5 g/dl (12.0-15.5); LYMPH # 1.8 10^3/uL (1.5-5.0); LYMPH % 20.9 % (24.0-44.0); MEAN CORPUSCULAR HEMOGLOBIN 29.7 pg (27.0-33.0); MEAN CORPUSCULAR HGB CONC 31.3 g/dl (32.0-36.5); MEAN CORPUSCULAR VOLUME 95.1 fl (80.0-96.0); MONO # 0.6 10^3/uL (0.0-0.8); MONO % 6.8 % (2.0-8.0); NEUTROPHILS # 5.8 10^3/uL (1.5-8.5); NEUTROPHILS % 68.4 % (36.0-66.0); PLATELET COUNT, AUTOMATED 231 10^3/uL (150-450); RED BLOOD COUNT 2.86 10^6/uL (4.00-5.40); WHITE BLOOD COUNT 8.5 10^3/uL (4.0-10.0)
[2021-03-18] MEDS ORDERED: HEPARIN SOD (PORCINE) 5000UNITS/ML 1ML VIAL/SYRINGE SC SCH (06:00)
[2021-03-18 06:21] LABS: CALCIUM LEVEL 9.3 MG/DL (8.8-10.2); CREATININE FOR GFR 1.71 MG/DL (0.55-1.30); GLOMERULAR FILTRATION RATE 29.9 (>32); MAGNESIUM LEVEL 1.7 MG/DL (1.8-2.4); POTASSIUM SERUM 3.7 MEQ/L (3.5-5.1)
[2021-03-18 07:26] VITALS: BP 121/56
[2021-03-18 07:32] LABS: PERCENT SATURATION 15.2 % (13.2-45.0)
[2021-03-18] MEDS: METOPROLOL SUCC *XL* 25MG TAB (TopROL *XL*) PO SCH (09:15)
[2021-03-18] MEDS: ASPIRIN 81MG ENTERIC TABLET PO SCH (09:16)
[2021-03-18] MEDS: CLOPIDOGREL 75 MG TAB PO SCH (09:16)
[2021-03-18] MEDS: DULoxetine 30MG CAPSULE (CYMBALTA) PO SCH (09:16)
[2021-03-18] MEDS: ROSUVASTATIN 10 MG TAB (CRESTOR) PO SCH (09:16)
[2021-03-18 12:00] VITALS: BP 106/59
[2021-03-18] MEDS: ACETAMINOPHEN TAB 650MG DOSE (2X325MG) PO PRN ×2 (14:53→23:28)
[2021-03-18 15:01] LABS: INR 1.06; PROTHROMBIN TIME 14.2 SECONDS (12.7-14.5)
[2021-03-18 15:03] LABS: PARTIAL THROMBOPLASTIN TIME 81.7 SECONDS (25.9-37.0)
[2021-03-18 16:00] VITALS: BP 127/60
[2021-03-18] MEDS: CALCIUM CARBONATE 500 MG CHEW U/D PO PRN (16:46)
[2021-03-18] MEDS: FERROUS SULFATE 325MG TAB PO SCH (16:46)
[2021-03-18 20:00] VITALS: BP 115/57
[2021-03-18] MEDS: FAMOTIDINE 20 MG TAB PO SCH (21:36)
[2021-03-18 23:31] VITALS: BP 120/79
[2021-03-19] MEDS: HEPARIN DRIP 25,000 UNITS in IV 1 EA IV SCH (01:02)
[2021-03-19] MEDS: FUROSEMIDE 40MG/4ML VIAL (J1940) IV SCH ×2 (01:04→09:01)
[2021-03-19 04:30] VITALS: BP 126/57
[2021-03-19 05:40] LABS: BASO # 0.1 10^3/uL (0.0-0.2); BASO % 1.1 % (0.0-1.0); EOS # 0.2 10^3/uL (0.0-0.5); EOS % 2.4 % (0.0-3.0); HEMATOCRIT 27.8 % (36.0-47.0); HEMOGLOBIN 8.5 g/dl (12.0-15.5); LYMPH % 27.8 % (24.0-44.0); MEAN CORPUSCULAR HEMOGLOBIN 29.4 pg (27.0-33.0); MEAN CORPUSCULAR HGB CONC 30.6 g/dl (32.0-36.5); MEAN CORPUSCULAR VOLUME 96.2 fl (80.0-96.0); MONO # 0.6 10^3/uL (0.0-0.8); MONO % 7.8 % (2.0-8.0); NEUTROPHILS # 4.3 10^3/uL (1.5-8.5); NEUTROPHILS % 59.6 % (36.0-66.0); PLATELET COUNT, AUTOMATED 236 10^3/uL (150-450); RED BLOOD COUNT 2.89 10^6/uL (4.00-5.40); WHITE BLOOD COUNT 7.2 10^3/uL (4.0-10.0)
[2021-03-19 06:02] LABS: INR 1.04
[2021-03-19 07:12] LABS: PARTIAL THROMBOPLASTIN TIME 98.3 SECONDS (25.9-37.0)
[2021-03-19 07:41] LABS: CALCIUM LEVEL 8.5 MG/DL (8.8-10.2); CREATININE FOR GFR 2.59 MG/DL (0.55-1.30); GLOMERULAR FILTRATION RATE 18.5 (>32); MAGNESIUM LEVEL 1.6 MG/DL (1.8-2.4)
[2021-03-19 08:00] VITALS: BP 141/65
[2021-03-19] MEDS: COMBIVENT RESPIMAT 100-20MCG INHALER 4GM INH SCH ×3 (08:05→19:22)
[2021-03-19] MEDS: CLOPIDOGREL 75 MG TAB PO SCH (09:01)
[2021-03-19] MEDS: ASPIRIN 81MG ENTERIC TABLET PO SCH (09:01)
[2021-03-19] MEDS: FERROUS SULFATE 325MG TAB PO SCH (09:02)
[2021-03-19] MEDS: DULoxetine 30MG CAPSULE (CYMBALTA) PO SCH (09:02)
[2021-03-19] MEDS: ROSUVASTATIN 10 MG TAB (CRESTOR) PO SCH (09:02)
[2021-03-19] MEDS: OMEPRAZOLE 20MG CAP PO SCH ×2 (09:02→20:01)
[2021-03-19] MEDS: METOPROLOL SUCC *XL* 25MG TAB (TopROL *XL*) PO SCH (09:03)
[2021-03-19] MEDS ORDERED: MAG SULF 1GM/100ML (MAG RUN) 1 GM in IV 1 EA IV ONE (10:00)
[2021-03-19 10:29] LABS: URIC ACID 10.9 MG/DL (2.6-6.0)
[2021-03-19] MEDS: CALCIUM CARBONATE 500 MG CHEW U/D PO PRN (10:58)
[2021-03-19 16:00] VITALS: BP 124/66
[2021-03-19] MEDS ORDERED: QUEtiapine FUMARATE 25 MG TAB PO ONE (16:00)
[2021-03-19] MEDS: ACETAMINOPHEN TAB 650MG DOSE (2X325MG) PO PRN (17:59)
[2021-03-19 20:00] VITALS: BP 113/54
[2021-03-19] MEDS: LATANOPROST 0.005% OPHTH SOLN 2.5 ML OU SCH (20:01)
[2021-03-20] VITALS: BP 112/57
[2021-03-20] MEDS: HEPARIN DRIP 25,000 UNITS in IV 1 EA IV SCH (00:14)
[2021-03-20 04:00] VITALS: BP 110/53
[2021-03-20 05:21] LABS: BASO # 0.1 10^3/uL (0.0-0.2); BASO % 1.2 % (0.0-1.0); EOS # 0.2 10^3/uL (0.0-0.5); EOS % 2.4 % (0.0-3.0); HEMATOCRIT 27.2 % (36.0-47.0); HEMOGLOBIN 8.3 g/dl (12.0-15.5); LYMPH # 1.7 10^3/uL (1.5-5.0); LYMPH % 25.8 % (24.0-44.0); MEAN CORPUSCULAR HEMOGLOBIN 29.6 pg (27.0-33.0); MEAN CORPUSCULAR HGB CONC 30.5 g/dl (32.0-36.5); MEAN CORPUSCULAR VOLUME 97.1 fl (80.0-96.0); MONO # 0.5 10^3/uL (0.0-0.8); MONO % 7.9 % (2.0-8.0); NEUTROPHILS # 4.1 10^3/uL (1.5-8.5); NEUTROPHILS % 61.2 % (36.0-66.0); PLATELET COUNT, AUTOMATED 235 10^3/uL (150-450); WHITE BLOOD COUNT 6.8 10^3/uL (4.0-10.0)
[2021-03-20 05:54] LABS: CALCIUM LEVEL 8.2 MG/DL (8.8-10.2); CREATININE FOR GFR 2.66 MG/DL (0.55-1.30); MAGNESIUM LEVEL 2.1 MG/DL (1.8-2.4); POTASSIUM SERUM 4.2 MEQ/L (3.5-5.1)
[2021-03-20] MEDS: COMBIVENT RESPIMAT 100-20MCG INHALER 4GM INH SCH ×3 (07:14→19:47)
[2021-03-20 08:00] VITALS: BP 121/54
[2021-03-20] MEDS: DULoxetine 30MG CAPSULE (CYMBALTA) PO SCH (08:01)
[2021-03-20] MEDS: ASPIRIN 81MG ENTERIC TABLET PO SCH (08:01)
[2021-03-20] MEDS: FERROUS SULFATE 325MG TAB PO SCH (08:02)
[2021-03-20] MEDS: CLOPIDOGREL 75 MG TAB PO SCH (08:02)
[2021-03-20] MEDS: OMEPRAZOLE 20MG CAP PO SCH ×2 (08:02→20:42)
[2021-03-20] MEDS: METOPROLOL SUCC *XL* 25MG TAB (TopROL *XL*) PO SCH (08:02)
[2021-03-20] MEDS: ROSUVASTATIN 10 MG TAB (CRESTOR) PO SCH (08:02)
[2021-03-20] MEDS: ACETAMINOPHEN TAB 650MG DOSE (2X325MG) PO PRN ×2 (10:42→16:41)
[2021-03-20 12:00] VITALS: BP 115/54
[2021-03-20 13:12] LABS: APPEARANCE, URINE CLEAR (CLEAR); BACTERIA, URINE AUTO NEGATIVE (NEGATIVE); BILIRUBIN, URINE AUTO NEGATIVE (NEGATIVE); BLOOD, URINE BLOOD NEGATIVE (NEGATIVE); COLOR, URINE YELLOW (YELLOW); GLUCOSE, URINE (UA) AUTO NEGATIVE (NEGATIVE); KETONE, URINE AUTO NEGATIVE (NEGATIVE); LEUKOCYTE ESTERASE, URINE AUTO TRACE (NEGATIVE); MUCUS, URINE SMALL (NEGATIVE); NITRITE, URINE AUTO NEGATIVE (NEGATIVE); PROTEIN, URINE AUTO 2+ mg/dL (NEGATIVE); RBC, URINE AUTO 1 /HPF (0-3); SPECIFIC GRAVITY URINE AUTO 1.014 (1.002-1.035); SQUAMOUS EPITHELIAL CELL UR AU 0 /HPF (0-6); UROBILINOGEN, URINE AUTO 0.2 mg/dL (0.0-2.0); WBC, URINE AUTO 1 /HPF (0-3)
[2021-03-20 16:00] VITALS: BP 127/60
[2021-03-20] MEDS: QUEtiapine FUMARATE 25 MG TAB PO SCH (17:09)
[2021-03-20 19:52] VITALS: BP 115/58
[2021-03-20] MEDS: FAMOTIDINE 20 MG TAB PO SCH (20:42)
[2021-03-20] MEDS: LATANOPROST 0.005% OPHTH SOLN 2.5 ML OU SCH (20:42)
[2021-03-21] VITALS: BP 117/57
[2021-03-21 04:00] VITALS: BP 137/64
[2021-03-21 05:31] LABS: BASO # 0.1 10^3/uL (0.0-0.2); BASO % 1.4 % (0.0-1.0); EOS # 0.2 10^3/uL (0.0-0.5); EOS % 2.9 % (0.0-3.0); HEMATOCRIT 27.3 % (36.0-47.0); HEMOGLOBIN 8.3 g/dl (12.0-15.5); LYMPH # 1.3 10^3/uL (1.5-5.0); LYMPH % 22.7 % (24.0-44.0); MEAN CORPUSCULAR HEMOGLOBIN 29.2 pg (27.0-33.0); MEAN CORPUSCULAR HGB CONC 30.4 g/dl (32.0-36.5); MEAN CORPUSCULAR VOLUME 96.1 fl (80.0-96.0); MONO # 0.4 10^3/uL (0.0-0.8); MONO % 7.2 % (2.0-8.0); NEUTROPHILS # 3.8 10^3/uL (1.5-8.5); NEUTROPHILS % 64.6 % (36.0-66.0); PLATELET COUNT, AUTOMATED 230 10^3/uL (150-450); RED BLOOD COUNT 2.84 10^6/uL (4.00-5.40); WHITE BLOOD COUNT 5.8 10^3/uL (4.0-10.0)
[2021-03-21 05:53] LABS: CALCIUM LEVEL 8.5 MG/DL (8.8-10.2); CREATININE FOR GFR 2.45 MG/DL (0.55-1.30); GLOMERULAR FILTRATION RATE 19.8 (>32); MAGNESIUM LEVEL 2.2 MG/DL (1.8-2.4); POTASSIUM SERUM 4.7 MEQ/L (3.5-5.1)
[2021-03-21] MEDS: COMBIVENT RESPIMAT 100-20MCG INHALER 4GM INH SCH ×3 (08:15→19:15)
[2021-03-21] MEDS ORDERED: DARBEPOETIN 100 MCG/0.5 ML *NON-DIALYSIS* SYRINGE (J0881) SC SCH (09:00)
[2021-03-21] MEDS: FERROUS SULFATE 325MG TAB PO SCH (09:29)
[2021-03-21] MEDS: OMEPRAZOLE 20MG CAP PO SCH ×2 (09:29→21:31)
[2021-03-21] MEDS: ASPIRIN 81MG ENTERIC TABLET PO SCH (09:29)
[2021-03-21] MEDS: METOPROLOL SUCC *XL* 25MG TAB (TopROL *XL*) PO SCH (09:29)
[2021-03-21] MEDS: CLOPIDOGREL 75 MG TAB PO SCH (09:29)
[2021-03-21] MEDS: ROSUVASTATIN 10 MG TAB (CRESTOR) PO SCH (09:29)
[2021-03-21] MEDS: DULoxetine 30MG CAPSULE (CYMBALTA) PO SCH (09:29)
[2021-03-21 12:27] VITALS: BP 130/60
[2021-03-21 15:26] VITALS: BP 122/56
[2021-03-21] MEDS: QUEtiapine FUMARATE 25 MG TAB PO SCH (17:17)
[2021-03-21 20:00] VITALS: BP 125/56
[2021-03-21] MEDS: LATANOPROST 0.005% OPHTH SOLN 2.5 ML OU SCH (21:31)
[2021-03-22] VITALS: BP 125/61
[2021-03-22] MEDS: ACETAMINOPHEN TAB 650MG DOSE (2X325MG) PO PRN ×2 (02:11→20:20)
[2021-03-22 04:00] VITALS: BP 132/68
[2021-03-22 05:10] LABS: BASO # 0.1 10^3/uL (0.0-0.2); BASO % 1.3 % (0.0-1.0); EOS # 0.2 10^3/uL (0.0-0.5); EOS % 3.3 % (0.0-3.0); HEMATOCRIT 24.9 % (36.0-47.0); HEMOGLOBIN 7.6 g/dl (12.0-15.5); LYMPH # 1.6 10^3/uL (1.5-5.0); LYMPH % 23.1 % (24.0-44.0); MEAN CORPUSCULAR HEMOGLOBIN 29.5 pg (27.0-33.0); MEAN CORPUSCULAR HGB CONC 30.5 g/dl (32.0-36.5); MEAN CORPUSCULAR VOLUME 96.5 fl (80.0-96.0); MONO # 0.5 10^3/uL (0.0-0.8); NEUTROPHILS # 4.5 10^3/uL (1.5-8.5); PLATELET COUNT, AUTOMATED 214 10^3/uL (150-450); RED BLOOD COUNT 2.58 10^6/uL (4.00-5.40)
[2021-03-22 05:32] LABS: CALCIUM LEVEL 8.5 MG/DL (8.8-10.2); CREATININE FOR GFR 2.08 MG/DL (0.55-1.30); GLOMERULAR FILTRATION RATE 23.9 (>32); MAGNESIUM LEVEL 2.1 MG/DL (1.8-2.4); POTASSIUM SERUM 4.7 MEQ/L (3.5-5.1)
[2021-03-22] MEDS: COMBIVENT RESPIMAT 100-20MCG INHALER 4GM INH SCH ×3 (07:14→20:16)
[2021-03-22 08:00] VITALS: BP 136/63
[2021-03-22] MEDS: ROSUVASTATIN 10 MG TAB (CRESTOR) PO SCH (08:40)
[2021-03-22] MEDS: FERROUS SULFATE 325MG TAB PO SCH (08:40)
[2021-03-22] MEDS: CLOPIDOGREL 75 MG TAB PO SCH (08:40)
[2021-03-22] MEDS: ASPIRIN 81MG ENTERIC TABLET PO SCH (08:40)
[2021-03-22] MEDS: DULoxetine 30MG CAPSULE (CYMBALTA) PO SCH (08:40)
[2021-03-22] MEDS: OMEPRAZOLE 20MG CAP PO SCH ×2 (08:40→20:20)
[2021-03-22] MEDS: METOPROLOL SUCC *XL* 25MG TAB (TopROL *XL*) PO SCH (08:41)
[2021-03-22] MEDS ORDERED: FERRIC CARBOXYMALTOSE INJ 750 MG, VIAL MATE ADAPTER 1 EACH in NS 250 ML IV ONE (11:00)
[2021-03-22 16:00] VITALS: BP 138/58
[2021-03-22] MEDS: QUEtiapine FUMARATE 25 MG TAB PO SCH (17:17)
[2021-03-22 18:18] VITALS: BP 103/61
[2021-03-22] MEDS: FAMOTIDINE 20 MG TAB PO SCH (20:20)
[2021-03-22] MEDS: LATANOPROST 0.005% OPHTH SOLN 2.5 ML OU SCH (20:20)
[2021-03-22] MEDS: DOCUSATE SODIUM 100MG CAPSULE PO PRN (20:20)
[2021-03-22 22:00] VITALS: BP 141/55
[2021-03-23] MEDS: ACETAMINOPHEN TAB 650MG DOSE (2X325MG) PO PRN ×3 (00:28→20:37)
[2021-03-23] MEDS: NYSTATIN 100,000 UNITS/GM TOPICAL PWD 15 GM TOP PRN ×2 (00:28→10:16)
[2021-03-23 06:00] VITALS: BP 157/61
[2021-03-23] MEDS: COMBIVENT RESPIMAT 100-20MCG INHALER 4GM INH SCH ×3 (07:17→19:56)
[2021-03-23 07:21] LABS: BASO # 0.1 10^3/uL (0.0-0.2); BASO % 1.4 % (0.0-1.0); EOS # 0.2 10^3/uL (0.0-0.5); EOS % 3.3 % (0.0-3.0); HEMATOCRIT 27.9 % (36.0-47.0); HEMOGLOBIN 8.2 g/dl (12.0-15.5); LYMPH # 1.7 10^3/uL (1.5-5.0); LYMPH % 25.9 % (24.0-44.0); MEAN CORPUSCULAR HEMOGLOBIN 28.9 pg (27.0-33.0); MEAN CORPUSCULAR HGB CONC 29.4 g/dl (32.0-36.5); MEAN CORPUSCULAR VOLUME 98.2 fl (80.0-96.0); MONO # 0.5 10^3/uL (0.0-0.8); MONO % 7.9 % (2.0-8.0); NEUTROPHILS # 3.8 10^3/uL (1.5-8.5); NEUTROPHILS % 58.7 % (36.0-66.0); PLATELET COUNT, AUTOMATED 229 10^3/uL (150-450); RED BLOOD COUNT 2.84 10^6/uL (4.00-5.40); WHITE BLOOD COUNT 6.4 10^3/uL (4.0-10.0)
[2021-03-23 07:52] LABS: CALCIUM LEVEL 8.9 MG/DL (8.8-10.2); CREATININE FOR GFR 1.79 MG/DL (0.55-1.30); GLOMERULAR FILTRATION RATE 28.4 (>32); MAGNESIUM LEVEL 2.2 MG/DL (1.8-2.4); POTASSIUM SERUM 4.9 MEQ/L (3.5-5.1); URIC ACID 9.9 MG/DL (2.6-6.0)
[2021-03-23 10:00] VITALS: BP 149/72
[2021-03-23] MEDS: CLOPIDOGREL 75 MG TAB PO SCH (10:13)
[2021-03-23] MEDS: METOPROLOL SUCC *XL* 25MG TAB (TopROL *XL*) PO SCH (10:13)
[2021-03-23] MEDS: OMEPRAZOLE 20MG CAP PO SCH ×2 (10:14→20:37)
[2021-03-23] MEDS: DULoxetine 30MG CAPSULE (CYMBALTA) PO SCH (10:14)
[2021-03-23] MEDS: ASPIRIN 81MG ENTERIC TABLET PO SCH (10:14)
[2021-03-23] MEDS: FERROUS SULFATE 325MG TAB PO SCH (10:14)
[2021-03-23] MEDS: ROSUVASTATIN 10 MG TAB (CRESTOR) PO SCH (10:14)
[2021-03-23] MEDS ORDERED: allopurinoL 100 MG TAB PO ONE (11:15)
[2021-03-23] MEDS ORDERED: FUROSEMIDE 40 MG TAB PO ONE (11:15)
[2021-03-23 14:00] VITALS: BP 138/48
[2021-03-23 16:00] VITALS: BP 123/65
[2021-03-23] MEDS: QUEtiapine FUMARATE 25 MG TAB PO SCH (17:37)
[2021-03-23 18:00] VITALS: BP 123/65
[2021-03-23 20:32] VITALS: BP 134/50
[2021-03-23] MEDS: DOCUSATE SODIUM 100MG CAPSULE PO PRN (20:37)
[2021-03-23] MEDS: LATANOPROST 0.005% OPHTH SOLN 2.5 ML OU SCH (20:37)
[2021-03-23] MEDS ORDERED: SODIUM CHLORIDE NASAL 0.65% SPRAY BTL (OCEAN) PRN (20:45)
[2021-03-24] MEDS: ACETAMINOPHEN TAB 650MG DOSE (2X325MG) PO PRN ×2 (01:06→09:42)
[2021-03-24 06:00] VITALS: BP 142/67
[2021-03-24] MEDS: COMBIVENT RESPIMAT 100-20MCG INHALER 4GM INH SCH ×2 (06:00→14:00)
[2021-03-24 06:27] LABS: BASO # 0.1 10^3/uL (0.0-0.2); BASO % 1.5 % (0.0-1.0); EOS # 0.2 10^3/uL (0.0-0.5); EOS % 3.1 % (0.0-3.0); HEMATOCRIT 26.7 % (36.0-47.0); HEMOGLOBIN 8.2 g/dl (12.0-15.5); LYMPH # 1.6 10^3/uL (1.5-5.0); LYMPH % 24.3 % (24.0-44.0); MEAN CORPUSCULAR HEMOGLOBIN 29.8 pg (27.0-33.0); MEAN CORPUSCULAR HGB CONC 30.7 g/dl (32.0-36.5); MEAN CORPUSCULAR VOLUME 97.1 fl (80.0-96.0); MONO # 0.5 10^3/uL (0.0-0.8); MONO % 7.5 % (2.0-8.0); NEUTROPHILS # 4.1 10^3/uL (1.5-8.5); NEUTROPHILS % 61.9 % (36.0-66.0); PLATELET COUNT, AUTOMATED 223 10^3/uL (150-450); RED BLOOD COUNT 2.75 10^6/uL (4.00-5.40); WHITE BLOOD COUNT 6.6 10^3/uL (4.0-10.0)
[2021-03-24 06:54] LABS: CALCIUM LEVEL 8.9 MG/DL (8.8-10.2); CREATININE FOR GFR 1.93 MG/DL (0.55-1.30); MAGNESIUM LEVEL 2.1 MG/DL (1.8-2.4); POTASSIUM SERUM 4.9 MEQ/L (3.5-5.1)
[2021-03-24] MEDS ORDERED: FUROSEMIDE 40 MG TAB PO SCH (09:00)
[2021-03-24] MEDS ORDERED: allopurinoL 100 MG TAB PO SCH (09:00)
[2021-03-24] MEDS: FERROUS SULFATE 325MG TAB PO SCH (09:41)
[2021-03-24] MEDS: DULoxetine 30MG CAPSULE (CYMBALTA) PO SCH (09:41)
[2021-03-24] MEDS: OMEPRAZOLE 20MG CAP PO SCH (09:41)
[2021-03-24] MEDS: ASPIRIN 81MG ENTERIC TABLET PO SCH (09:42)
[2021-03-24 09:43] VITALS: BP 142/67
[2021-03-24] MEDS: METOPROLOL SUCC *XL* 25MG TAB (TopROL *XL*) PO SCH (09:43)
[2021-03-24] MEDS: CLOPIDOGREL 75 MG TAB PO SCH (09:43)
[2021-03-24] MEDS ORDERED: FERR1TAB8 PO (11:38)
[2021-03-24] MEDS ORDERED: ALLO10TA PO (11:38)
[2021-03-24] MEDS ORDERED: COLA100C5 PO (11:38)
[2021-03-24] MEDS ORDERED: CLOP75TA2 PO (11:38)
[2021-03-24] MEDS ORDERED: QUET1TAB17 PO (11:38)
[2021-03-24] MEDS ORDERED: FURO40TA2 PO (11:38)
[2021-03-24] MEDS ORDERED: FAMO20TA PO (11:38)
[2021-03-24] MEDS: ROSUVASTATIN 10 MG TAB (CRESTOR) PO SCH (13:03)
[2021-03-24 14:00] VITALS: BP 134/49
[2021-03-24] MEDS: QUEtiapine FUMARATE 25 MG TAB PO SCH (16:27)
== END 2021-03-24 16:55 | disposition home health service (06) | DRG 280 ==
LOC: EDBD 12:15 → M ED 12:15 → M ED INP 18:23 → ENRESERV 20:50 → M PCU 23:30 → M MSPAV 03-22 18:17
PROVIDERS: ADMIT Internal Medicine; ATTEND Family Medicine
DX: I13.0 Hypertensive heart and chronic kidney disease with heart failure and stage 1 through stage 4 chronic kidney disease, or unspecified chronic kidney disease (principal); I21.4 Non-ST elevation (NSTEMI) myocardial infarction; I50.33 Acute on chronic diastolic (congestive) heart failure; N18.4 Chronic kidney disease, stage 4 (severe); N17.9 Acute kidney failure, unspecified; E78.5 Hyperlipidemia, unspecified; M54.9 Dorsalgia, unspecified; K21.9 Gastro-esophageal reflux disease without esophagitis; H40.9 Unspecified glaucoma; Z20.822 Contact with and (suspected) exposure to COVID-19; Z79.82 Long term (current) use of aspirin; Z79.899 Other long term (current) drug therapy; M19.90 Unspecified osteoarthritis, unspecified site; Z87.891 Personal history of nicotine dependence; D72.829 Elevated white blood cell count, unspecified; D63.1 Anemia in chronic kidney disease; Z66 Do not resuscitate; I25.110 Atherosclerotic heart disease of native coronary artery with unstable angina pectoris

== ENCOUNTER 2021-04-13 11:52 | Inpatient (IN) | payer MEDICARE, BC, MEDICAID ==
[~2021-04-13] VITALS: Ht 167.6 cm; Wt 82.1 kg
[~2021-04-13 11:52] MED LIST changes: +ALLO10TA PO; +CLOP75TA2 PO; +COLA100C5 PO; +DULO60CA35 PO; +ECOT81TA5 PO; +FAMO20TA PO; +FERR1TAB8 PO; +FURO40TA2 PO; +MED REC COMMENT; +OMEP1CAP73 PO; +QUET1TAB17 PO
[2021-04-13 12:47] LABS: VENOUS HCO3 22.9 MEQ/L (23.0-27.0); VENOUS O2 SATURATION 91.3 % (60.0-80.0); VENOUS PARTIAL PRESSURE CO2 34.5 mmHg (38.0-50.0); VENOUS PARTIAL PRESSURE O2 59.8 mmHg (30.0-50.0); VENOUS PH 7.439 UNITS (7.330-7.430); VENOUS STANDARD HCO3 23.5 MEQ/L; VENOUS TOTAL CO2 23.9 MEQ/L (24.0-28.0)
[2021-04-13 12:55] LABS: BASO # 0.1 10^3/uL (0.0-0.2); EOS # 0.2 10^3/uL (0.0-0.5); EOS % 1.4 % (0.0-3.0); HEMATOCRIT 25.5 % (36.0-47.0); LYMPH # 1.1 10^3/uL (1.5-5.0); LYMPH % 8.9 % (24.0-44.0); MEAN CORPUSCULAR HEMOGLOBIN 30.3 pg (27.0-33.0); MEAN CORPUSCULAR HGB CONC 31.4 g/dl (32.0-36.5); MEAN CORPUSCULAR VOLUME 96.6 fl (80.0-96.0); MONO # 0.6 10^3/uL (0.0-0.8); MONO % 4.6 % (2.0-8.0); NEUTROPHILS # 10.3 10^3/uL (1.5-8.5); NEUTROPHILS % 82.6 % (36.0-66.0); PLATELET COUNT, AUTOMATED 172 10^3/uL (150-450); RED BLOOD COUNT 2.64 10^6/uL (4.00-5.40); WHITE BLOOD COUNT 12.5 10^3/uL (4.0-10.0)
[2021-04-13 13:22] LABS: ALBUMIN 3.3 GM/DL (3.2-5.2); BILIRUBIN,DIRECT 0.1 MG/DL (0.0-0.2); BILIRUBIN,TOTAL 0.4 MG/DL (0.2-1.0); CALCIUM LEVEL 8.6 MG/DL (8.8-10.2); CREATININE FOR GFR 1.59 MG/DL (0.55-1.30); GLOMERULAR FILTRATION RATE 32.5 (>32); POTASSIUM SERUM 4.2 MEQ/L (3.5-5.1); THYROID STIMULATING HORMONE 1.03 uIU/ML (0.358-3.740); THYROXINE (T4) 6.3 UG/DL (4.5-12.0); TOTAL PROTEIN 6.9 GM/DL (6.4-8.2)
[2021-04-13] MEDS ORDERED: cefTRIAXone SOD 2 GM in D5W MINI-BAG PLUS 50 ML IV ONE (13:30)
[2021-04-13] MEDS ORDERED: DOXYCYCLINE HYCLATE 100 MG in D5W MINI-BAG PLUS 100 ML IV ONE (15:05)
[2021-04-13] MEDS ORDERED: DOCU100C16 PO (15:33)
[2021-04-13] MEDS ORDERED: FAMO20TA PO (15:33)
[2021-04-13] MEDS ORDERED: COMBAER6 INH (15:33)
[2021-04-13] MEDS ORDERED: QUET1TAB17 PO (15:33)
[2021-04-13] MEDS ORDERED: FERR1TAB8 PO (15:33)
[2021-04-13] MEDS ORDERED: PLAV1TAB2 PO (15:33)
[2021-04-13] MEDS ORDERED: ALLO100T PO (15:33)
[2021-04-13 15:39] LABS: INR 1.1; PROTHROMBIN TIME 14.6 SECONDS (12.7-14.5)
[2021-04-13 15:40] LABS: PARTIAL THROMBOPLASTIN TIME 34.6 SECONDS (25.9-37.0)
[2021-04-13] MEDS ORDERED: HOME MED LIST COMPLETE! XX SCH (15:40)
[2021-04-13 16:00] VITALS: BP 135/62
[2021-04-13] MEDS ORDERED: COMBIVENT RESPIMAT 100-20MCG INHALER 4GM INH PRN (16:25)
[2021-04-13] MEDS ORDERED: NITROGLYCERIN 0.4 MG SUBL TABLET SL PRN (16:25)
[2021-04-13] MEDS ORDERED: DOCUSATE SODIUM 100MG CAPSULE PO PRN (16:25)
[2021-04-13 19:41] VITALS: BP 127/61
[2021-04-13] MEDS ORDERED: HEPARIN SOD (PORCINE) 5000UNITS/ML 1ML VIAL/SYRINGE SQ SCH (21:00)
[2021-04-13] MEDS: ACETAMINOPHEN TAB 650MG DOSE (2X325MG) PO PRN (21:21)
[2021-04-13] MEDS: METOPROLOL SUCC *XL* 25MG TAB (TopROL *XL*) PO SCH (21:21)
[2021-04-13] MEDS: QUEtiapine FUMARATE 25 MG TAB PO SCH (21:22)
[2021-04-13] MEDS: traZODone 50 MG TAB PO SCH (21:22)
[2021-04-13] MEDS: OMEPRAZOLE 20MG CAP PO SCH (21:22)
[2021-04-13] MEDS: MAGNESIUM OXIDE 400MG TAB (MAG-OX) PO SCH (21:22)
[2021-04-13 21:24] VITALS: BP 122/61
[2021-04-13] MEDS: LATANOPROST 0.005% OPHTH SOLN 2.5 ML OU SCH (21:33)
[2021-04-14] VITALS (8 sets, daily range): BP systolic 103–139; BP diastolic 49–60
[2021-04-14 04:00] LABS: HEMATOCRIT 22.6 % (36.0-47.0); MEAN CORPUSCULAR HEMOGLOBIN 30.3 pg (27.0-33.0); MEAN CORPUSCULAR HGB CONC 30.5 g/dl (32.0-36.5); MEAN CORPUSCULAR VOLUME 99.1 fl (80.0-96.0); PLATELET COUNT, AUTOMATED 151 10^3/uL (150-450); RED BLOOD COUNT 2.28 10^6/uL (4.00-5.40); WHITE BLOOD COUNT 7.7 10^3/uL (4.0-10.0)
[2021-04-14 04:06] LABS: HEMOGLOBIN 6.9 g/dl (12.0-15.5)
[2021-04-14 04:18] LABS: CALCIUM LEVEL 8.6 MG/DL (8.8-10.2); CREATININE FOR GFR 1.58 MG/DL (0.55-1.30); GLOMERULAR FILTRATION RATE 32.8 (>32)
[2021-04-14] MEDS ORDERED: NS 1,000 ML IV SCH (04:20)
[2021-04-14] MEDS: DOXYCYCLINE HYCLATE 100 MG in D5W MINI-BAG PLUS 100 ML IV SCH ×2 (04:22→16:03)
[2021-04-14] MEDS ORDERED: FUROSEMIDE 20MG/2ML VIAL (J1940) IV SCH (04:45)
[2021-04-14 05:57] LABS: PERCENT SATURATION 18.9 % (13.2-45.0)
[2021-04-14] MEDS: OMEPRAZOLE 20MG CAP PO SCH ×2 (08:21→20:57)
[2021-04-14] MEDS: DULoxetine 30MG CAPSULE (CYMBALTA) PO SCH (08:21)
[2021-04-14] MEDS: allopurinoL 100 MG TAB PO SCH (08:21)
[2021-04-14] MEDS: ROSUVASTATIN 10 MG TAB (CRESTOR) PO SCH (08:21)
[2021-04-14] MEDS: FERROUS SULFATE 325MG TAB PO SCH (08:21)
[2021-04-14] MEDS: CLOPIDOGREL 75 MG TAB PO SCH (08:21)
[2021-04-14] MEDS: ASPIRIN 81MG ENTERIC TABLET PO SCH (08:21)
[2021-04-14] MEDS: ACETAMINOPHEN TAB 650MG DOSE (2X325MG) PO PRN (08:44)
[2021-04-14] MEDS ORDERED: ENOXAPARIN 30MG/0.3ML SYRINGE (J1650 PER 10MG) SC SCH (09:00)
[2021-04-14 09:34] LABS: FOLATE 7.6 NG/ML (>5.4)
[2021-04-14] MEDS ORDERED: traMADol 50 MG TAB PO PRN (10:00)
[2021-04-14] MEDS: PERCOCET 5MG/325MG TAB PO PRN ×2 (10:42→16:42)
[2021-04-14] MEDS: cefTRIAXone SOD 1 GM in D5W MINI-BAG PLUS 50 ML IV SCH (15:22)
[2021-04-14 16:50] LABS: HEMATOCRIT 26.9 % (36.0-47.0); HEMOGLOBIN 8.6 g/dl (12.0-15.5); MEAN CORPUSCULAR HEMOGLOBIN 30.4 pg (27.0-33.0); MEAN CORPUSCULAR VOLUME 95.1 fl (80.0-96.0); PLATELET COUNT, AUTOMATED 157 10^3/uL (150-450); RED BLOOD COUNT 2.83 10^6/uL (4.00-5.40); WHITE BLOOD COUNT 8.6 10^3/uL (4.0-10.0)
[2021-04-14] MEDS: LATANOPROST 0.005% OPHTH SOLN 2.5 ML OU SCH (20:57)
[2021-04-14] MEDS: QUEtiapine FUMARATE 25 MG TAB PO SCH (20:57)
[2021-04-14] MEDS: MAGNESIUM OXIDE 400MG TAB (MAG-OX) PO SCH (20:57)
[2021-04-14] MEDS: traZODone 50 MG TAB PO SCH (20:57)
[2021-04-14] MEDS: METOPROLOL SUCC *XL* 25MG TAB (TopROL *XL*) PO SCH (21:00)
[2021-04-15] MEDS: DOXYCYCLINE HYCLATE 100 MG in D5W MINI-BAG PLUS 100 ML IV SCH ×2 (05:15→16:40)
[2021-04-15 06:00] VITALS: BP 122/58
[2021-04-15 06:24] LABS: HEMATOCRIT 25.6 % (36.0-47.0); HEMOGLOBIN 8.1 g/dl (12.0-15.5); MEAN CORPUSCULAR HEMOGLOBIN 29.8 pg (27.0-33.0); MEAN CORPUSCULAR HGB CONC 31.6 g/dl (32.0-36.5); MEAN CORPUSCULAR VOLUME 94.1 fl (80.0-96.0); PLATELET COUNT, AUTOMATED 144 10^3/uL (150-450); RED BLOOD COUNT 2.72 10^6/uL (4.00-5.40); WHITE BLOOD COUNT 7.8 10^3/uL (4.0-10.0)
[2021-04-15 06:40] LABS: CALCIUM LEVEL 8.2 MG/DL (8.8-10.2); CREATININE FOR GFR 1.85 MG/DL (0.55-1.30); GLOMERULAR FILTRATION RATE 27.3 (>32); POTASSIUM SERUM 4.3 MEQ/L (3.5-5.1)
[2021-04-15] MEDS: ASPIRIN 81MG ENTERIC TABLET PO SCH (10:03)
[2021-04-15] MEDS: DULoxetine 30MG CAPSULE (CYMBALTA) PO SCH (10:03)
[2021-04-15] MEDS: FAMOTIDINE 20 MG TAB PO SCH (10:04)
[2021-04-15] MEDS: ROSUVASTATIN 10 MG TAB (CRESTOR) PO SCH (10:04)
[2021-04-15] MEDS: allopurinoL 100 MG TAB PO SCH (10:04)
[2021-04-15] MEDS: FERROUS SULFATE 325MG TAB PO SCH (10:05)
[2021-04-15] MEDS: OMEPRAZOLE 20MG CAP PO SCH ×2 (10:05→20:16)
[2021-04-15] MEDS: CLOPIDOGREL 75 MG TAB PO SCH (10:06)
[2021-04-15 14:00] VITALS: BP 126/58
[2021-04-15] MEDS: cefTRIAXone SOD 1 GM in D5W MINI-BAG PLUS 50 ML IV SCH (14:37)
[2021-04-15] MEDS: MAGNESIUM OXIDE 400MG TAB (MAG-OX) PO SCH (20:17)
[2021-04-15] MEDS: traZODone 50 MG TAB PO SCH (20:20)
[2021-04-15] MEDS: PERCOCET 5MG/325MG TAB PO PRN (20:20)
[2021-04-15] MEDS: QUEtiapine FUMARATE 25 MG TAB PO SCH (20:20)
[2021-04-15] MEDS: METOPROLOL SUCC *XL* 25MG TAB (TopROL *XL*) PO SCH (20:20)
[2021-04-15] MEDS: LATANOPROST 0.005% OPHTH SOLN 2.5 ML OU SCH (20:21)
[2021-04-15 21:20] VITALS: BP 133/66
[2021-04-15 22:00] VITALS: BP 123/68
[2021-04-15 22:35] VITALS: BP 118/55
[2021-04-16] MEDS: DOXYCYCLINE HYCLATE 100 MG in D5W MINI-BAG PLUS 100 ML IV SCH ×2 (05:28→17:12)
[2021-04-16 06:00] VITALS: BP 110/51
[2021-04-16 07:37] LABS: HEMATOCRIT 26.8 % (36.0-47.0); HEMOGLOBIN 8.4 g/dl (12.0-15.5); MEAN CORPUSCULAR HEMOGLOBIN 30.3 pg (27.0-33.0); MEAN CORPUSCULAR HGB CONC 31.3 g/dl (32.0-36.5); MEAN CORPUSCULAR VOLUME 96.8 fl (80.0-96.0); PLATELET COUNT, AUTOMATED 154 10^3/uL (150-450); RED BLOOD COUNT 2.77 10^6/uL (4.00-5.40); WHITE BLOOD COUNT 6.8 10^3/uL (4.0-10.0)
[2021-04-16 07:58] LABS: CALCIUM LEVEL 8.7 MG/DL (8.8-10.2); CREATININE FOR GFR 1.75 MG/DL (0.55-1.30); GLOMERULAR FILTRATION RATE 29.1 (>32); POTASSIUM SERUM 4.4 MEQ/L (3.5-5.1)
[2021-04-16] MEDS: FERROUS SULFATE 325MG TAB PO SCH (08:28)
[2021-04-16] MEDS: allopurinoL 100 MG TAB PO SCH (08:28)
[2021-04-16] MEDS: ROSUVASTATIN 10 MG TAB (CRESTOR) PO SCH (08:29)
[2021-04-16] MEDS: DULoxetine 30MG CAPSULE (CYMBALTA) PO SCH (08:29)
[2021-04-16] MEDS: ASPIRIN 81MG ENTERIC TABLET PO SCH (08:29)
[2021-04-16] MEDS: CLOPIDOGREL 75 MG TAB PO SCH (08:30)
[2021-04-16] MEDS: OMEPRAZOLE 20MG CAP PO SCH ×2 (08:30→21:36)
[2021-04-16] MEDS: NYSTATIN 100,000 UNITS/GM TOPICAL PWD 15 GM TOP SCH ×2 (09:00→21:35)
[2021-04-16 14:00] VITALS: BP 119/66
[2021-04-16] MEDS: cefTRIAXone SOD 1 GM in D5W MINI-BAG PLUS 50 ML IV SCH (15:28)
[2021-04-16] MEDS: traZODone 50 MG TAB PO SCH (21:35)
[2021-04-16] MEDS: LATANOPROST 0.005% OPHTH SOLN 2.5 ML OU SCH (21:35)
[2021-04-16] MEDS: QUEtiapine FUMARATE 25 MG TAB PO SCH (21:36)
[2021-04-16] MEDS: MAGNESIUM OXIDE 400MG TAB (MAG-OX) PO SCH (21:36)
[2021-04-16] MEDS: METOPROLOL SUCC *XL* 25MG TAB (TopROL *XL*) PO SCH (21:36)
[2021-04-16 22:00] VITALS: BP 122/64
[2021-04-17 06:00] VITALS: BP 124/62
[2021-04-17 06:02] LABS: HEMOGLOBIN 8.5 g/dl (12.0-15.5); MEAN CORPUSCULAR HEMOGLOBIN 29.6 pg (27.0-33.0); MEAN CORPUSCULAR HGB CONC 30.4 g/dl (32.0-36.5); MEAN CORPUSCULAR VOLUME 97.6 fl (80.0-96.0); PLATELET COUNT, AUTOMATED 166 10^3/uL (150-450); RED BLOOD COUNT 2.87 10^6/uL (4.00-5.40); WHITE BLOOD COUNT 6.8 10^3/uL (4.0-10.0)
[2021-04-17 06:18] LABS: CALCIUM LEVEL 8.8 MG/DL (8.8-10.2); CREATININE FOR GFR 1.57 MG/DL (0.55-1.30); POTASSIUM SERUM 4.6 MEQ/L (3.5-5.1)
[2021-04-17] MEDS: ROSUVASTATIN 10 MG TAB (CRESTOR) PO SCH (09:19)
[2021-04-17] MEDS: ASPIRIN 81MG ENTERIC TABLET PO SCH (09:19)
[2021-04-17] MEDS: OMEPRAZOLE 20MG CAP PO SCH ×2 (09:19→21:07)
[2021-04-17] MEDS: allopurinoL 100 MG TAB PO SCH (09:20)
[2021-04-17] MEDS: DOXYCYCLINE HYCLATE 100MG TABLET PO SCH ×2 (09:20→21:07)
[2021-04-17] MEDS: FERROUS SULFATE 325MG TAB PO SCH (09:20)
[2021-04-17] MEDS: FAMOTIDINE 20 MG TAB PO SCH (09:20)
[2021-04-17] MEDS: NYSTATIN 100,000 UNITS/GM TOPICAL PWD 15 GM TOP SCH ×2 (09:20→21:07)
[2021-04-17] MEDS: DULoxetine 30MG CAPSULE (CYMBALTA) PO SCH (09:20)
[2021-04-17] MEDS: CLOPIDOGREL 75 MG TAB PO SCH (09:20)
[2021-04-17] MEDS: CEFDINIR 300 MG CAP (OMNICEF) PO SCH (13:12)
[2021-04-17 14:00] VITALS: BP 140/68
[2021-04-17] MEDS: METOPROLOL SUCC *XL* 25MG TAB (TopROL *XL*) PO SCH (21:06)
[2021-04-17] MEDS: LATANOPROST 0.005% OPHTH SOLN 2.5 ML OU SCH (21:07)
[2021-04-17] MEDS: MAGNESIUM OXIDE 400MG TAB (MAG-OX) PO SCH (21:07)
[2021-04-17] MEDS: QUEtiapine FUMARATE 25 MG TAB PO SCH (21:07)
[2021-04-17] MEDS: traZODone 50 MG TAB PO SCH (21:07)
[2021-04-17 22:00] VITALS: BP 145/63
[2021-04-17] MEDS: PERCOCET 5MG/325MG TAB PO PRN (23:02)
[2021-04-18 06:00] VITALS: BP 140/50
[2021-04-18 06:26] LABS: HEMATOCRIT 26.8 % (36.0-47.0); HEMOGLOBIN 8.3 g/dl (12.0-15.5); MEAN CORPUSCULAR HEMOGLOBIN 29.9 pg (27.0-33.0); MEAN CORPUSCULAR VOLUME 96.4 fl (80.0-96.0); PLATELET COUNT, AUTOMATED 157 10^3/uL (150-450); RED BLOOD COUNT 2.78 10^6/uL (4.00-5.40); WHITE BLOOD COUNT 5.4 10^3/uL (4.0-10.0)
[2021-04-18 06:46] LABS: CALCIUM LEVEL 9.4 MG/DL (8.8-10.2); CREATININE FOR GFR 1.4 MG/DL (0.55-1.30); GLOMERULAR FILTRATION RATE 37.7 (>32); POTASSIUM SERUM 4.5 MEQ/L (3.5-5.1)
[2021-04-18] MEDS ORDERED: MIDODRINE 5 MG TAB PO ONE (09:50)
[2021-04-18] MEDS: CEFDINIR 300 MG CAP (OMNICEF) PO SCH (09:51)
[2021-04-18] MEDS: NYSTATIN 100,000 UNITS/GM TOPICAL PWD 15 GM TOP SCH ×2 (09:51→21:17)
[2021-04-18] MEDS: OMEPRAZOLE 20MG CAP PO SCH ×2 (09:51→21:16)
[2021-04-18] MEDS: DULoxetine 30MG CAPSULE (CYMBALTA) PO SCH (09:51)
[2021-04-18] MEDS: allopurinoL 100 MG TAB PO SCH (09:51)
[2021-04-18] MEDS: FERROUS SULFATE 325MG TAB PO SCH (09:51)
[2021-04-18] MEDS: ROSUVASTATIN 10 MG TAB (CRESTOR) PO SCH (09:51)
[2021-04-18] MEDS: DOXYCYCLINE HYCLATE 100MG TABLET PO SCH ×2 (09:51→21:16)
[2021-04-18] MEDS: ASPIRIN 81MG ENTERIC TABLET PO SCH (09:51)
[2021-04-18] MEDS: CLOPIDOGREL 75 MG TAB PO SCH (09:51)
[2021-04-18] MEDS: PERCOCET 5MG/325MG TAB PO PRN (13:14)
[2021-04-18 14:00] VITALS: BP 119/51
[2021-04-18 14:08] LABS: BODY FLUID CULTURE Not indicated. (.); LEGIONELLA ANTIGEN URINE Negative (Negative); ORGANISM ID Not indicated. (.); SPECIMEN SOURCE Urine (.); URINE STREP PNEUMONIAE ANTIGEN Negative (Negative)
[2021-04-18] MEDS: MAGNESIUM OXIDE 400MG TAB (MAG-OX) PO SCH (21:16)
[2021-04-18] MEDS: METOPROLOL SUCC *XL* 25MG TAB (TopROL *XL*) PO SCH (21:16)
[2021-04-18] MEDS: QUEtiapine FUMARATE 25 MG TAB PO SCH (21:16)
[2021-04-18] MEDS: LATANOPROST 0.005% OPHTH SOLN 2.5 ML OU SCH (21:17)
[2021-04-18] MEDS: traZODone 50 MG TAB PO SCH (21:17)
[2021-04-18 22:00] VITALS: BP 140/64
[2021-04-19 06:00] VITALS: BP 159/72
[2021-04-19 08:00] VITALS: BP 132/60
[2021-04-19] MEDS: ROSUVASTATIN 10 MG TAB (CRESTOR) PO SCH (09:40)
[2021-04-19] MEDS: OMEPRAZOLE 20MG CAP PO SCH ×2 (09:40→21:24)
[2021-04-19] MEDS: DULoxetine 30MG CAPSULE (CYMBALTA) PO SCH (09:40)
[2021-04-19] MEDS: FAMOTIDINE 20 MG TAB PO SCH (09:40)
[2021-04-19] MEDS: ASPIRIN 81MG ENTERIC TABLET PO SCH (09:40)
[2021-04-19] MEDS: NYSTATIN 100,000 UNITS/GM TOPICAL PWD 15 GM TOP SCH ×2 (09:41→21:25)
[2021-04-19] MEDS: FERROUS SULFATE 325MG TAB PO SCH (09:41)
[2021-04-19] MEDS: allopurinoL 100 MG TAB PO SCH (09:41)
[2021-04-19] MEDS: CLOPIDOGREL 75 MG TAB PO SCH (09:41)
[2021-04-19] MEDS: DOXYCYCLINE HYCLATE 100MG TABLET PO SCH ×2 (09:41→21:24)
[2021-04-19] MEDS: CEFDINIR 300 MG CAP (OMNICEF) PO SCH (09:43)
[2021-04-19 11:02] LABS: BASO # 0.1 10^3/uL (0.0-0.2); BASO % 1.8 % (0.0-1.0); EOS # 0.4 10^3/uL (0.0-0.5); EOS % 5.5 % (0.0-3.0); HEMATOCRIT 28.6 % (36.0-47.0); HEMOGLOBIN 8.8 g/dl (12.0-15.5); LYMPH # 1.3 10^3/uL (1.5-5.0); LYMPH % 19.9 % (24.0-44.0); MEAN CORPUSCULAR HGB CONC 30.8 g/dl (32.0-36.5); MEAN CORPUSCULAR VOLUME 97.6 fl (80.0-96.0); MONO # 0.4 10^3/uL (0.0-0.8); MONO % 6.1 % (2.0-8.0); NEUTROPHILS # 4.1 10^3/uL (1.5-8.5); NEUTROPHILS % 61.8 % (36.0-66.0); PLATELET COUNT, AUTOMATED 185 10^3/uL (150-450); RED BLOOD COUNT 2.93 10^6/uL (4.00-5.40); WHITE BLOOD COUNT 6.7 10^3/uL (4.0-10.0)
[2021-04-19 11:22] LABS: CALCIUM LEVEL 8.9 MG/DL (8.8-10.2); CREATININE FOR GFR 1.43 MG/DL (0.55-1.30); GLOMERULAR FILTRATION RATE 36.8 (>32); POTASSIUM SERUM 4.7 MEQ/L (3.5-5.1)
[2021-04-19 14:00] VITALS: BP 145/65
[2021-04-19] MEDS: PERCOCET 5MG/325MG TAB PO PRN (14:21)
[2021-04-19 16:08] LABS: BODY FLUID CULTURE Not indicated. (.); LEGIONELLA ANTIGEN URINE Negative (Negative); ORGANISM ID Not indicated. (.); SPECIMEN SOURCE Urine (.); URINE STREP PNEUMONIAE ANTIGEN Negative (Negative)
[2021-04-19] MEDS: QUEtiapine FUMARATE 25 MG TAB PO SCH (21:24)
[2021-04-19] MEDS: MAGNESIUM OXIDE 400MG TAB (MAG-OX) PO SCH (21:24)
[2021-04-19] MEDS: METOPROLOL SUCC *XL* 25MG TAB (TopROL *XL*) PO SCH (21:24)
[2021-04-19] MEDS: traZODone 50 MG TAB PO SCH (21:24)
[2021-04-19] MEDS: LATANOPROST 0.005% OPHTH SOLN 2.5 ML OU SCH (21:25)
[2021-04-19 22:00] VITALS: BP 127/60
[2021-04-20 06:00] VITALS: BP 135/59
[2021-04-20] MEDS: ASPIRIN 81MG ENTERIC TABLET PO SCH (09:18)
[2021-04-20] MEDS: FERROUS SULFATE 325MG TAB PO SCH (09:18)
[2021-04-20] MEDS: DULoxetine 30MG CAPSULE (CYMBALTA) PO SCH (09:18)
[2021-04-20] MEDS: ROSUVASTATIN 10 MG TAB (CRESTOR) PO SCH (09:18)
[2021-04-20] MEDS: DOXYCYCLINE HYCLATE 100MG TABLET PO SCH ×2 (09:18→20:19)
[2021-04-20] MEDS: CEFDINIR 300 MG CAP (OMNICEF) PO SCH (09:18)
[2021-04-20] MEDS: CLOPIDOGREL 75 MG TAB PO SCH (09:18)
[2021-04-20] MEDS: allopurinoL 100 MG TAB PO SCH (09:18)
[2021-04-20] MEDS: OMEPRAZOLE 20MG CAP PO SCH ×2 (09:19→20:19)
[2021-04-20] MEDS: NYSTATIN 100,000 UNITS/GM TOPICAL PWD 15 GM TOP SCH ×2 (09:19→20:20)
[2021-04-20] MEDS: METOPROLOL SUCC *XL* 25MG TAB (TopROL *XL*) PO SCH (20:19)
[2021-04-20] MEDS: traZODone 50 MG TAB PO SCH (20:19)
[2021-04-20] MEDS: LATANOPROST 0.005% OPHTH SOLN 2.5 ML OU SCH (20:20)
[2021-04-20] MEDS: MAGNESIUM OXIDE 400MG TAB (MAG-OX) PO SCH (20:20)
[2021-04-20] MEDS: QUEtiapine FUMARATE 25 MG TAB PO SCH (20:20)
[2021-04-21 06:00] VITALS: BP 124/49
[2021-04-21] MEDS: allopurinoL 100 MG TAB PO SCH (09:32)
[2021-04-21] MEDS: CEFDINIR 300 MG CAP (OMNICEF) PO SCH (09:32)
[2021-04-21] MEDS: CLOPIDOGREL 75 MG TAB PO SCH (09:33)
[2021-04-21] MEDS: DOXYCYCLINE HYCLATE 100MG TABLET PO SCH ×2 (09:33→20:39)
[2021-04-21] MEDS: ASPIRIN 81MG ENTERIC TABLET PO SCH (09:33)
[2021-04-21] MEDS: DULoxetine 30MG CAPSULE (CYMBALTA) PO SCH (09:33)
[2021-04-21] MEDS: FAMOTIDINE 20 MG TAB PO SCH (09:33)
[2021-04-21] MEDS: ROSUVASTATIN 10 MG TAB (CRESTOR) PO SCH (09:33)
[2021-04-21] MEDS: NYSTATIN 100,000 UNITS/GM TOPICAL PWD 15 GM TOP SCH ×2 (09:34→20:39)
[2021-04-21] MEDS: OMEPRAZOLE 20MG CAP PO SCH ×2 (09:34→20:39)
[2021-04-21] MEDS: FERROUS SULFATE 325MG TAB PO SCH (09:34)
[2021-04-21] MEDS: LATANOPROST 0.005% OPHTH SOLN 2.5 ML OU SCH (20:38)
[2021-04-21] MEDS: traZODone 50 MG TAB PO SCH (20:39)
[2021-04-21] MEDS: QUEtiapine FUMARATE 25 MG TAB PO SCH (20:39)
[2021-04-21] MEDS: MAGNESIUM OXIDE 400MG TAB (MAG-OX) PO SCH (20:39)
[2021-04-21] MEDS: METOPROLOL SUCC *XL* 25MG TAB (TopROL *XL*) PO SCH (20:40)
[2021-04-21] MEDS ORDERED: LIDOCAINE 5% (LIDODERM) PATCH TD SCH (21:00)
[2021-04-22] MEDS: PERCOCET 5MG/325MG TAB PO PRN (00:43)
[2021-04-22 06:00] VITALS: BP 134/60
[2021-04-22] MEDS: FERROUS SULFATE 325MG TAB PO SCH (08:34)
[2021-04-22] MEDS: CLOPIDOGREL 75 MG TAB PO SCH (08:34)
[2021-04-22] MEDS: ROSUVASTATIN 10 MG TAB (CRESTOR) PO SCH (08:35)
[2021-04-22] MEDS: OMEPRAZOLE 20MG CAP PO SCH ×2 (08:35→20:52)
[2021-04-22] MEDS: allopurinoL 100 MG TAB PO SCH (08:35)
[2021-04-22] MEDS: DULoxetine 30MG CAPSULE (CYMBALTA) PO SCH (08:35)
[2021-04-22] MEDS: DOXYCYCLINE HYCLATE 100MG TABLET PO SCH ×2 (08:35→20:52)
[2021-04-22] MEDS: ASPIRIN 81MG ENTERIC TABLET PO SCH (08:35)
[2021-04-22] MEDS: CEFDINIR 300 MG CAP (OMNICEF) PO SCH (08:35)
[2021-04-22] MEDS: NYSTATIN 100,000 UNITS/GM TOPICAL PWD 15 GM TOP SCH ×2 (08:36→20:53)
[2021-04-22] MEDS ORDERED: **NOTE PATIENT COMMENT** MISC XX SCH (09:00)
[2021-04-22] MEDS: QUEtiapine FUMARATE 25 MG TAB PO SCH (20:52)
[2021-04-22] MEDS: MAGNESIUM OXIDE 400MG TAB (MAG-OX) PO SCH (20:52)
[2021-04-22] MEDS: traZODone 50 MG TAB PO SCH (20:52)
[2021-04-22] MEDS: METOPROLOL SUCC *XL* 25MG TAB (TopROL *XL*) PO SCH (20:53)
[2021-04-22] MEDS: LATANOPROST 0.005% OPHTH SOLN 2.5 ML OU SCH (20:53)
[2021-04-23 06:00] VITALS: BP 127/58
[2021-04-23] MEDS: ASPIRIN 81MG ENTERIC TABLET PO SCH (09:53)
[2021-04-23] MEDS: DULoxetine 30MG CAPSULE (CYMBALTA) PO SCH (09:53)
[2021-04-23] MEDS: FAMOTIDINE 20 MG TAB PO SCH (09:53)
[2021-04-23] MEDS: OMEPRAZOLE 20MG CAP PO SCH ×2 (09:53→20:27)
[2021-04-23] MEDS: ROSUVASTATIN 10 MG TAB (CRESTOR) PO SCH (09:53)
[2021-04-23] MEDS: DOXYCYCLINE HYCLATE 100MG TABLET PO SCH ×2 (09:53→20:27)
[2021-04-23] MEDS: CEFDINIR 300 MG CAP (OMNICEF) PO SCH (09:53)
[2021-04-23] MEDS: allopurinoL 100 MG TAB PO SCH (09:53)
[2021-04-23] MEDS: CLOPIDOGREL 75 MG TAB PO SCH (09:53)
[2021-04-23] MEDS: FERROUS SULFATE 325MG TAB PO SCH (09:53)
[2021-04-23] MEDS: NYSTATIN 100,000 UNITS/GM TOPICAL PWD 15 GM TOP SCH ×2 (09:54→20:27)
[2021-04-23] MEDS: LATANOPROST 0.005% OPHTH SOLN 2.5 ML OU SCH (20:27)
[2021-04-23] MEDS: MAGNESIUM OXIDE 400MG TAB (MAG-OX) PO SCH (20:27)
[2021-04-23] MEDS: traZODone 50 MG TAB PO SCH (20:27)
[2021-04-23 20:28] VITALS: BP 111/55
[2021-04-23] MEDS: METOPROLOL SUCC *XL* 25MG TAB (TopROL *XL*) PO SCH (20:28)
[2021-04-23] MEDS: QUEtiapine FUMARATE 25 MG TAB PO SCH (20:28)
[2021-04-24] MEDS: PERCOCET 5MG/325MG TAB PO PRN (00:25)
[2021-04-24 06:00] VITALS: BP 135/53
[2021-04-24] MEDS: DULoxetine 30MG CAPSULE (CYMBALTA) PO SCH (08:58)
[2021-04-24] MEDS: ROSUVASTATIN 10 MG TAB (CRESTOR) PO SCH (08:58)
[2021-04-24] MEDS: OMEPRAZOLE 20MG CAP PO SCH (08:58)
[2021-04-24] MEDS: FERROUS SULFATE 325MG TAB PO SCH (08:58)
[2021-04-24] MEDS: allopurinoL 100 MG TAB PO SCH (08:58)
[2021-04-24] MEDS: CLOPIDOGREL 75 MG TAB PO SCH (08:58)
[2021-04-24] MEDS: ASPIRIN 81MG ENTERIC TABLET PO SCH (08:58)
[2021-04-24] MEDS: NYSTATIN 100,000 UNITS/GM TOPICAL PWD 15 GM TOP SCH (08:59)
== END 2021-04-24 11:18 | DRG 194 ==
LOC: M ED 11:52 → EDBD 11:52 → M ED INP 14:27 → ENRESERV 14:50 → M MSPAV 15:38
PROVIDERS: ADMIT Internal Medicine; ATTEND General Practice
PROC: 30233N1 Transfusion of Nonautologous Red Blood Cells into Peripheral Vein, Percutaneous Approach (ICD-10-PCS; principal; 2021-04-14)
DX: J18.9 Pneumonia, unspecified organism (principal); I50.32 Chronic diastolic (congestive) heart failure; N18.4 Chronic kidney disease, stage 4 (severe); I24.8 Other forms of acute ischemic heart disease; D64.9 Anemia, unspecified; K21.9 Gastro-esophageal reflux disease without esophagitis; I25.10 Atherosclerotic heart disease of native coronary artery without angina pectoris; H40.9 Unspecified glaucoma; Z79.82 Long term (current) use of aspirin; Z79.899 Other long term (current) drug therapy; E78.5 Hyperlipidemia, unspecified; M19.90 Unspecified osteoarthritis, unspecified site; Z87.891 Personal history of nicotine dependence